=== PATIENT | female | born 1975 | race Caucasian/White ===

== ENCOUNTER 2022-11-09 15:21 | Outpatient (CLI) | payer BC, SELFPAY ==
[2022-11-09 22:29] LABS: Chloride* 101 mmol/L (96-114)
[2022-11-09 22:30] LABS: Sodium* 138 mmol/L (135-149)
[2022-11-09 22:32] LABS: Cholesterol* 186 mg/dL (90-199)
[2022-11-09 22:33] LABS: Blood Urea Nitrogen* 7 mg/dL (5-24); Calcium* 9.7 mg/dL (8.4-10.6); Carbon Dioxide* 25 mmol/L (20-32); Creatinine* 0.5 mg/dL (0.5-1.5); Estimated Glomerular Filt Rate 116 ml/min; Glucose* 126 mg/dL (60-115); Potassium* 4.1 mmol/L (3.6-5.1); Triglycerides* 375 mg/dL (40-149)
[2022-11-09 22:34] LABS: HDL Cholesterol* 30 mg/dL (>=50); LDL Cholesterol Calculated 81 mg/dL (<100)
== END 2022-11-09 15:22 | disposition home or self-care (01) ==
PROVIDERS: Visit Provider Family Medicine
DX: E03.9 Hypothyroidism, unspecified (principal); E11.9 Type 2 diabetes mellitus without complications; I10 Essential (primary) hypertension
CPT/HCPCS: 80048; 80061; 84443; 87086

== ENCOUNTER 2023-05-13 13:42 | Outpatient (CLI) | payer BC, SELFPAY ==
--- NOTE | 2023-05-13 14:00 | CRLHL7_ITS ---
For Patients: As a result of the Century Cures Act, medical imaging exams and procedure reports are released immediately into your electronic medical record. You may view this report before your referring provider. If you have questions, please contact your health care provider. DXA BONE MINERAL DENSITY STUDY Reason for exam: Menopausal syndrome, screening. Current height (in): 61. Weight (lb): 175 Menopause age: N/A Ethnicity: White 1. Have you had a previous hip or vertebral fracture? No. 2. Have you had any fractures during your adult life which did not result from significant trauma (e.g., auto accident)? No. 3. Did either of your parents have a hip fracture? No. 4. Do you smoke? No. 5. Have you ever taken Glucocorticoids? No. 6. Do you have rheumatoid arthritis? No. 7. Do you have secondary osteoporosis? No. 8. Do you drink 3 or more alcoholic drinks per day? No. 9. Are you being treated for osteoporosis? No. 10. Have you ever taken any of the following medications: Actonel, Evista, Fosamax, Miacalcin, Reclast, Boniva, Forteo, HRT (i.e., estrogen/hormone therapy), Protelos, Prolia, Vitamin D, Calcium, other ??? please specify. ANSWER: Yes, vitamin D and calcium. 11. Do you have any of the following medical conditions: Anorexia or bulimia, asthma or emphysema, end stage renal disease, hyperparathyroidism, any seizure disorders, cancer, inflammatory bowel diseases, hysterectomy, other ??? please specify. ANSWER: Yes, hyperparathyroidism. 12. What was your maximum height (inches)? 61. 13. Do you perform weight bearing exercise regularly? No. 14. Do you regularly consume dairy products? Yes. 15. Do you drink caffeinated beverages? Yes. If female: 16. At what age did your period start? 11. 17. Are you premenopausal? Yes. 18. How many full-term pregnancies have you had? 3. 19. Have you ever missed your period for more than 6 months in a row (not including or menopause)? Yes. TECHNIQUE: Bone mineral density study was performed using the [employer]. FINDINGS: The results of the study expressed as bone mineral density (BMD) are as follows: Lumbar spine L1 to L4: BMD: 1.289 g/cm2. Z-score: 2.8. Neck Left: BMD: 0.972 g/cm2. Z-score: 1.7. Right: BMD: 0.929 g/cm2. Z-score: 1.3. Total Left: BMD: 1.268 g/cm2. Z-score: 3.1. Right: BMD: 1.242 g/cm2. Z-score: 2.9. IMPRESSION: Normal findings with no increased fracture risk identified. The Z-score is within the expected range for age (Z-score above -2.0). (The World Health Organization [WHO] criteria do not apply to this patient). This patient does not fit the criteria to use the database of postmenopausal women. That database is useful for perimenopausal and postmenopausal women, and men 50 years old and older. Therefore, the T-scores are not useful to evaluate this patient and only the Z-scores are used. Matt Wilks M.D. Diagnostic Radiologist [email or web address] hunter/Dictated by: Matt Wilks MD @ 05/14/2023 9:21:00 AM (Electronically Signed)
--- NOTE | 2023-05-13 14:40 | CRLHL7_ITS ---
For Patients: As a result of the Cures Act, medical imaging exams and procedure reports are released immediately into your electronic medical record. You may view this report before your referring provider. If you have questions, please contact your health care provider. BILATERAL SCREENING MAMMOGRAM WITH COMPUTER-AIDED DETECTION AND TOMOSYNTHESIS TECHNIQUE: CC and MLO views were obtained. These mammographic images have been obtained using full-field digital technique. These mammographic images were interpreted with the benefit of computer-aided detection. Breast tomosynthesis was used in this interpretation. COMPARISON FILM: 08/20/21, 05/31/19, 03/22/17. FINDINGS: There are scattered areas of fibroglandular density. IMPRESSION: There is no radiographic evidence for malignancy. ASSESSMENT: BI-RADS Category 1: Negative RECOMMENDATION: Routine screening mammogram in 1 year. A lay language report of this examination will be provided to the patient. MATT EDUARDO M.D. Diagnostic Radiologist [email or web address] Transcribed: 05/17/2023, 1:[address]/Dictated by: Matt Eduardo MD @ 05/17/2023 10:38:00 AM (Electronically Signed)
== END 2023-05-13 13:43 | disposition home or self-care (01) ==
LOC: RAD 13:43
PROVIDERS: PCP Family Medicine; Visit Provider Family Medicine
DX: Z12.31 Encounter for screening mammogram for malignant neoplasm of breast (principal); Z13.820 Encounter for screening for osteoporosis; Z78.0 Asymptomatic menopausal state
CPT/HCPCS: 77063; 77067; 77080

== ENCOUNTER 2024-01-12 08:23 | Emergency (ER) | payer BC, MEDICAID, SELFPAY ==
[2024-01-12 08:28] VITALS: BP 153/111; PULSE 76; RESP 18; TEMP 36.2; O2SAT 100; BMI 33.1
--- NOTE | 2024-01-12 08:40 | ED.GENADULT ---
HPI - General Adult General Chief complaint: Urogenital Problems, Female Stated complaint: pain peeing /peeing blood/ back pain Time Seen by Provider: 01/12/24 08:35 History of Present Illness HPI narrative: This 48-year-old female comes in reporting dysuria symptoms including pain full voiding of urine and some low back pain. Symptoms started 2 days ago. She did take azo and Tylenol. She states that her urine is reddish colored now. She was thinking that this is blood in the urine but could be from the azo treatment. She does not report any fevers. Related Data Home Medications Medication Instructions Recorded Confirmed aspirin 81 mg tablet,delayed 81 mg PO QDAY 11/09/22 08/10/23 release blood sugar diagnostic (Contour #10 ea 08/09/23 08/09/23 Next Test Strips) Previous Rx's Medication Instructions Recorded blood-glucose sensor (Dexcom G6 #3 ea 08/10/23 Sensor device) semaglutide 0.25 mg or 0.5 mg (2 0.25 mg (0.368 mL) subcut QWEEK #3 08/10/23 mg/3 mL) subcutaneous pen injector mL ([facility]) blood-glucose transmitter (Dexcom #1 ea 08/19/23 G6 Transmitter device) bupropion HCl 300 mg 24 hr tablet, 300 mg PO QDAY #90 tabs 08/19/23 extended release epinephrine 0.3 mg/0.3 mL 0.3 ml IM ONCE #2 ea 08/19/23 injection, auto-injector fenofibrate 160 mg tablet 160 mg PO QDAY #90 tabs 08/19/23 levothyroxine 137 mcg tablet 137 mcg PO QDAY #90 tabs 08/19/23 metformin 500 mg tablet,extended 1,000 mg (2 x 500 mg) PO BID #360 08/19/23 release 24 hr tabs metoprolol succinate 100 mg 100 mg PO QDAY #90 tabs 08/19/23 tablet,extended release 24 hr omeprazole 20 mg capsule,delayed 20 mg PO QDAY #90 caps 08/19/23 release insulin aspart U-100 100 unit/mL 30 unit (0.3 mL) subcut TID #60 mL 12/08/23 (3 mL) subcutaneous pen (Novolog FlexPen U-100 Insulin aspart) insulin degludec 200 unit/mL (3 100 unit (0.5 mL) subcut QDAY #45 12/08/23 mL) subcutaneous pen (Tresiba mL FlexTouch U-200 insulin) sulfamethoxazole 800 1 tab PO BID #14 tabs 01/12/24 mg-trimethoprim 160 mg tablet (Bactrim DS) Allergies Allergy/AdvReac Type Severity Reaction Status Date / Time azithromycin Allergy Mild Unknown Verified 08/10/23 12:18 Cephalosporins Allergy Mild Unknown Verified 08/10/23 12:18 nitrofurantoin Allergy Mild Unknown Verified 08/10/23 12:18 [From Macrobid] Penicillins Allergy Mild Unknown Verified 08/10/23 12:18 Review of Systems Status of ROS: Reports: 10 or more systems reviewed and unremarkable except as noted in History and below Narrative: Constitutional: No fevers, no weight gain or loss. Eyes: No discharge. No vision changes. HENT: No congestion, no sore throat, no ear pain. Cardiovascular: No chest pain, no palpitations. Respiratory: No shortness of breath, no wheezes, no cough. Gastrointestinal: No abdominal pain, no vomiting, no diarrhea. Genitourinary: Dysuria symptoms as described above. Musculoskeletal: Normal range of motion. Skin: No rashes, no pruritis. Neurological: No dizziness, weakness, sensory change, speech change. Endo/Heme/Allergies: No bruising or bleeding. No polydipsia. Pysch: no suicidality, no anxiety, no insomnia. All other systems reviewed and are negative. [facility] Medical History (Updated 01/12/24 @ 09:32 by Rome Obrien MD) GERD (gastroesophageal reflux disease) ?K21.9 - Gastro-esophageal reflux disease without esophagitis (ICD-10) Primary hypertension ?I10 - Essential (primary) hypertension (ICD-10) Mixed hyperlipidemia ?E78.2 - Mixed hyperlipidemia (ICD-10) Type 2 diabetes mellitus, with long-term current use of insulin ?E11.9 - Type 2 diabetes mellitus without complications (ICD-10) ?Z79.4 - [facility] (current) use of insulin (ICD-10) History of vitamin D deficiency ?Z86.39 - Personal history of other endocrine, nutritional and metabolic disease (ICD-10) Vitamin D deficiency ?E55.9 - Vitamin D deficiency, unspecified (ICD-10) Hypothyroidism ?E03.9 - Hypothyroidism, unspecified (ICD-10) Polycystic ovarian syndrome ?E28.2 - Polycystic ovarian syndrome (ICD-10) Bipolar 1 disorder ?F31.9 - Bipolar disorder, unspecified (ICD-10) Family History (Updated 03/01/23 @ 11:53 by Paulina Tate ~ PSR) Father Heart disease Diabetes Grandmother Lung cancer Social History (Updated 08/10/23 @ 12:26 by Shirin Sosa ~ SMALL ENGINE SPECIALIST, SMALL ENGINE SPECIALIST) Narrative: , 4 kids, 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 Social EtOH What is your current living situation?: I presently have a place to live Problems where you live: no known problems In the past 12 months, utilities in danger of being shut off: no In past 12 months, lack of transportation kept you from medical appts, meetings, work, or getting things needed for daily living: no In the past 12 mos, have been you worried that your food would run out before you had money to buy more?: never true In the past 12 mos, the food you bought just didn't last and you didn't have money to buy more?: never true Smoking Status: Former smoker How often does anyone, including family, friends and others, physically hurt you: never How often does anyone, including family, friends and others, insult or talk down to you: rarely How often does anyone, including family, friends and others, threaten you with harm: never How often does anyone, including family, friends and others, scream or curse at you: rarely Little interest or pleasure in doing things: several days Feeling down, depressed, or hopeless: several days Exam Narrative: Exam Narrative: Constitutional: Well-developed, well-nourished, no acute distress. HEENT: Normocephalic, atraumatic. Neck: Normal range of motion. Nontender. Supple. Heart: Intact distal pulses. Lungs: No chest discomfort. No wheezes, rhonchi, or rales. Abdomen: Diffuse tenderness in the lower abdomen. Low back pain. Back: Normal range of motion. Extremities: Normal range of motion. No injury. Skin: Intact. No rash. Warm. No erythema or pallor. Neurologic: No altered sensation. No weakness. Alert and oriented. Psychiatric: No suicidality. No anxiety or depression. No insomnia. Nursing notes and vitals signs are reviewed. Const: Vital Signs, click to edit/add: Vital Signs - 24 hr 01/12/24 08:28 Temperature 97.1 F L Pulse Rate [Pulse Oximeter] 76 Respiratory Rate 18 Blood Pressure [Ri ght Upper Arm] 153/111 H Pulse Oximetry 100 Oxygen Delivery Me thod Room Air Course Vital Signs Vital signs: Initial Vital Signs Temperature 97.1 F L 01/12/24 08:28 Temperature Source Temporal Artery Scan 01/12/24 08:28 Pulse Rate 76 01/12/24 08:28 Respiratory Rate 18 01/12/24 08:28 Blood Pressure 153/111 H 01/12/24 08:28 Blood Pressure Mean 125 H 01/12/24 08:28 Pulse Oximetry 100 01/12/24 08:28 Oxygen Delivery Method Room Air 01/12/24 08:28 Vital Signs Temperature 97.1 F L 01/12/24 08:28 Pulse Rate 76 01/12/24 08:28 Respiratory Rate 18 01/12/24 08:28 Blood Pressure 153/111 H 01/12/24 08:28 Pulse Oximetry 100 01/12/24 08:28 Oxygen Delivery Method Room Air 01/12/24 08:28 Temperature 97.1 F L 01/12/24 08:28 Pulse Rate 76 01/12/24 08:28 Respiratory Rate 18 01/12/24 08:28 Blood Pressure 153/111 H 01/12/24 08:28 Pulse Oximetry 100 01/12/24 08:28 Oxygen Delivery Method Room Air 01/12/24 08:28 Medical Decision Making [facility] Narrative Medical decision making narrative: This patient comes in with dysuria symptoms typical of urinary tract infection. Urinalysis does confirm evidence of infection. The patient has normal vital signs and is not showing any signs of sepsis. She also has several allergic reactions to antibiotic medicines. She did receive a prescription for Bactrim as sulfa drugs are not listed in her previous allergies. Lab Data Labs: Lab Results 01/12/24 Range/Units 08:31 Urine Color Yellow (Yellow) Urine Appearance Cloudy A (Clear) Urine pH 7.0 (5.0-8.5) Ur Specific [place] 1.015 (1.000-1.030) Urine Protein 2+ A (Negative) Urine Glucose (UA) Trace A (Negative) Urine Ketones Negative (Negative) Urine Blood 3+ A (Negative) Urine Nitrite Negative (Negative) Urine Bilirubin Negative (Negative) Urine Urobilinogen 0.2 (0.2-1.0) Ur Leukocyte Esterase 3+ A (Negative) Urine RBC >100 A (0-2) Urine WBC >100 A (0-5) Ur Squamous Epith Cells Moderate A (None-Few) Urine Bacteria Many A (None) Discharge Plan Discharge Clinical Impression: Urinary tract infection Patient Disposition: Home, Self-Care Condition: Stable Additional Instructions: Take medication as prescribed. Follow up with MD return if worsening. Prescriptions: New sulfamethoxazole-trimethoprim [Bactrim DS] 800-160 mg tablet 1 tab PO BID Qty: 14 0RF No Action aspirin 81 mg tablet,delayed release (DR/EC) 81 mg PO QDAY (DME) Contour Next Test Strips Strip See Rx Instructions .ROUTE .MEDSUPPLY Qty: 10 Rx Instructions: As directed Ozempic 0.25 mg or 0.5 mg (2 mg/3 mL) pen injector 0.25 mg subcut QWEEK Qty: 3 1RF Rx Instructions: for 4 weeks then increase to 0.5 mg weekly (DME) Dexcom G6 Sensor Device See Rx Instructions .Route Qty: 3 5RF Rx Instructions: Change every 10 days omeprazole 20 mg capsule,delayed release(DR/EC) 20 mg PO QDAY Qty: 90 1RF metformin 500 mg tablet extended release 24 hr 1,000 mg PO BID Qty: 360 1RF levothyroxine 137 mcg tablet 137 mcg PO QDAY Qty: 90 1RF fenofibrate 160 mg tablet 160 mg PO QDAY Qty: 90 1RF bupropion HCl 300 mg tablet extended release 24 hr 300 mg PO QDAY Qty: 90 1RF (DME) Dexcom G6 Transmitter Device See Rx Instructions .Route Qty: 1 0RF Rx Instructions: As directed metoprolol succinate 100 mg tablet extended release 24 hr 100 mg PO QDAY Qty: 90 1RF epinephrine 0.3 mg/0.3 mL auto-injector 0.3 ml IM ONCE Qty: 2 2RF Rx Instructions: as a single dose; may repeat once insulin degludec [Tresiba FlexTouch U-200] 200 unit/mL (3 mL) insulin pen 100 unit subcut QDAY Qty: 45 0RF Rx Instructions: Please dispense covered brand per insurance. insulin aspart U-100 [Novolog FlexPen U-100 Insulin] 100 unit/mL (3 mL) insulin pen 30 unit subcut TID Qty: 60 2RF Follow Up/Referrals: Matt Barroso MD [Primary Care Provider] - Stand Alone Forms: [facility] Info Instructions
[2024-01-12 08:55] LABS: Appearance Urine Cloudy (Clear); Bilirubin Urine Negative (Negative); Blood Urine 3+ (Negative); Color Urine Yellow (Yellow); Glucose Urine Trace (Negative); Ketones Urine Negative (Negative); Leukocyte Esterase Urine 3+ (Negative); Nitrite Urine Negative (Negative); Protein Urine 2+ (Negative); Specific Gravity Urine 1.015 (1.000-1.030); Urobilinogen Urine 0.2 (0.2-1.0)
[2024-01-12 09:13] LABS: Bacteria Urine Many; RBC Urine >100 (0-2); Squamous Epithelial Cell Urine Moderate (None-Few); WBC Urine >100 (0-5)
== END 2024-01-12 09:42 | disposition home or self-care (01) ==
PROVIDERS: Emergency Provider Emergency Medicine Emergency Medical Services; PCP Family Medicine
DX: N39.0 Urinary tract infection, site not specified (principal)
CPT/HCPCS: 81001; 87086; 87186; 99283; 99284

== ENCOUNTER 2024-02-11 14:25 | Outpatient (CLI) | payer BC, MEDICAID, SELFPAY ==
--- OUTSIDE RECORDS SUMMARY | 2024-02-11 14:28 | XMS_ITS | Clinical Summary ---
Author Name Unknown Organization [facility] Address [place], [place] [address] Care Team Providers Care Sales Representative Door To Door Name Role Phone Pcp, No Primary Care Provider Unavailabl e Allergies Active Allergy Reactions Criticality Noted Date Comments Azithromycin *Unknown 01/09/2015 Cephalosporins Anaphylaxis 10/14/2006 Nitrofurantoin Anaphylaxis High 09/11/2015 Penicillins Anaphylaxis 10/14/2006 Medications Medication Sig Dispensed Refills Start Date End Date Status EPINEPHrine (EPIPEN) 0.3 mg/0.3 mL injectionIndicatio ns:Anaphylaxis, sequela Inject 1 pen intramuscular as directed if needed. 2 Each 3 05/25/2019 Active Blood-Glucose MeterIndications:U ncontrolled type 2 diabetes mellitus with hyperglycemia (HC) Accucheck Liberty meter 1 Device 05/25/2019 Active blood sugar diagnostic (ACCU-CHEK LIBERTY PLUS TEST STRP) stripIndications:U ncontrolled type 2 diabetes mellitus with hyperglycemia (HC) Dispense test strips covered by the patient insurance. Test 2 times per day. 200 Each 2 05/25/2019 Active lancets (ACCU-CHEK MULTICLIX LANCET)Indications :Uncontrolled type 2 diabetes mellitus with hyperglycemia (HC) Dispense item covered by pt ins. E11.9 NIDDM type II - Test 2 times/day. 200 Each 2 05/25/2019 Active pen needle, diabetic (BD INSULIN PEN NEEDLE UF) 31 gauge x 5/16Indications:D iabetes mellitus without complication (HC) Injects 5 times a day 500 Each 3 06/26/2019 Active flash glucose sensor (FREESTYLE SE 14 DAY SENSOR) kitIndications:Unc ontrolled type 2 diabetes mellitus with hyperglycemia (HC) As directed. Wear each for 14 days 2 Each 11 08/31/2019 Active blood-glucose meterIndications:U ncontrolled type 2 diabetes mellitus with hyperglycemia (HC) Dispense meter, test strips, lancets covered by pt ins. E11.65 NIDDM type II, uncontrolled - Test 3 times/day, Reason: High A1C 1 Device 04/17/2020 Active medroxyPROGESTERon e (PROVERA) 5 mg tabletIndications: PCOS (polycystic ovarian syndrome) 5 mg daily for 10 days every 2-3 months for endometrial protection 60 tablet 2 04/17/2020 Active nicotine (NICOTROL) 10 mg inhalerIndications :Encounter for smoking cessation counseling Inhale 10 mg by mouth every hour if needed for Nicotine Craving. 168 Each 2 09/25/2020 Active aspirin chewable 81 mg chewable tabletIndications: Diabetes mellitus without complication (HC) Take 1 tablet by mouth once daily with a meal. 90 tablet. 3 09/25/2020 Active metoprolol succinate (TOPROL XL) 100 mg Sustained-Release tabletIndications: Essential hypertension Take 1 Tablet (100 mg) by mouth once daily. 90 tablet. 1 08/27/2021 Active metFORMIN (GLUCOPHAGE XR) 500 mg Extended-Release tabletIndications: Uncontrolled type 2 diabetes mellitus with hyperglycemia (HC) Take 2 Tablets (1,000 mg) by mouth 2 times daily with meals. 360 tablet. 1 08/27/2021 Active levothyroxine (SYNTHROID) 137 mcg tabletIndications: Hypothyroidism, unspecified type Take 1 Tablet (137 mcg) by mouth once daily. 90 tablet. 1 08/27/2021 Active liraglutide (VICTOZA) 0.6 mg/0.1 mL (18 mg/3 mL) injectionIndicatio ns:Uncontrolled type 2 diabetes mellitus with hyperglycemia (HC) Inject 0.6 mg subcutaneous once daily. 9 mL 08/27/2021 Active buPROPion (WELLBUTRIN XL) 300 mg Extended-Release tabletIndications: Bipolar affective disorder, remission status unspecified (HC) Take 1 Tablet (300 mg) by mouth every morning. 90 Tablet 1 08/27/2021 Active insulin degludec, U-200, (Tresiba FlexTouch U-200) 200 unit/mL (3 mL) penIndications:Unc ontrolled type 2 diabetes mellitus with hyperglycemia (HC) INJECT 110 UNITS SUBCUTANEOUSLY ONCE DAILY 54 mL 09/18/2021 Active insulin aspart, U-100, (NovoLOG Flexpen U-100 Insulin) 100 unit/mL (3 mL) penIndications:Unc ontrolled type 2 diabetes mellitus with hyperglycemia (HC) Inject 40 units subcutaneous 3 times daily before meals. Plus Corrective dose insulin 90 mL 09/18/2021 Active Active Problems Problem Noted Date Diagnosed Date Uncontrolled type 2 diabetes mellitus with hyper glycemia 08/31/2019 Hypothyroidism (acquired) 08/31/2019 Amenorrhea 08/31/2019 Abdominal pain, RUQ (right upper quadrant) 02/07 Type 2 diabetes mellitus wit hout complication, with long-term current use of insulin 09/19/2017 Hypothyroidism 01/20/2016 Fatty infiltration of liver 11/13/2013 Hyperlipidemia 09/08/2011 Hypertension 07/08/2008 Bipolar disorder, unspecified 01/11/2007 Polycystic ovaries 10/14/2006 Resolved Problems Problem Noted Date Diagnosed Date Resolved Date Type 2 diabetes mellitus without complication 10/14/20 15 09/19/2017 Cough 09/27/2012 12/26/2012 [facility] CONTRACT 11/03/2010 011 Overview: This patient, PCP and Care Guide have signed a letter agreeing on a set of goals for diabetes, hypertension and/or CHF. Please look for [facility] Goal Contract in Chart Review/ Letters and support this effort. Please direct questions to Care Guide Reyna Mendoza Phone number [phone] Hypothyroidism 10/14/2006 01/20/2016 Type 2 Diabetes A1C < 7.5 09/18/2002 Immunizations Name Administration Dates Next Due AMB Influenza, IIV3 (Age >=3 years)(Flu Clinic Only) 07/26/2009 COVID-19 vaccine ([place] [employer] Seeking 30mcg/0.3mL) PF, MDV 11/28/2020,11/07/2020 DTP 09/10/1978, 5,1975,1974 Hepatitis B (Adult) 07/24/2014 Influenza A (H1N1), Inactiva natasha (Age >=3 Years) 10/15/2009 Influenza, IIV3 (Age >=3 years) 08/02/20 12,10/31/2010,10/05/2008,2007,08/13/2006 Influenza, IIV4 08/12/2018, 7,07/23/2016,2014 Influenza,LAIV4 Live Intrana morris (Flumist) 07/24/2014 MMR 02/01/1976 Oral Polio Vaccine 09/10/1978, 5,1975,1974 Td (Age >=7 Years) 03/10/1996 Tdap 03/05/2021,03/20/2010 Family History Medical History Relation Name Comments Psychiatric illness Brother Bipolar GI Disease Father Hepatitis C Psychiatric illness Father bipolar Diabetes Maternal Grandmother Cancer-breast Other paternal cousi n Diabetes Paternal Grandfather Psychiatric illness Paternal Grandfather bipolar Diabetes Paternal Grandmother Diabetes Paternal Uncle Relation Name Status Comments Brother Father Maternal Grandmother Other Paternal Grandfather Paternal Grandmother Paternal Uncle Social History Tobacco Use Types Packs/Day Years Used Date Smoking Tobacco: Every Day Cigarettes Smokeless Tobacco: Never Tobacco Cessation:Counseling Given: Yes Comments:1-2 a day Alcohol Use Standard Drinks/Week Comments Yes 4 (1 standard drink = 0.6 oz pur e alcohol) PHQ-2 Answer Date Recorded PHQ-2 TOTAL SCORE 3 08/27/2021 Social Connections Answer Date Recorded Frequency of Communication with Friends and Fami ly Not on file 10/18/2021 Financial Resource Strain Answer Date R ecorded Difficulty of Paying Living Expenses Not on file 10/18/2021 Difficulty of Paying Living Expenses Not on file 10/18/2021 Sex and Gender Information Value Date Recorded Sex Assigned at Not on file Gender Identity Not on file Sexual Orientation Not on file Obstetrics History Para Term AB IAB SAB Ectopic Multiple Livin g Live Births 9 5 3 0 3 0 2 0 0 3 5 Date Outcome GA Total Labor Labor/2nd/3rd Weight Sex Delivery Anes PTL Soheila A1 A5 Name Cl in Para Para Comments:System Genera natasha. Please review and update details. 10/18 SAB 4w0 d SPONTANEO US Dece ased 10/18 SAB 6w0 d SPONTANEO US Dece ased 10/18 Term 38w 0d 3.32 kg (7 lb 5 oz) M Vag Epidu ral Maribel ng Fran [place] Delivery Location:[facility] 07/24 Term 39w 0d 3.54 kg (7 lb 13 oz) M Vag Epidu ral Maribel ng 9 9 Ap [place] Delivery Location:[facility] 05/09 Term 38w 0d 3.74 kg (8 lb 4 oz) M VAGINAL VACU Epidu ral Maribel ng 4 9 [place] Delivery Location:[facility] 06/12 AB 6w0 d Last Filed Vital Signs Vital Sign Reading Time Taken Comments Blood Pressure 130/83 08/27/2021 1:23 PM [facility] Pulse 68 08/27/2021 1:23 PM [facility] Temperature 37.2 ??C (99 ??F) 07/08/2020 2:26 PM CDT Respiratory Rate 20 04/05/2019 5:49 PM CDT Oxygen Saturation 98% 08/27/2021 1:23 PM [facility] Inhaled Oxygen Concentration - - Weight 83 kg (183 lb) 08/27/2021 1:23 PM [facility] Height 157.5 cm (5' 2) 07/08/2020 2:26 PM CDT Body Mass Index 33.47 07/08/2020 2:26 PM CDT Plan of Treatment Health Maintenance Due Date Last Done Comments Colonoscopy through age 75 02/29/2020 BMI (ht and wt on same day) for age 18+ 07/08/2021 07/08/2020, 04/17/2020, 08/31/2019, Additional history exists Mammogram for age 45-75 08/20/2022 08/20/20, 05/31/2019, 03/22/2017, Additional history exists Depression screening for age 12+ 08/28/2022 08/28/2021, 08/27/2021, 09/25/2020, Additional history exists COVID-19 vaccine series ( season) 2023 11/28/2020, 11/07/2020 Lipids for age 45-75 01/19/2024 01/18/2019, 01/18/2019, 05/20/2018, Additional history exists Influenza for age 9-49 06/18/2024 8, 09/06/2017, 07/23/2016, Additional history exists Pap test for age 21-65 03/05/2026 , 03/05/2021, 12/16/2012, Additional history exists Tetanus booster 03/05/2031 03/05/2021, 06/12/2009, 03/20/2010, Additional history exists HIV for age 15-65 Completed 10/20/2007 Hepatitis C screening for age 18-79 Completed 11/03/2013, 07/06/2008 Tdap Completed 03/05/2021, 03/20/2010 Pneumococcal series for age 6-64 Aged Out No longer eligible based on patient's age to complete this topic Procedures Procedure Name Priority Date/Time Associated Diagnosis Comments XR MAMMO VAN BILAT SCREEN Routine 08/20/2021 11:20 AM CDT Visit for screening mammogram CENTER DIRECTOR LEAD 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 THIN PREP PAP SCREEN IMAGED Routine 03/05/2021 11:34 AM CDT Screening for cervical cancer LIPID PANEL W REFLEX MEASURED LDL Add On 01/18/2019 11:19 AM CDT Dyslipidemia ANTI HCV Routine 11/03/2013 12:33 PM [facility] Elevated LFTs ANTI HIV 1/2 Routine 10/20/2007 2:07 PM [facility] Supervision Of Other Normal from Last 3 Months or Most Recently Relevant to Health Maintenance Results * XR MAMMO VAN BILAT SCREEN (08/20/2021 11:20 AM CDT) Anatomical Region Laterality Modality BREASTS, Breast Left, Breast Right Bilateral Mammography 08/21/2021 2:14 PM CDT Impressions 08/21/2021 4:31 PM CDT RIGHT axillary lymph node enlargement. RECOMMENDATIONS: RIGHT axillary ultrasound recommended. BI-RADS Category 0: Incomplete: Need Additional Imaging Evaluation. A member of the breast health care team will contact the patient to schedule the required additional imaging appointment(s). Dictated by: Matt Wilks MD @08/21/2021 2:14:15 PM/CRL:pjt PATIENTS: You will also receive a letter with your examination results in an easy to read format. ??If you have questions about your results, please contact your referring provider. Narrative 08/21/2021 4:31 PM CDT For Patients: As a result of the 21st Century Cures Act, medical imaging exams and procedure reports are released immediately into your electronic medical record. ??You may view this report before your referring provider. ?? If you have questions, please contact your health care provider. BILATERAL DIGITAL SCREENING MAMMOGRAM WITH COMPUTER-AIDED DETECTION WITH TOMOSYNTHESIS, 08/20/2021 CLINICAL HISTORY: Routine screening exam. COMPARISON: 05/31/2019, 03/22/2017. TECHNIQUE: Digital mammogram in CC and MLO projections including computer-aided detection (CAD). BREAST COMPOSITION: There are scattered areas of fibroglandular density. FINDINGS: RIGHT Breast: Enlarged RIGHT axillary lymph node. LEFT Breast: No suspicious findings. Oliva Ca MD MAMMO * CENTER DIRECTOR LEAD TEACHER THIN PREP PAP SCREEN IMAGED [[id number]] (03/05/2021 11:34 AM CDT) Case Report Gynecologic Cytology Report ? Case: [id number] ? Authorizing Provider: ??Oliva Ca MD ? Collected: ? 03/05/2021 1134 ? Ordering Location: ? [facility] ?? Received: ?03/05/2021 1244 ? Clinic ? First Screen: ?Ashleigh Bradley ? Specimen: ?CENTER DIRECTOR LEAD TEACHER ThinPrep Vial Screening, Cervical ? 03/14/2021 11:00 AM CDT [facility] [employer] LABORAT[facility]-C ENTRAL LABORATORY INTERPRETATION/ RESULT NEGATIVE FOR INTRAEPITHELIAL LESION OR MALIGNANCY (NIL) (none) 03/14/2021 11:00 AM CDT [facility]- ENTRAL LABORATORY NISM(S) Fungal organisms morphologically consistent with Марина species 03/14/2021 11:00 AM CDT [facility] [employer] LABORATORY-C ENTRAL LABORATORY SPECIMEN ADEQUACY Satisfactory for evaluation Endocervical component present 03/14/2021 11:00 AM CDT [facility] [employer] LABORATORY-C ENTRAL LABORATORY HPV REQUEST HPV and PAP 03/14/2021 11:00 AM CDT [facility] [employer] [facility] ENTRAL LABORATORY Date of LMP 11/08/2020 03/14/2021 11:00 AM CDT [facility] [employer] [facility] Last Pap Date 2013 03/14/2021 11:00 AM CDT [facility] [employer] [facility] EN[facility]AL [facility] Last Pap Result NIL 11:00 AM CDT [facility] [employer] LABORAT[facility]-C ENTRAL LABORATORY Abnormal Pap or [place] Bx in last 5 years No 03/14/2021 11:00 AM CDT [facility] [employer] [facility] Menstrual Status Regular Periods 03/14/2021 11:00 AM CDT [facility] [employer] [facility] EN[facility]AL LAB[facility] [place] Bx Done Today No 03/14/2021 11:00 AM CDT [facility] [employer] [facility]- ENTRAL LABORATORY Additional Information None given 03/14/2021 11:00 AM CDT [facility] [employer] [facility]- ENTRAL LABORATORY Comment: Cytology is screened at [facility] - [address], [place] [address] and [facility] - [address], [place] [address] and [facility] - [address] [place] [address] Interpreted at [facility] - [address], [place] [address] Automated Review Successful 03/14/2021 11:00 AM CDT [facility] Comment:Specimen processed s uccessfully by automated construction inspector device, ThinPrep Imaging System, [employer] [facility] DIRECTOR LEAD TEACHER HPV Ordered, Please see separate report 03/14/2021 11:00 AM CDT [facility] Note The pap test is a screening technique, not a diagnostic procedure. It is used primarily to screen for squamous cancers and precursor lesions. Published studies have shown that it is subject to both false negative and false positive results. The pap test should not be used as the sole means to diagnose or exclude pre-malignant and malignant lesions. 03/14/2021 11:00 AM CDT [facility] Other (Cervical) Non-Blood / Unknown 03/05/2021 11:34 AM CDT 03/05/2021 12:44 PM CDT Oliva Ca MD PATHOLOGY/CYTOLOGY [facility] [address] [place] [address], [place] * (ABNORMAL) LIPID PANEL W REFLEX MEASURED LDL (01/18/2019 11:19 AM CDT) CHOLESTEROL,TOTAL 188 100 - 199 mg/dL 01/18/2019 5:31 PM CDT [facility] TRIGLYCERIDES 423(H) <150 mg/dL 01/18/2019 5:31 PM CDT [facility] HDL CHOLESTEROL 28(L) >40 mg/dL 9 5:31 PM CDT [facility] NON-HDL CHOLESTEROL 160(H) <145 mg/dl 01/18/2019 5:31 PM CDT [facility] CHOL/HDL RATIO 6.71(H) <4.50 01/18/2019 5:31 PM CDT [facility] LDL CHOLESTEROL 9 5:31 PM CDT [facility] Comment:Invalid LDL when Tri g >400, reflexed to measured LDL PROVIDER ORDERED STATUS RANDOM 01/18/2019 5:31 PM CDT [facility] Blood BLOOD SPECIMEN / Unknown Venipuncture / Unknown 01/18/2019 11:19 AM CDT 01/18/2019 11:19 AM CDT [facility] [address] [place] [address], * ANTI HCV (11/03/2013 12:33 PM [facility]) ANTI HCV Non-reacti ve [facility] Blood specimen (specimen) BLOOD SPECIMEN / Unknown 11/03/2013 12:33 PM [facility] 11/03/2013 12:13 PM [facility] Karen [facility] SEND OUTS [facility] [place]NAL ZIP [id number] [place] [address] * ANTI HIV 1/2 (10/20/2007 2:07 PM [facility]) ANTI HIV 1/2 Non-reacti ve [facility] Blood specimen (specimen) BLOOD SPECIMEN / Unknown 10/20/2007 2:07 PM [facility] 10/20/2007 1:59 PM [facility] Matt Barroso MD SEND OUTS [facility] [place]IP [address] [address] [place] [address] from Last 3 Months or Most Recently Relevant to Health Maintenance Care Teams Sales Representative Door To Door Relationship Specialty Start Date End Date Pcp, No . PCP - General 10/02/21
--- OUTSIDE RECORDS SUMMARY | 2024-02-11 14:28 | XMS_ITS | Clinical Summary ---
Author Name Unknown Organization [facility] Address [address] [place] [address] Care Team Providers Care Assembly Machine Set Up Mechanic Name Role Phone Unavailable Primary Care Provider Unavailabl e Source Comments You are receiving this document as you are listed as the primary care provider,follow-up provider, or the patient has been referred to you for consultation.This is in compliance with the Medicare and[facility] EHR Incentive Program,which states Providers who transition their patient to another setting of careor provider of care or refers their patient to another provider of care shouldprovide summary care record for each transition of care or referral. [facility] SystemsUniversity [facility]als[facility] Allergies Active Allergy Reactions Criticality Noted Date Comments Azithromycin Rash 07/23/2022 Cephalosporins Anaphylaxis High 10/14/2006 Nitrofurantoin Anaphylaxis High 09/11/2015 Penicillins Anaphylaxis High 10/14/2006 Medications Medication Sig Dispensed Refills Start Date End Date Status aspirin 81 MG chewable tablet Chew and swallow 81 mg by mouth daily. Active omeprazole (PRILOSEC-OTC) 20 MG tabletIndications: Heartburn Take 20 mg by mouth daily. Indications: Heartburn Active Continuous Blood Gluc Sensor (FREESTYLE SE 14 DAY SENSOR) MISCIndications:Un controlled type 2 diabetes mellitus with hyperglycemia (HRC) Change every 14 days 6 Each 3 07/23/2022 Active metoprolol succinate (TOPROL XL) 100 MG 24 hour release tabletIndications: Hypertension, unspecified type (HRC) Take 1 Tablet (100 mg) by mouth daily. 90 Tablet 1 07/23/2022 Active NOVOLOG FLEXPEN 100 UNIT/ML pen injectionIndicatio ns:Uncontrolled type 2 diabetes mellitus with hyperglycemia (HRC) 46u with breakfast and lunch and 40u at supper 90 mL 1 07/23/2022 Active omeprazole (PRILOSEC) 20 MG capsuleIndications :Gastroesophageal reflux disease, unspecified whether esophagitis present Take 1 Capsule (20 mg) by mouth daily. Take 1 hour before a meal. 90 Capsule 3 07/23/2022 Active metFORMIN XR (GLUCOPHAGE XR) 500 MG 24 hour release tabletIndications: Uncontrolled type 2 diabetes mellitus with hyperglycemia (HRC) Take 4 Tablets (2,000 mg) by mouth every evening with a meal. 360 Tablet 1 07/23/2022 Active EPINEPHrine (EPIPEN) 0.3 MG/0.3ML injection Inject 0.3 mL (0.3 mg) intramuscularly once as needed for up to 1 dose. May repeat. 2 Each 1 07/23/2022 Active exenatide ER (BYDUREON BCISE) 2 MG/0.85ML injection penIndications:Unc ontrolled type 2 diabetes mellitus with hyperglycemia (HRC) Inject 0.85 mL (2 mg) subcutaneously once a week. 3.4 mL 1 07/23/2022 Active EUTHYROX 137 MCG tabletIndications: Hypothyroidism (acquired) (HRC) Take 1 Tablet (137 mcg) by mouth daily. 90 Tablet 3 07/23/2022 Active blood glucose (CONTOUR NEXT TEST) test stripIndications:U ncontrolled type 2 diabetes mellitus with hyperglycemia (HRC) Use to test bg 3 times daily. Use as directed. 200 Each 11 07/24/2022 Active Microlet Lancets lancetsIndications :Uncontrolled type 2 diabetes mellitus with hyperglycemia (HRC) Use 1 Each to test three times a day. 200 Each 11 07/24/2022 Active buPROPion (WELLBUTRIN XL) 300 MG 24 hour release tabletIndications: Major depressive disorder, recurrent episode, mild (HRC) Take 1 tablet by mouth once daily 90 Tablet 08/18/2023 Active TRESIBA FLEXTOUCH 200 UNIT/ML SOPNIndications:Un controlled type 2 diabetes mellitus with hyperglycemia (HRC) INJECT 112 UNITS UNDER THE SKIN ONCE DAILY. PLEASE SCHEDULE CLINIC APPOINTMENT FOR FURTHER REFILLS! 18 mL 09/16/2023 Active Active Problems Problem Noted Date Diagnosed Date Major depressive disorder, recurrent episode, mi ld 07/23/2022 Uncontrolled type 2 diabetes mellitus with hyper glycemia 08/31/2019 Hypothyroidism (acquired) 01/20/2016 Hyperlipidemia 09/08/2011 Hypertension 07/08/2008 Immunizations Name Administration Dates Next Due DTP 09/10/1978, 5,1975, 975 Flu Vac (3+ yrs) 08/02/2012, 1,07/26/2009, 008,10/20/2007,08/13/2006,09/15/2005,01/2002 [id number] 10/15/2009 HepB Adult (Engerix-B, 20+ y rs, 3 dose series) 07/24/2014 Influenza [id number] 10/15/2009 Influenza IIV4 (Quadrivalent ) 0.5mL (79365) 08/12/2018,09/06/2017,07/23/2016, 015,10/15/2009 Influenza LAIV (Nasal, 2-49 yrs) 07/24/2014 Influenza Vaccine TIV, Nasal 07/24/2014 MMR 02/01/1976 OPV, Trivalent (Orimune or tOPV) 978,1975,1975, 975 Pfizer Monovalent 12+ Purple Top 11/28/2020,10/19 Td 03/10/1996 Tdap 03/05/2021,03/20/2010 Social History Tobacco Use Types Packs/Day Years Used Date Smoking Tobacco: Some Days Cigarettes 1 3 Tobacco Cessation:Ready to Q uit: Not Asked; Counseling Given: Not Answered Alcohol Use Standard Drinks/Week Comments Yes 2 (1 standard drink = 0.6 oz pur e alcohol) PHQ-2 Answer Date Recorded PHQ-2 Score 0 07/23/2022 Sex and Gender Information Value Date Recorded Sex Assigned at Not on file Gender Identity Not on file Sexual Orientation Not on file Last Filed Vital Signs Vital Sign Reading Time Taken Comments Blood Pressure 138/91 07/23/2022 9:15 AM CDT Pulse 65 07/23/2022 9:15 AM CDT Temperature - - Respiratory Rate - - Oxygen Saturation - - Inhaled Oxygen Concentration - - Weight 84.4 kg (186 lb) 07/23/2022 9:15 AM CDT Height 154.3 cm (5' 0.75) 07/23/2022 9:15 AM CD T Body Mass Index 35.43 07/23/2022 9:15 AM CDT Plan of Treatment Health Maintenance Due Date Last Done Comments Diabetes: Eye Exam 1975 Diabetes: Foot Exam 1975 Hep C Screening (Preventive Services) 1975 Mammogram 1975 Pneumococcal (1 - PCV) 1981 HIV Screening (Preventive Services) 1991 Adult Preventive Visit 1993 HepB (2) 08/21/2014 07/24/2014 FIT Colon Cancer Screening 2019 Diabetes: HGBA1C 10/23/2022 07/23/2022, 08/27/2021 COVID-19 Vaccine ( season) 2023 11/28/2020, 11/07/2020 Influenza (#1) 2023 08/12/2018, 08/19, 07/23/2016, Additional history exists Diabetes: Creatinine 07/23/2023 07/23/2022 Diabetes: Urine Microalbumin 07/23/2023 07/23/2022 Zoster/Shingles (1 of 2) 2025 Cervical Cancer Screening 03/05/2026 03/05/2021 (Com pleted) Diabetes: Lipid Panel 07/23/2027 07/23/2022 DTaP/Tdap/Td (7 - Tdap) 03/05/2031 03/05/20, 03/20/2010, 03/10/1996, Additional history exists IPV (Polio) Completed 09/10/1978, 08/18, 1975, Additional history exists Cholesterol Discontinued 07/23/2022 HepA Aged Out No longer eligi ble based on patient's age to complete this topic Hib Aged Out No longer eligi ble based on patient's age to complete this topic MCV4 Aged Out No longer eligi ble based on patient's age to complete this topic Procedures Procedure Name Priority Date/Time Associated Diagnosis Comments ALBUMIN/CREAT RATIO Routine 07/23/2022 11:01 AM CDT Uncontrolled type 2 diabetes mellitus with hyperglycemia (HRC) BASIC METABOLIC PANEL Routine 07/23/2022 10:53 AM CDT Uncontrolled type 2 diabetes mellitus with hyperglycemia (HRC) HGB A1C Routine 07/23/2022 10:53 AM CDT Uncontrolled type 2 diabetes mellitus with hyperglycemia (HRC) LIPID PANEL & DIRECT LDL (IF NEEDED) Routine 07/23/2022 10:53 AM CDT Uncontrolled type 2 diabetes mellitus with hyperglycemia (HRC) from Last 3 Months or Most Recently Relevant to Health Maintenance Results * (ABNORMAL) Albumin/Creatinine Ratio,Random Urine (07/23/2022 11:01 AM CDT) Albumin/Creati nine Ratio, Urine, Random 65(H) <30 mg/g 07/23/2022 4:17 PM CDT [facility] Albumin, Urine, Random 13.0 mg/L 07/23/2022 4:17 PM CDT [facility] Creatinine, Urine, Random 20 >20 mg/dL mg/dL 07/23/2022 4:17 PM CDT [facility] Urine Non-blood Collection / Unknown 07/23/2022 11:01 AM CDT 07/23/2022 11:01 AM CDT Casi Irvin PA-C LAB_1 [facility] [address] [phone] * (ABNORMAL) Lipid Panel and Direct LDL(If Needed) (07/23/2022 10:53 AM CDT) Cholesterol 199 0 - 199 mg/dL 07/23/2022 3:59 PM CDT [facility] Triglyceride 297(H) <=149 mg/dL 07/23/2022 3:59 PM CDT [facility] HDL Cholesterol 33(L) >=40 mg/dL 07/23/2022 3:59 PM CDT [facility] LDL, Calculated 107 <130 mg/dL 07/23/2022 3:59 PM CDT [facility] Non HDL Chol, Calculated 166(H) <=159 mg/dL 07/23/2022 3:59 PM CDT [facility] Cholesterol/HDL Ratio 6.0 07/23/2022 3:59 PM T [facility] Hours Fasting N/A 07/23/2022 3:59 PM CDT [facility] Blood Venipuncture / Unknown 07/23/2022 10:53 AM CDT 07/23/2022 10:53 AM CDT Casi Irvin PA-C LAB_1 [facility] [address] [address] [phone] [facility] [address] [place] [address] [phone] * (ABNORMAL) Basic Metabolic Panel (07/23/2022 10:53 AM CDT) Sodium 140 136 - 145 mmol/L 07/23/2022 3:59 PM CDT [facility] Potassium 4.4 3.5 - 5.1 mmol/L 07/23/2022 3:59 PM CDT [facility] Chloride 102 98 - 109 mmol/L 07/23/2022 3:59 PM CDT [facility] CO2 27 20 - 29 mmol/L 07/23/2022 3:59 PM CDT [facility] Anion Gap 11 7 - 16 mmol/L 07/23/2022 3:59 PM CDT [facility] Calcium 9.6 8.4 - 10.4 mg/dL 07/23/2022 3:59 PM CDT [facility] BUN 6(L) 7 - 26 mg/dL 07/23/2022 3:59 PM CDT [facility] Creatinine 0.56 0.55 - 1.02 mg/dL 07/23/2022 3:59 PM CDT [facility] GFR, Estimated >60 >60 mL/min/1. 73m2 07/23/2022 3:59 PM CDT [facility] Glucose 138(H) 70 - 100 mg/dL 07/23/2022 3:59 PM CDT [facility] Comment:The given reference range is for the fasting state. Non-fasting reference range for glucose is 70 - 180 mg/dL. Hours Fasting N/A 07/23/2022 3:59 PM CDT [facility] Blood Venipuncture / Unknown 07/23/2022 10:53 AM CDT 07/23/2022 10:53 AM CDT Casi Irvin PA-C LAB_1 Performing Organization Address [facility] Co de Phone Number [facility] [address] [place] [address], [facility] [phone] [facility] [address] [place] [address], [facility] [phone] * (ABNORMAL) Hgb A1C (07/23/2022 10:53 AM CDT) Hemoglobin A1C 9.4(H) <=5.6 % 07/23/2022 4:14 PM CDT [facility] Blood Venipuncture / Unknown 07/23/2022 10:53 AM CDT 07/23/2022 10:53 AM CDT Narrative [facility] - 07/23/2022 4:14 PM CDT For patients not previously diagnosed with diabetes: 5.7-6.4%: Increased risk for diabetes 6.5% and greater: Diagnostic for diabetes For patients diagnosed with diabetes: <8.0%: Goal of therapy for ages 18-75 Clinicians may recommend a higher or lower goal for specific individuals. Casi Irvin PA-C LAB_1 Performing Organization Address City/[facility] Co de Phone Number [facility] [address] [place] [address], [facility] [phone] from Last 3 Months or Most Recently Relevant to Health Maintenance
== END 2024-02-11 14:26 | disposition home or self-care (01) ==
PROVIDERS: PCP Family Medicine; Visit Provider Family Medicine
DX: E78.2 Mixed hyperlipidemia (principal); E03.9 Hypothyroidism, unspecified; I10 Essential (primary) hypertension; E11.65 Type 2 diabetes mellitus with hyperglycemia; Z79.4 Long term (current) use of insulin
CPT/HCPCS: 80048; 80061; 80076; 84443

== ENCOUNTER 2024-08-07 11:12 | Outpatient (CLI) | payer BC, MEDICAID, SELFPAY ==
--- OUTSIDE RECORDS SUMMARY | 2024-08-07 11:16 | XMS_ITS | Clinical Summary ---
Author Organization [facility] Address [address] [place] [address] Care Team Providers Care Biology Professor Name Role Phone Unavailable Primary Care Provider Unavailabl e Source Comments You are receiving this document as you are listed as the primary care provider,follow-up provider, or the patient has been referred to you for consultation.This is in compliance with the Medicare and[facility] EHR Incentive Program,which states Providers who transition their patient to another setting of careor provider of care or refers their patient to another provider of care shouldprovide summary care record for each transition of care or referral. [employer] Allergies Active Allergy Reactions Criticality Noted Date [...] Flu Vac (3+ yrs) 08/02/2012, 1,07/26/2009, 008,10/20/2007,08/13/2006,09/15/2005,01/2002 [id number] 10/15/2009 HepB Adult (Engerix-B, 20+ y rs, 3 dose series) 07/24/2014 Influenza T7X4-18 10/15/2009 Influenza IIV4 (Quadrivalent ) 0.5mL (93624) 08/12/2018,09/06/2017,07/23/2016, 015,10/15/2009 Influenza LAIV (Nasal, 2-49 yrs) 07/24/2014 Influenza LAIV3 2-49 years (Flumist) 07/24/2014 MMR 02/01/1976 OPV, Trivalent (Orimune or [...] Screening 2019 Diabetes: HGBA1C 10/23/2022 07/23/2022, 08/27/2021 Diabetes: Creatinine 07/23/2023 07/23/2022 Diabetes: Urine Microalbumin 07/23/2023 07/23/2022 COVID-19 Vaccine ( season) 2024 11/28/2020, 11/07/2020 Influenza (#1) 2024 08/12/2018, 08/19, 07/23/2016, Additional history exists Zoster/Shingles (1 of 2) 2025 Cervical Cancer Screening 03/05/2026 03/05/2021 (Com pleted) Diabetes: Lipid Panel 07/23/2027 07/23/2022 DTaP/Tdap/Td (7 - Tdap) 03/05/2031 03/05/20 21, 03/20/2010, 03/10/1996, Additional history exists IPV (Polio) Completed 09/10/1978, 08/18, 1975, Additional history exists Cholesterol Discontinued 07/23/2022 HepA Aged Out No longer eligi ble based on patient's age to complete this topic Hib Aged Out No longer eligi ble based on patient's age to complete this topic RSV Aged Out No longer eligi ble based [...] 65(H) <30 mg/g 07/23/2022 4:17 PM CDT [facility] TechnologiesLINCOL[facility] MED[facility] CENTERTerra [facility] Albumin, Urine, Random 13.0 mg/L 07/23/2022 4:17 PM CDT [facility] [place] [facility] Creatinine, Urine, Random 20 >20 mg/dL mg/dL 07/23/2022 4:17 PM CDT [facility] Urine Non-blood Collection / Unknown 07/23/2022 11:01 AM CDT 07/23/2022 11:01 AM CDT Casi Irvin PA-C LAB_1 Performing Organization Address City/State/[facility] Co de Phone Number [facility] [address] [phone] * (ABNORMAL) Lipid Panel and Direct LDL(If Needed) (07/23/2022 10:53 AM CDT) Cholesterol 199 0 - 199 mg/dL 07/23/2022 3:59 PM CDT [facility] TechnologiesLINCOLN COUNTY MEDICAL CENTERT[facility] Triglyceride 297(H) <=149 mg/dL 07/23/2022 3:59 PM CDT [facility] HDL Cholesterol 33(L) >=40 mg/dL 07/23/2022 3:59 PM CDT [facility] LDL, Calculated 107 <130 mg/dL 07/23/2022 3:59 PM CDT [facility] Non HDL Chol, Calculated 166(H) <=159 mg/dL 07/23/2022 3:59 PM CDT [facility] Cholesterol/HDL Ratio 6.0 07/23/2022 3:59 PM CDT [facility] Hours Fasting N/A 07/23/2022 3:59 PM CDT [facility] Blood Venipuncture / Unknown 07/23/2022 10:53 AM CDT 07/23/2022 10:53 AM CDT Casi Irvin PA-C LAB_1 [facility] [address] [address] [phone] [facility] [address] [place] [address], [facility] [phone] * (ABNORMAL) Basic Metabolic Panel (07/23/2022 10:53 AM CDT) Sodium 140 136 - 145 mmol/L 07/23/2022 3:59 PM CDT [facility] Potassium 4.4 3.5 - 5.1 mmol/L 07/23/2022 3:59 PM CDT [facility] Chloride 102 98 - 109 mmol/L 07/23/2022 3:59 PM CDT [facility] CO2 27 20 - 29 mmol/L 07/23/2022 3:59 PM CDT [facility] Anion Gap 11 7 - 16 mmol/L 07/23/2022 3:59 PM CDT [facility] Calcium 9.6 8.4 - 10.4 mg/dL 07/23/2022 3:59 PM CDT [facility] BUN 6(L) 7 - 26 mg/dL 07/23/2022 3:59 PM CDT [facility] Creatinine 0.56 0.55 - 1.02 mg/dL 07/23/2022 3:59 PM CDT [facility] GFR, Estimated >60 >60 mL/min/1. 73m2 07/23/2022 3:59 PM CDT [facility] Glucose 138(H) 70 - 100 mg/dL 07/23/2022 3:59 PM CDT [facility] Comment:The given reference range is for the fasting state. Non-fasting reference range for glucose is 70 - 180 mg/dL. Hours Fasting N/A 07/23/2022 3:59 PM CDT [facility] Blood Venipuncture / Unknown 07/23/2022 10:53 AM CDT 07/23/2022 10:53 AM CDT Casi Irvin PA-C LAB_1 Performing Organization Address [facility] Co de Phone Number [facility] [address] [place] [address], [facility] [phone] [facility] [address] [place] [address], [facility] [phone] * (ABNORMAL) Hgb A1C (07/23/2022 10:53 AM CDT) Hemoglobin A1C 9.4(H) <=5.6 % 07/23/2022 4:14 PM CDT [facility] Blood Venipuncture / Unknown 07/23/2022 10:53 AM CDT 07/23/2022 10:53 AM CDT Narrative [facility] - 07/23/2022 4:14 PM CDT For patients not previously diagnosed with diabetes: 5.7-6.4%: Increased risk for diabetes 6.5% and greater: Diagnostic for diabetes For patients diagnosed with diabetes: <8.0%: Goal of therapy for ages 18-75 Clinicians may recommend a higher or lower goal for specific individuals. Casi Irvin PA-C LAB_1 Performing Organization Address [facility] Co de Phone Number [facility] [address] [place] [address], [facility] [phone] from Last 3 Months or Most Recently Relevant to Health Maintenance
--- OUTSIDE RECORDS SUMMARY | 2024-08-07 11:16 | XMS_ITS | Clinical Summary ---
Author Organization [facility] Address [place], [place] [address] Care Team Providers Care Manufacturing Worker Name Role Phone Pcp, No Primary Care [...] 09/27/2012 12/26/2012 [facility] CONTRACT 11/03/2010 011 Overview (11/03/2010): This patient, PCP and Care Guide have signed a letter agreeing on a set of goals for diabetes, hypertension and/or CHF. Please look for [facility] Care Goal Contract in Chart Review/ Letters and support this effort. Please direct questions to Care Guide Reyna Mendoza Phone number [phone] Hypothyroidism 10/14/2006 01/20/2016 Type 2 Diabetes A1C < 7.5 09/18/2002 Immunizations Name Administration Dates Next Due AMB Influenza, IIV3 (Age >=3 years)(Flu Clinic Only) 07/26/2009 COVID-19 vaccine (LoiLo 30mcg/0.3mL) PF, MDV 11/28/2020,11/07/2020 DTP 09/10/1978, 5,1975,1974 [...] Outcome GA Total Labor Labor/2nd/3rd Weight Sex Type Anes PTL Soheila A1 A5 Name Clin Para Para Comments:System Genera natasha. Please review and update details. 1997 SAB 4w0 d SPONTA NEOUS Decea sed 2000 SAB 6w0 d SPONTA NEOUS Decea sed 2002 Term 38w 0d 3.32 kg (7 lb 5 oz) M Vag Epidur al Livin g Fran [place] Delivery Location:[facility] 2004 Term 39w 0d 3.54 kg (7 lb 13 oz) M Vag Epidur al Livin g 9 9 Ap Mc[place] Delivery Location:[facility] 2007 Term 38w 0d 3.74 kg (8 lb 4 oz) M VAGINA L VACU Epidur al Livin g 4 9 Mc[place] Delivery Location:[facility] 2009 AB 6w0 d Last Filed Vital Signs Vital Sign Reading Time Taken Comments Blood Pressure 130/83 08/27/2021 1:23 PM STAVE LOG CUT OFF SAW OPERATOR Pulse 68 08/27/2021 1:23 PM STAVE LOG CUT OFF SAW OPERATOR Temperature 37.2 ??C (99 ??F) 07/08/2020 2:26 PM CDT Respiratory Rate 20 04/05/2019 5:49 PM CDT Oxygen Saturation 98% 08/27/2021 1:23 PM STAVE LOG CUT OFF SAW OPERATOR Inhaled Oxygen Concentration - - Weight 83 kg (183 lb) 08/27/2021 1:23 PM STAVE LOG CUT OFF SAW OPERATOR Height 157.5 cm (5' 2) 07/08/2020 2:26 PM CDT Body Mass Index 33.47 07/08/2020 2:26 PM CDT Plan of Treatment Health Maintenance Due Date Last Done Comments Colonoscopy through age 75 02/29/2020 BMI (ht and wt on same day) for age 18+ 07/08/2021 07/08/2020, 04/17/2020, 08/31/2019, Additional history exists Mammogram for age 45-75 08/20/2022 08/20/20 21, 05/31/2019, 03/22/2017, Additional history exists Depression screening for age 12+ 08/28/2022 08/28/2021, 08/27/2021, 09/25/2020, Additional history exists Lipids for age 45-75 01/19/2024 01/18/2019, 01/18/2019, 05/20/2018, Additional history exists COVID-19 vaccine series ( season) 2024 11/28/2020, 11/07/2020 Influenza for age 9-49 06/18/2024 8, 09/06/2017, [...] 11:20 AM CDT Visit for screening mammogram AUTOMATIC MACHINES SUPERVISOR THIN PREP PAP SCREEN IMAGED Routine 03/05/2021 11:34 AM CDT Screening for cervical cancer LIPID PANEL W REFLEX MEASURED LDL Add On 01/18/2019 11:19 AM CDT Dyslipidemia ANTI HCV Routine 11/03/2013 12:33 PM STAVE LOG CUT OFF SAW OPERATOR Elevated LFTs ANTI HIV 1/2 Routine 10/20/2007 2:07 PM STAVE LOG CUT OFF SAW OPERATOR Supervision Of Other Normal from Last 3 [...] Dictated by: Matt Wilks MD @08/21/2021 2:14:15 PM/CRL:chiquitat PATIENTS: You will also receive a letter [...] suspicious findings. Oliva Ca MD MAMMO * AUTOMATIC MACHINES SUPERVISOR THIN PREP PAP SCREEN IMAGED [[id number]] (03/05/2021 11:34 AM CDT) Case Report Gynecologic Cytology Report ? Case: [id number] ? Authorizing Provider: ??Oliva Ca MD ? Collected: ? 03/05/2021 1134 ? Ordering Location: ? [facility] ?? Received: ?03/05/2021 1244 ? Clinic ? [facility] Screen: ?Ashleigh Bradley ? Specimen: ?AUTOMATIC MACHINES SUPERVISOR ThinPrep Vial Screening, Cervical ? 03/14/2021 11:00 AM CDT [facility] INTERPRETATION/ RESULT NEGATIVE FOR INTRAEPITHELIAL LESION OR MALIGNANCY (NIL) (none) 03/14/2021 11:00 AM CDT [facility] ENTRAL LABORAT[facility] NISM(S) Fungal organisms morphologically consistent with Марина species 03/14/2021 11:00 AM CDT [facility] SPECIMEN ADEQUACY Satisfactory for evaluation Endocervical component present 03/14/2021 11:00 AM CDT [facility]-C ENTRAL LABORATORY HPV REQUEST HPV and PAP 03/14/2021 11:00 AM CDT [facility] Date of LMP 11/08/2020 03/14/2021 11:00 AM CDT [facility] EN[facility]AL LABOR[facility] Last Pap Date 2013 03/14/2021 11:00 AM CDT [facility] EN[facility] Last Pap Result NIL 11:00 AM CDT [facility] ENTRAL LABORATORY Abnormal Pap or [place] Bx in last 5 years No 03/14/2021 11:00 AM CDT [facility] ENTRAL LABORATORY Menstrual Status Regular Periods 03/14/2021 11:00 AM CDT [facility] ENTRAL LAB[facility]ATORY [place] Bx Done Today No 03/14/2021 11:00 AM CDT [facility]-C ENTRAL LABORATORY Additional Information None given 03/14/2021 11:00 AM CDT [facility] [facility] EN[facility]AL LABORATORY Comment: Cytology is screened at [facility] - [address], [place] [address] and [facility] - [address], [place] [address] and [facility] - [address] [place] [address] Interpreted at [facility] - [address], [place] [address] Automated Review Successful 03/14/2021 11:00 AM CDT [facility] Comment:Specimen processed s uccessfully by automated yarn man device, ThinPrep Imaging System, [employer] ANCILLARY TESTING AUTOMATIC MACHINES SUPERVISOR HPV Ordered, Please see separate report 03/14/2021 11:00 AM CDT [facility] Note The pap test is [...] pre-malignant and malignant lesions. 03/14/2021 11:00 AM T [facility] Other (Cervical) Non-Blood / Unknown 03/05/2021 11:34 AM CDT 03/05/2021 12:44 PM CDT Oliva Ca MD PATHOLOGY/CYTOLOGY [facility] [address] [place] [address], [place] * (ABNORMAL) LIPID PANEL W REFLEX MEASURED LDL (01/18/2019 11:19 AM CDT) CHOLESTEROL,TOTAL 188 100 - 199 mg/dL 01/18/2019 5:31 PM CDT [facility] TRAL LABORATORY TRIGLYCERIDES 423(H) <150 mg/dL 01/18/2019 5:31 PM CDT [facility] TRAL LAB[facility] HDL CHOLESTEROL 28(L) >40 mg/dL 9 5:31 PM CDT [facility] NON-HDL CHOLESTEROL 160(H) <145 mg/dl 01/18/2019 5:31 PM CDT [facility] CHOL/HDL RATIO 6.71(H) <4.50 01/18/2019 5:31 PM CDT [facility] TR[facility] LAB[facility] LDL CHOLESTEROL 9 5:31 PM CDT [facility] Comment:Invalid LDL when Tri g >400, reflexed to measured LDL PROVIDER ORDERED STATUS RANDOM 01/18/2019 5:31 PM CDT [facility] TR[facility] Blood BLOOD SPECIMEN / Unknown Venipuncture / Unknown 01/18/2019 11:19 AM CDT 01/18/2019 11:19 AM CDT [facility] [address] [place] [address], * ANTI HCV (11/03/2013 12:33 PM STAVE LOG CUT OFF SAW OPERATOR) ANTI HCV Non-reacti ve [facility] Blood specimen (specimen) BLOOD SPECIMEN / Unknown 11/03/2013 12:33 PM STAVE LOG CUT OFF SAW OPERATOR 11/03/2013 12:13 PM STAVE LOG CUT OFF SAW OPERATOR Karen [facility] [place]NAL ZIP [id number] [place] [address] * ANTI HIV 1/2 (10/20/2007 2:07 PM STAVE LOG CUT OFF SAW OPERATOR) ANTI HIV 1/2 Non-reacti ve [facility] Blood specimen (specimen) BLOOD SPECIMEN / Unknown 10/20/2007 2:07 PM STAVE LOG CUT OFF SAW OPERATOR 10/20/2007 1:59 PM STAVE LOG CUT OFF SAW OPERATOR Matt Barroso MD [facility] [place]IP [address] [address] [place] [address] from Last 3 Months or Most Recently Relevant to Health Maintenance Care Teams Manufacturing Worker Relationship Specialty Start Date End Date Pcp, No . PCP - General 10/02/21
== END 2024-08-07 11:13 | disposition home or self-care (01) ==
PROVIDERS: PCP Family Medicine; Visit Provider Family Medicine
DX: E11.9 Type 2 diabetes mellitus without complications (principal); I10 Essential (primary) hypertension; E78.2 Mixed hyperlipidemia; Z79.4 Long term (current) use of insulin; Z13.9 Encounter for screening, unspecified
CPT/HCPCS: 80048; 80061; 85025

== ENCOUNTER 2024-10-06 08:28 | Emergency (ER) | payer BC, SELFPAY ==
[2024-10-06 08:33] VITALS: BP 158/87; PULSE 72; RESP 18; TEMP 36.4; O2SAT 100; BMI 33.2
--- NOTE | 2024-10-06 08:36 | ED_ITS ---
HPI - Female Genitourinary General Time Seen by Provider: 08:36 Date Seen: 10/06/24 Chief complaint: Urogenital Problems, Female Stated complaint: Likely UTI Time Seen by Provider: 10/06/24 08:36 Source: patient, RN notes reviewed and old records reviewed Mode of arrival: ambulatory Limitations: no limitations History of Present Illness HPI Narrative: 49-year-old female who presents today with painful urination and frequency starting yesterday. No abdominal pain, no flank pain, no fever, no nausea nor vomiting. Related Data Home Medications ?Medication ?Instructions ?Recorded ?Confirmed aspirin 81 mg tablet,delayed 81 mg PO QDAY 11/09/22 08/07/24 release blood sugar diagnostic (Contour #10 ea 08/09/23 08/07/24 Next Test Strips) cranberry 500 mg capsule 500 mg PO QDAY 08/07/24 08/07/24 Previous Rx's ?Medication ?Instructions ?Recorded semaglutide 0.25 mg or 0.5 mg (2 0.25 mg (0.368 mL) subcut QWEEK #3 08/10/23 mg/3 mL) subcutaneous pen injector mL (Ozempic) epinephrine 0.3 mg/0.3 mL 0.3 ml IM ONCE #2 ea 08/19/23 injection, auto-injector bupropion HCl 300 mg 24 hr tablet, 300 mg PO QDAY #90 tabs 02/11/24 extended release metformin 500 mg tablet,extended 1,000 mg (2 x 500 mg) PO BID #360 02/11/24 release 24 hr tabs metoprolol succinate 100 mg 100 mg PO QDAY #90 tabs 02/11/24 tablet,extended release 24 hr omeprazole 20 mg capsule,delayed 20 mg PO QDAY #90 caps 02/11/24 release levothyroxine 137 mcg tablet 137 mcg PO QDAY #90 tabs 02/18/24 insulin degludec 200 unit/mL (3 100 unit (0.5 mL) subcut QDAY #45 07/12/24 mL) subcutaneous pen (Tresiba mL FlexTouch U-200 insulin) blood-glucose sensor (Uniregistry G7 #2 ea 08/07/24 Sensor device) insulin aspart U-100 100 unit/mL 40 - 44 unit (0.4 - 0.44 mL) 09/08/24 (3 mL) subcutaneous pen (Novolog subcut TID #15 mL FlexPen U-100 Insulin aspart) fenofibrate 160 mg tablet 160 mg PO QDAY #90 tabs 09/18/24 ciprofloxacin HCl 500 mg tablet 500 mg PO BID #14 tabs 10/06/24 phenazopyridine 200 mg tablet 200 mg PO TID 6 doses #6 tabs 10/06/24 (Pyridium) Allergies Allergy/AdvReac Type Severity Reaction Status Date / Time azithromycin Allergy Mild Unknown Verified 08/07/24 09:12 Cephalosporins Allergy Mild Unknown Verified 08/07/24 09:12 nitrofurantoin (From Allergy Mild Unknown Verified 08/07/24 09:12 Macrobid) Penicillins Allergy Mild Unknown Verified 08/07/24 09:12 Sulfa (Sulfonamide Allergy Hives Verified 08/07/24 09:12 Antibiotics) [facility] Medical History (Updated 10/06/24 @ 08:49 by Earl Daniels MD) GERD (gastroesophageal reflux disease) ?K21.9 - Gastro-esophageal reflux disease without esophagitis (ICD-10) Primary hypertension ?I10 - Essential (primary) hypertension (ICD-10) Mixed hyperlipidemia ?E78.2 - Mixed hyperlipidemia (ICD-10) Type 2 diabetes mellitus, with long-term current use of insulin ?E11.9 - Type 2 diabetes mellitus without complications (ICD-10) ?Z79.4 - intermediate card tender (current) use of insulin (ICD-10) History of vitamin D deficiency ?Z86.39 - Personal history of other endocrine, nutritional and metabolic disease (ICD-10) Vitamin D deficiency ?E55.9 - Vitamin D deficiency, unspecified (ICD-10) Hypothyroidism ?E03.9 - Hypothyroidism, unspecified (ICD-10) Polycystic ovarian syndrome ?E28.2 - Polycystic ovarian syndrome (ICD-10) Bipolar 1 disorder ?F31.9 - Bipolar disorder, unspecified (ICD-10) Family History (Updated 03/01/23 @ 11:53 by Paulina Tate ~ PSR) Father Heart disease Diabetes Grandmother Lung cancer Social History (Updated 08/07/24 @ 12:08 by Nette Chisholm ~ RMA, RMA) 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: , 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, 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 Social EtOH What is your current living situation?: I presently have a place to live Problems where you live: no known problems In the past 12 months, utilities in danger of being shut off: no In past 12 months, lack of transportation kept you from medical appts, meetings, work, or getting things needed for daily living: no In the past 12 mos, have been you worried that your food would run out before you had money to buy more?: never true In the past 12 mos, the food you bought just didn't last and you didn't have money to buy more?: never true Smoking Status: Former smoker Do you use any of these nicotine containing products: None Second hand tobacco smoke exposure: No How often do you have a drink containing alcohol: never How often do you have six or more drinks on one occasion: Never AUDIT-C Alcohol total score: 0 Non-prescribed substance use: denies use How often does anyone, including family, friends and others, physically hurt you : never How often does anyone, including family, friends and others, insult or talk down to you: rarely How often does anyone, including family, friends and others, threaten you with harm: never How often does anyone, including family, friends and others, scream or curse at you: never service: No Health Related Social Needs: Other personal risk factors, not elsewhere classified (Z91.89) Exam Narrative: Exam Narrative: General: Well-developed and well-nourished, no acute distress Head: Atraumatic and normocephalic Eyes: Pupils are equal reactive, extraocular motions intact, conjunctiva clear ENT: External nose and ears are normal, posterior pharynx without erythema or exudate Neck: No midline cervical tenderness, full spontaneous range of motion the neck, trachea midline, no adenopathy Heart: Regular rate and rhythm no murmurs or thrills Lungs: Clear to auscultation bilaterally without wheezes or crackles Abdomen: Soft, nontender, nondistended with active bowel sounds Musculoskeletal: No tenderness, deformity, or edema Neurologic: Awake, alert, and oriented x3, no gross focal neurologic deficits, cranial nerves intact as tested Psych: Mood and affect are appropriate Skin: No rashes Const: Vital Signs, click to edit/add: Vital Signs - 24 hr 10/06/24 08:33 Temperature 97.6 F Pulse Rate [Pulse Oximeter] 72 Respiratory Rate 18 Blood Pressure [Le ft Upper Arm] 158/87 H Pulse Oximetry 100 Oxygen Delivery thod Room Air Course Course ED Course: Reviewed prior emergency department visit from December 2023 which also was for urinary symptoms and patient found have urinary tract infection. Reviewed urine culture results from December 2023 which showed pansensitive Proteus resistant only to nitrofurantoin. Patient presents today with urinary frequency and some dysuria, history of urinary tract infections. No systemic signs of infection, flank pain, or abdominal pain to suggest pyelonephritis or kidney stone. Urinalysis independently interpreted by me nitrite positive with leukocyte esterase consistent with urinary tract infection. Patient will be started on ciprofloxacin due to multiple antibiotic allergies. Vital Signs Vital signs: Initial Vital Signs Temperature 97.6 F 10/06/24 08:33 Temperature Source Temporal Artery Scan 10/06/24 08:33 Pulse Rate 72 10/06/24 08:33 Pulse Rhythm Regular 10/06/24 08:33 Respiratory Rate 18 10/06/24 08:33 Blood Pressure 158/87 H 10/06/24 08:33 Blood Pressure Mean 110 H 10/06/24 08:33 Blood Pressure Position Sitting 10/06/24 08:33 Pulse Oximetry 100 10/06/24 08:33 Oxygen Delivery Method Room Air 10/06/24 08:33 Vital Signs Temperature 97.6 F 10/06/24 08:33 Pulse Rate 72 10/06/24 08:33 Respiratory Rate 18 10/06/24 08:33 Blood Pressure 158/87 H 10/06/24 08:33 Pulse Oximetry 100 10/06/24 08:33 Oxygen Delivery Method Room Air 10/06/24 08:33 Temperature 97.6 F 10/06/24 08:33 Pulse Rate 72 10/06/24 08:33 Respiratory Rate 18 10/06/24 08:33 Blood Pressure 158/87 H 10/06/24 08:33 Pulse Oximetry 100 10/06/24 08:33 Oxygen Delivery Method Room Air 10/06/24 08:33 MDM - Female Genitourinary Lab Data Labs: Lab Results 10/06/24 Range/Units 08:31 Urine Color Yellow (Yellow) Urine Appearance Cloudy A (Clear) Urine pH 6.0 (5.0-8.5) Ur Specific Alsey 1.010 (1.000-1.030) Urine Protein Negative (Negative) Urine Glucose (UA) Negative (Negative) Urine Ketones Negative (Negative) Urine Blood 3+ A (Negative) Urine Nitrite Positive A (Negative) Urine Bilirubin Negative (Negative) Urine Urobilinogen 0.2 (0.2-1.0) Ur Leukocyte Esterase 3+ A (Negative) Discharge Plan Discharge Clinical Impression: Urinary tract infection Patient Disposition: Home, Self-Care Condition: Stable Instructions: Urinary Tract Infection in Women (ED) Activity Level: No Restrictions Discharge Diet: Regular Prescriptions: New ciprofloxacin HCl 500 mg tablet 500 mg PO BID Qty: 14 0RF phenazopyridine [Pyridium] 200 mg tablet 200 mg PO TID Qty: 6 0RF No Action bupropion HCl 300 mg tablet extended release 24 hr 300 mg PO QDAY Qty: 90 1RF omeprazole 20 mg capsule,delayed release(DR/EC) 20 mg PO QDAY Qty: 90 1RF metoprolol succinate 100 mg tablet extended release 24 hr 100 mg PO QDAY Qty: 90 1RF metformin 500 mg tablet extended release 24 hr 1,000 mg PO BID Qty: 360 1RF cranberry 500 mg capsule 500 mg PO QDAY Rx Instructions: administer with meals (DME) Dexcom G7 Sensor Device See Rx Instructions .Route Qty: 2 5RF Rx Instructions: As directed aspirin 81 mg tablet,delayed release (DR/EC) 81 mg PO QDAY (DME) Contour Next Test Strips Strip See Rx Instructions .ROUTE .MEDSUPPLY Qty: 10 Rx Instructions: As directed Ozempic 0.25 mg or 0.5 mg (2 mg/3 mL) pen injector 0.25 mg subcut QWEEK Qty: 3 1RF Rx Instructions: for 4 weeks then increase to 0.5 mg weekly epinephrine 0.3 mg/0.3 mL auto-injector 0.3 ml IM ONCE Qty: 2 2RF Rx Instructions: as a single dose; may repeat once levothyroxine 137 mcg tablet 137 mcg PO QDAY Qty: 90 3RF insulin degludec [Tresiba FlexTouch U-200] 200 unit/mL (3 mL) insulin pen 100 unit subcut QDAY Qty: 45 1RF Rx Instructions: Please dispense covered brand per insurance. insulin aspart U-100 [Novolog FlexPen U-100 Insulin] 100 unit/mL (3 mL) insulin pen 40 - 44 unit subcut TID Qty: 15 2RF fenofibrate 160 mg tablet 160 mg PO QDAY Qty: 90 1RF Follow Up/Referrals: Matt Barroso MD [Primary Care Provider] - Stand Alone Forms: [employer] Info Instructions
[2024-10-06 08:42] LABS: Appearance Urine Cloudy (Clear); Bilirubin Urine Negative (Negative); Blood Urine 3+ (Negative); Color Urine Yellow (Yellow); Glucose Urine Negative (Negative); Ketones Urine Negative (Negative); Leukocyte Esterase Urine 3+ (Negative); Nitrite Urine Positive (Negative); Protein Urine Negative (Negative); Urobilinogen Urine 0.2 (0.2-1.0)
[2024-10-06 08:57] LABS: Bacteria Urine Many; Squamous Epithelial Cell Urine Few (None-Few); WBC Urine >100 (0-5)
[2024-10-06 09:07] VITALS: BP 158/87; PULSE 72; RESP 18; TEMP 36.4
== END 2024-10-06 09:08 | disposition home or self-care (01) ==
LOC: ED 08:52
PROVIDERS: Emergency Provider Family Medicine; PCP Family Medicine
DX: N39.0 Urinary tract infection, site not specified (principal)
CPT/HCPCS: 81001; 87086; 87186; 99283; 99284

== ENCOUNTER 2025-03-29 12:49 | Outpatient (CLI) | payer BC, SELFPAY ==
--- NOTE | 2025-03-29 13:00 | CRLHL7_ITS ---
For Patients: As a result of the Century Cures Act, medical imaging exams and procedure reports are released immediately into your electronic medical record. You may view this report before your referring provider. If you have questions, please contact your health care provider. INDICATION: BILATERAL SCREENING MAMMOGRAM, ASYMPTOMATIC 50 Y/O FEMALE COMPARISON: 05/13/2023, 08/20/2021, 05/31/2019 TECHNIQUE: Digital mammogram in CC and MLO projections including computer-aided detection (CAD) and tomosynthesis. BREAST COMPOSITION: There are scattered areas of fibroglandular density. FINDINGS: No suspicious findings. ASSESSMENT: BI-RADS 2 Benign RECOMMENDATION: Annual screening mammogram. A lay language report of this examination will be provided to the patient. Dictated by: Matt Wilks MD @ 03/30/2025 09:44:36 (Electronically Signed)
== END 2025-03-29 12:50 | disposition home or self-care (01) ==
LOC: MAMMO 12:50
PROVIDERS: PCP Family Medicine; Visit Provider Family Medicine
DX: Z12.31 Encounter for screening mammogram for malignant neoplasm of breast (principal)
CPT/HCPCS: 77063; 77067

== ENCOUNTER 2025-04-09 15:05 | Outpatient (CLI) | payer BC, SELFPAY | END 2025-04-09 15:06 | disposition home or self-care (01) | LOC: NFLDREF 04-11 03:34 | PROVIDERS: PCP Family Medicine; Referring Provider Family Medicine; Visit Provider Family Medicine | DX: N39.0 Urinary tract infection, site not specified (principal) | CPT/HCPCS: 87086 ==

== ENCOUNTER 2025-06-05 09:27 | Outpatient (CLI) | payer BC, SELFPAY | END 2025-06-05 09:28 | disposition home or self-care (01) | PROVIDERS: PCP Family Medicine; Visit Provider Family Medicine | DX: E03.9 Hypothyroidism, unspecified (principal); E78.2 Mixed hyperlipidemia; I10 Essential (primary) hypertension | CPT/HCPCS: 80048; 80061; 84439; 84443; 84460 ==

== ENCOUNTER 2025-07-18 19:39 | Emergency (ER) | payer BC, SELFPAY ==
[2025-07-18] VITALS (16 sets, daily range): BP systolic 147–208; BP diastolic 82–117; PULSE 73–77; RESP 5–45; TEMP 36.4–36.8; O2SAT 93–100; BMI 31.6
--- NOTE | 2025-07-18 20:10 | ED.GENADULT ---
HPI - General Adult General Chief complaint: Weakness Stated complaint: unable to walk on own Time Seen by Provider: 07/18/25 20:10 History of Present Illness HPI narrative: Pt states at 1800 today she felt dizzy and weak and had trouble ambulating. Pt has a headache on right side of her head. Pt feels like a heavy weight on her head, pulling her head down. Stroke code activated in triage can I go to see Britany in room 8 as we are initiating IV placement and completing triage. 50-year-old woman presenting to the emergency department with concern of discoordination and some headache. She was standing in the kitchen talking by with urine have for dinner about 2 hours prior to presentation 6:00 p.m. this evening and started to feel like there is a weight on her left side of her head just kind of pulling her down. She also developed a headache on the right side of her head. She did go lay down and symptoms have continued even when she gets up. Subsequently somewhat discoordinated her stumbling about when trying to walk. No actual dizziness. No fever or cough or cold symptoms noted. No pain other than headache as mentioned. History of diabetes. Does smoke occasionally. Over the last couple of days does find herself being somewhat forgetful Feels generally quite weak Triage is completed in cardiac room after stroke code initiated. Blood pressure initially 208/117 Related Data Home Medications ?Medication ?Instructions ?Recorded ?Confirmed aspirin 81 mg tablet,delayed 81 mg PO QDAY 11/09/22 06/05/25 release blood sugar diagnostic (Contour #10 ea 08/09/23 06/05/25 Next Test Strips) cranberry 500 mg capsule 500 mg PO QDAY 08/07/24 06/05/25 Previous Rx's ?Medication ?Instructions ?Recorded omeprazole 20 mg capsule,delayed 20 mg PO QDAY #90 caps 02/11/24 release bupropion HCl 300 mg 24 hr tablet, 300 mg PO QDAY #90 tabs 12/01/24 extended release epinephrine 0.3 mg/0.3 mL 0.3 ml IM ONCE #2 ea 12/01/24 injection, auto-injector blood-glucose sensor (Dexcom G7 #2 ea 12/11/24 Sensor device) insulin aspart U-100 100 unit/mL 15 unit (0.15 mL) subcut TID #60 mL 03/09/25 (3 mL) subcutaneous pen (Novolog FlexPen U-100 Insulin aspart) fenofibrate 160 mg tablet 160 mg PO QDAY #90 tabs 03/14/25 metoprolol succinate 100 mg 100 mg PO QDAY #90 tabs 03/27/25 tablet,extended release 24 hr metformin 500 mg tablet,extended 1,000 mg (2 x 500 mg) PO BID #360 04/18/25 release 24 hr tabs levothyroxine 137 mcg tablet 137 mcg PO QDAY #90 tabs 04/25/25 insulin degludec 200 unit/mL (3 70 unit (0.35 mL) subcut QDAY #45 04/27/25 mL) subcutaneous pen (Tresiba mL FlexTouch U-200 insulin) tirzepatide 7.5 mg/0.5 mL 7.5 mg (0.5 mL) subcut QWEEK #2 mL 06/05/25 subcutaneous pen injector Allergies Allergy/AdvReac Type Severity Reaction Status Date / Time azithromycin Allergy Mild Unknown Verified 07/18/25 20:30 Cephalosporins Allergy Mild Unknown Verified 07/18/25 20:30 nitrofurantoin (From Allergy Mild Unknown Verified 07/18/25 20:30 Macrobid) Penicillins Allergy Mild Unknown Verified 07/18/25 20:30 Sulfa (Sulfonamide Allergy Hives Verified 07/18/25 20:30 Antibiotics) Review of Systems Status of ROS: Reports: 6 or more systems reviewed and unremarkable except as noted in History and below [facility] Medical History GERD (gastroesophageal reflux disease) ?K21.9 - Gastro-esophageal reflux disease without esophagitis (ICD-10) Primary hypertension ?I10 - Essential (primary) hypertension (ICD-10) Mixed hyperlipidemia ?E78.2 - Mixed hyperlipidemia (ICD-10) Type 2 diabetes mellitus, with long-term current use of insulin ?E11.9 - Type 2 diabetes mellitus without complications (ICD-10) ?Z79.4 - termite helper (current) use of insulin (ICD-10) History of vitamin D deficiency ?Z86.39 - Personal history of other endocrine, nutritional and metabolic disease (ICD-10) Vitamin D deficiency ?E55.9 - Vitamin D deficiency, unspecified (ICD-10) Hypothyroidism ?E03.9 - Hypothyroidism, unspecified (ICD-10) Polycystic ovarian syndrome ?E28.2 - Polycystic ovarian syndrome (ICD-10) Bipolar 1 disorder ?F31.9 - Bipolar disorder, unspecified (ICD-10) Family History Father Heart disease Diabetes Grandmother Lung cancer 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: , 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, [employer]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 Social EtOH What is your current living situation?: I presently have a place to live Problems where you live: no known problems In the past 12 months, utilities in danger of being shut off: no In past 12 months, lack of transportation kept you from medical appts, meetings, work, or getting things needed for daily living: no In the past 12 mos, have been you worried that your food would run out before you had money to buy more?: never true In the past 12 mos, the food you bought just didn't last and you didn't have money to buy more?: never true Smoking Status: Former smoker Do you use any of these nicotine containing products: None Second hand tobacco smoke exposure: No How often do you have a drink containing alcohol: never How often do you have six or more drinks on one occasion: Never AUDIT-C Alcohol total score: 0 Non-prescribed substance use: denies use How often does anyone, including family, friends and others, physically hurt you: never How often does anyone, including family, friends and others, insult or talk down to you: rarely How often does anyone, including family, friends and others, threaten you with harm: never How often does anyone, including family, friends and others, scream or curse at you: never service: No Health Related Social Needs: Other personal risk factors, not elsewhere classified (Z91.89) Exam Narrative: Exam Narrative: Pleasant. NAD. Does seem to be fatigued. Breathing easily. Lungs are clear. Heart in regular rate and rhythm without murmur rub or gallop. Cranial nerves 2-12 to be intact. Pupils are 3 mm equal. Head is atraumatic. Abdomen soft. Noted to have drift of the left arm in triage. This is not occurring during initial exam in the room however I would appreciate her left arm to be a little weak. Drops to the bed after I let go of exam. I note this though similar in the right arm later perhaps not quite as much. Speech is fluid. Extremities are well perfused without edema. Const: Vital Signs, click to edit/add: Vital Signs - 24 hr 07/18/25 20:10 Temperature 97.6 F Pulse Rate [Right Pulse Oximeter] 73 Respiratory Rate 16 Blood Pressure [Ri ght Upper Arm] 208/117 H Pulse Oximetry 98 Oxygen Delivery Me thod Room Air Documenting provider has reviewed patient's vital signs: yes Course Vital Signs Vital signs: Initial Vital Signs Temperature 97.6 F 07/18/25 20:10 Temperature Source Temporal Artery Scan 07/18/25 20:10 Pulse Rate 73 07/18/25 20:10 Pulse Rhythm Regular 07/18/25 20:10 Pulse Strength 3+ Normal 07/18/25 20:10 Respiratory Rate 16 07/18/25 20:10 Blood Pressure 208/117 H 07/18/25 20:10 Blood Pressure Mean 147 H 07/18/25 20:10 Blood Pressure Position Sitting 07/18/25 20:10 Pulse Oximetry 98 07/18/25 20:10 Oxygen Delivery Method Room Air 07/18/25 20:10 Vital Signs Temperature 97.6 F 07/18/25 20:10 Pulse Rate 73 07/18/25 20:10 Respiratory Rate 16 07/18/25 20:10 Blood Pressure 208/117 H 07/18/25 20:10 Pulse Oximetry 98 07/18/25 20:10 Oxygen Delivery Method Room Air 07/18/25 20:10 Temperature 97.6 F 07/18/25 20:10 Pulse Rate 73 07/18/25 20:10 Respiratory Rate 16 07/18/25 20:10 Blood Pressure 208/117 H 07/18/25 20:10 Pulse Oximetry 98 07/18/25 20:10 Oxygen Delivery Method Room Air 07/18/25 20:10 Medical Decision Making MDM Narrative Medical decision making narrative: Seems atypical for infection. Certainly CVA's in differential. Possible arrhythmia though does not auscultate as such and on compliance monitor does not appear to be so. Would placed on compliance monitor. Will be going, after placement of IV directly for CT images of the head and neck with and without contrast. Stroke code was activated as noted and spoke shortly after exam with Stroke Neuro. Would estimate NIHSS between 1 and 2 perhaps. Further risk given history of diabetes CT head independently reviewed by me is without evidence of a bleed. Further imaging discussed with stroke neuro is absent any large vessel occlusion. Concerns though given discoordination with dominant side and abruptness of onset. Recommendations are to initiate thrombo lytic. In anticipation of this will need to lower blood pressure. Written for labetalol and then subsequently nicardipine drip. Spoke with hospitalist for admission at [place]. Anticipating transport shortly to [place] the ambulance. Medical Records Medical records reviewed: Yes I reviewed the patient's medical records Lab Data Lab results reviewed: Yes I reviewed the patient's lab results Labs: Lab Results 07/18/25 Range/Units 20:10 WBC 5.63 (4.50-11.00) K/uL RBC 4.73 (4.00-5.20) m/uL Hgb 15.5 (12.0-16.0) gm/dL Hct 43.0 (33.0-51.0) % MCV 91 (80-100) fL MCH 33 (26-34) pg MCHC 36 (32-36) gm/dL RDW Coeff of Marjan 11.3 L (11.5-15.5) % Plt Count 278 (140-440) K/uL Neut % (Auto) 56.3 (42.0-72.0) % Lymph % (Auto) 33.9 (20-44) % [place] % (Auto) 7.6 (0.0-11.0) % Eos % (Auto) 1.8 (0.0-7.0) % Baso % (Auto) 0.2 (0.0-3.0) % Neut # (Auto) 3.17 (1.7-7.0) K/uL Lymph # (Auto) 1.91 (0.90-2.90) K/uL [place] # (Auto) 0.40 (0.00-0.90) K/UL Eos # (Auto) 0.10 (0.00-0.50) K/uL Baso # (Auto) 0.01 (0.00-0.30) K/uL Abs Immat Gran (auto) 0.01 (0.00-0.30) K/uL Imm/Tot Granulo (auto) 0.2 % INR 0.99 (0.91-1.10) APTT 27 (23-33) Seconds Sodium 137 (135-149) mmol/L Potassium 4.7 (3.6-5.1) mmol/L Chloride 98 (96-114) mmol/L Carbon Dioxide 30 (20-32) mmol/L Anion Gap 9 (7-15) mEq/L BUN 10 (7-30) mg/dL Creatinine 0.7 (0.5-1.5) mg/dL Estimated Creat Clear 69.06 Estimated GFR 105 ml/min Glucose 219 H (60-115) mg/dL Calcium 9.8 (8.4-10.6) mg/dL Troponin I < 0.01 (0.01-0.04) ng/mL ECG Data Attestation: I personally reviewed and interpreted this ECG as follows: (Sinus rhythm. Rate controlled. No ischemic changes.) Critical Care Time Critical Care Time Critical Care Time: Yes Attestation: The patient required my highest level preparedness to intervene emergently and I personally spent this critical care time directly and personally managing the patient. This critical care time included: Obtaining a history; Examining the patient; Pulse oximetry; Ordering and reviewing of studies; Arranging urgent treatment with development of a management plan; Evaluation of patients response to treatment; Frequent reassessment discussions with other providers. This critical care time was performed to assess and manage the high probability of imminent life-threatening deterioration that could result in multiorgan failure. It was exclusive of separate billable procedures and treating other patients and teaching time. Total Critical Care Time in Minutes: 70 Discharge Plan Discharge Clinical Impression: Discoordination, Acute CVA (cerebrovascular accident) Patient Disposition: Xfer [facility] Discharge Location: [facility] Condition: Stable Prescriptions: No Action omeprazole 20 mg capsule,delayed release(DR/EC) 20 mg PO QDAY Qty: 90 1RF cranberry 500 mg capsule 500 mg PO QDAY Rx Instructions: administer with meals aspirin 81 mg tablet,delayed release (DR/EC) 81 mg PO QDAY (DME) Contour Next Test Strips Strip See Rx Instructions .ROUTE .MEDSUPPLY Qty: 10 Rx Instructions: As directed bupropion HCl 300 mg tablet extended release 24 hr 300 mg PO QDAY Qty: 90 3RF epinephrine 0.3 mg/0.3 mL auto-injector 0.3 ml IM ONCE Qty: 2 2RF Rx Instructions: as a single dose; may repeat once insulin aspart U-100 [Novolog FlexPen U-100 Insulin] 100 unit/mL (3 mL) insulin pen 15 unit subcut TID Qty: 60 1RF tirzepatide 7.5 mg/0.5 mL pen injector 7.5 mg subcut QWEEK Qty: 2 1RF Rx Instructions: for 4 weeks (DME) [employer] G7 Sensor Device See Rx Instructions .Route Qty: 2 11RF Rx Instructions: As directed fenofibrate 160 mg tablet 160 mg PO QDAY Qty: 90 1RF metoprolol succinate 100 mg tablet extended release 24 hr 100 mg PO QDAY Qty: 90 1RF metformin 500 mg tablet extended release 24 hr 1,000 mg PO BID Qty: 360 1RF levothyroxine 137 mcg tablet 137 mcg PO QDAY Qty: 90 0RF insulin degludec [Tresiba FlexTouch U-200] 200 unit/mL (3 mL) insulin pen 70 unit subcut QDAY Qty: 45 1RF Rx Instructions: Please dispense covered brand per insurance. Stand Alone Forms: [email or web address] Info Instructions
--- NOTE | 2025-07-18 20:11 | CT_ITS ---
Patient: LISSA AVENDANO Facility:?[facility] Patient ID:?[id number] Site Patient ID:?[id number]. Site :?[id number] Study:?CT-Neck Angio Angio CODE STROKE 95CC ISOVUE 370-07/18/2025 8:29:44 PM Ordering Physician:Emigdio Gutierrez Final Report: DATE: 07/18/2025 CLINICAL HISTORY: Patient with focal neurological deficits. TECHNIQUE: Standard helical CT image acquisition through the head and neck was performed after intravenous contrast bolus enhancement. 2D and 3D MIP images for post- processing were performed and interpreted on an independent workstation and 3D images were permanently archived. COMPARISON: CT same day. FINDINGS: The origins of the great vessels from the aortic arch are patent. The origin of the right vertebral artery is patent. The origin of the left vertebral artery is patent. The common carotid arteries are patent There is no stenosis at the origin of the right internal carotid artery. There is no stenosis at the origin of the left internal carotid artery. The rest of the cervical segments of the internal carotid arteries are patent up to their intracranial segments. The intracranial segments of the internal carotid arteries are patent. The left vertebral artery is dominant. The cervical segments of the vertebral arteries are patent. The intracranial segments of the vertebral arteries are patent. The middle cerebral arteries are normal without aneurysm or proximal occlusion identified. The anterior cerebral arteries are normal without aneurysm or proximal occlusion identified. The anterior communicating artery is well visualized and appears normal. The basilar artery is normal without aneurysm or occlusion. The posterior cerebral arteries are normal without aneurysm or proximal occlusion. There is normal opacification of major intracranial venous structures. The visualized lung apices are unremarkable The thyroid gland is unremarkable. The soft tissues of the neck are unremarkable. There are degenerative changes in the cervical spine. IMPRESSION: Normal CT angiogram of the head and neck. Please note that all CT scans at this facility use dose modulation, iterative reconstruction, and/or weight-based dosing when appropriate to reduce radiation dose to as low as reasonably achievable. Dictated by Jean Segovia MD @ 07/18/2025 9:56:03 PM Signed by:?Jean Segovia MD @07/18/2025 9:56:03 PM (Electronic Signature)
--- NOTE | 2025-07-18 20:11 | CRLHL7_ITS ---
For Patients: As a result of the Century Cures Act, medical imaging exams and procedure reports are released immediately into your electronic medical record. You may view this report before your referring provider. If you have questions, please contact your health care provider. INDICATION: Discoordination. Left arm weakness. TECHNIQUE: CT of the head without contrast. Coronal and sagittal reformats are included. COMPARISON: None. FINDINGS: No CT evidence of acute cortical infarct. No loss of jimenez white matter differentiation. No hyperdense vessels to suggest intracranial thrombus. No acute intracranial hemorrhage. No mass effect or midline shift. No hydrocephalus or extra-axial collections. White matter is within normal limits for age. No acute osseous abnormalities. Mastoid air cells and paranasal sinuses are clear. Normal soft tissues. IMPRESSION: IMPRESSION:1. No CT evidence of acute cortical infarct. No acute intracranial hemorrhage. No other acute intracranial findings. Please note that all CT scans at this facility use dose modulation, iterative reconstruction, and/or weight-based dosing when appropriate to reduce radiation dose to as low as reasonably achievable. Dictated by Norman Dunlap MD @ 07/18/2025 8:45:22 PM (Electronically Signed)
--- NOTE | 2025-07-18 20:11 | CT_ITS ---
Patient: LISSA AVENDANO Facility:?[facility] Patient ID:?[id number] Site Patient ID:?[id number]. Site :?[id number] Study:?CT-Head Angio CODE STROKE 95CC ISOVUE 370-07/18/2025 8:29:32 PM Ordering Physician:Emigdio Gutierrez Final Report: DATE: 07/18/2025 CLINICAL HISTORY: Patient with focal neurological deficits. TECHNIQUE: Standard helical CT image acquisition through the head and neck was performed after intravenous contrast bolus enhancement. 2D and 3D MIP images for post- processing were performed and interpreted on an independent workstation and 3D images were permanently archived. COMPARISON: CT same day. FINDINGS: The origins of the great vessels from the aortic arch are patent. The origin of the right vertebral artery is patent. The origin of the left vertebral artery is patent. The common carotid arteries are patent There is no stenosis at the origin of the right internal carotid artery. There is no stenosis at the origin of the left internal carotid artery. The rest of the cervical segments of the internal carotid arteries are patent up to their intracranial segments. The intracranial segments of the internal carotid arteries are patent. The left vertebral artery is dominant. The cervical segments of the vertebral arteries are patent. The intracranial segments of the vertebral arteries are patent. The middle cerebral arteries are normal without aneurysm or proximal occlusion identified. The anterior cerebral arteries are normal without aneurysm or proximal occlusion identified. The anterior communicating artery is well visualized and appears normal. The basilar artery is normal without aneurysm or occlusion. The posterior cerebral arteries are normal without aneurysm or proximal occlusion. There is normal opacification of major intracranial venous structures. The visualized lung apices are unremarkable The thyroid gland is unremarkable. The soft tissues of the neck are unremarkable. There are degenerative changes in the cervical spine. IMPRESSION: Normal CT angiogram of the head and neck. Please note that all CT scans at this facility use dose modulation, iterative reconstruction, and/or weight-based dosing when appropriate to reduce radiation dose to as low as reasonably achievable. Dictated by Jean Segovia MD @ 07/18/2025 9:55:26 PM Signed by:?Jean Segovia MD @07/18/2025 9:55:26 PM (Electronic Signature)
[2025-07-18 20:27] LABS: Hematocrit* 43.0 % (33.0-51.0); Hemoglobin* 15.5 gm/dL (12.0-16.0); Immature Granulocytes Abs Auto 0.01 K/uL (0.00-0.30); Immature Granulocytes Pct Auto 0.2 %; Lymphocytes Absolute Auto 1.91 K/uL (0.90-2.90); Mean Corpuscular HGB Conc 36 gm/dL (32-36); Mean Corpuscular Hemoglobin 33 pg (26-34); Mean Corpuscular Volume 91 fL (80-100); RDW Coefficient of Variation % 11.3 % (11.5-15.5); Red Blood Count* 4.73 m/uL (4.00-5.20); White Blood Count* 5.63 K/uL (4.50-11.00)
[2025-07-18 20:36] LABS: Slide Review Reflex No
[2025-07-18 20:42] LABS: Chloride* 98 mmol/L (96-114); Potassium* 4.7 mmol/L (3.6-5.1); Sodium* 137 mmol/L (135-149)
[2025-07-18 20:43] LABS: INR 0.99 (0.91-1.10); Prothrombin Time 13.9 Seconds
[2025-07-18 20:45] LABS: Anion Gap 9 mEq/L (7-15); Blood Urea Nitrogen* 10 mg/dL (7-30); Carbon Dioxide* 30 mmol/L (20-32); Creatinine* 0.7 mg/dL (0.5-1.5); Est. Creatinine Clearance* 69.06; Estimated Glomerular Filt Rate 105 ml/min
[2025-07-18 20:46] LABS: Calcium* 9.8 mg/dL (8.4-10.6); Glucose* 219 mg/dL (60-115)
[2025-07-18] MEDS: LABETALOL HCL 5 MG/ML inj 10 MG IVP (21:01)
[2025-07-18] MEDS: TENECTEPLASE 5 MG/ML inj 17.5 MG IVP (21:09)
--- OUTSIDE RECORDS SUMMARY | 2025-07-18 21:23 | XMS_ITS | Clinical Summary ---
Author Organization [facility] Address [address] [place] [address] Care Team Providers Care Cash Van Salesperson Name Role Phone Pcp, No Primary Care Provider Unavailabl e Allergies Active Allergy Reactions Criticality Noted Date Comments Azithromycin *Unknown 01/09/2015 Cephalosporins Anaphylaxis 10/14/2006 Nitrofurantoin Anaphylaxis High 09/11/2015 Penicillins Anaphylaxis 10/14/2006 Medications EPINEPHrine (EPIPEN) 0.3 mg/0.3 mL injectionIndicati ons:Anaphylaxis, sequela Inject 1 pen intramuscular as directed if needed. 2 Each 3 05/25/20 19 Active Blood-Glucose MeterIndications: Uncontrolled type 2 diabetes mellitus with hyperglycemia (HC) Accucheck Liberty meter 1 Device 05/25/20 19 Active blood sugar diagnostic (ACCU-CHEK LIBERTY PLUS TEST STRP) stripIndications: Uncontrolled type 2 diabetes mellitus with hyperglycemia (HC) Dispense test strips covered by the patient insurance. Test 2 times per day. 200 Each 2 05/25/20 19 Active lancets (ACCU-CHEK MULTICLIX LANCET)Indication s:Uncontrolled type 2 diabetes mellitus with hyperglycemia (HC) Dispense item covered by pt ins. E11.9 NIDDM type II - Test 2 times/day. 200 Each 2 05/25/20 19 Active pen needle, diabetic (BD INSULIN PEN NEEDLE UF) 31 gauge x 5/16Indications: Diabetes mellitus without complication (HC) Injects 5 times a day 500 Each 3 06/26/20 19 Active flash glucose sensor (FREESTYLE SE 14 DAY SENSOR) kitIndications:Un controlled type 2 diabetes mellitus with hyperglycemia (HC) As directed. Wear each for 14 days 2 Each 11 08/31/20 19 Active blood-glucose meterIndications: Uncontrolled type 2 diabetes mellitus with hyperglycemia (HC) Dispense meter, test strips, lancets covered by pt ins. E11.65 NIDDM type II, uncontrolled - Test 3 times/day, Reason: High A1C 1 Device 04/17/20 20 Active medroxyPROGESTERo ne (PROVERA) 5 mg tabletIndications :PCOS (polycystic ovarian syndrome) 5 mg daily for 10 days every 2-3 months for endometrial protection 60 tablet 2 04/17/20 20 Active nicotine (NICOTROL) 10 mg inhalerIndication s:Encounter for smoking cessation counseling Inhale 10 mg by mouth every hour if needed for Nicotine Craving. 168 Each 2 09/25/20 20 Active aspirin chewable 81 mg chewable tabletIndications :Diabetes mellitus without complication (HC) Take 1 tablet by mouth once daily with a meal. 90 tablet. 3 09/25/20 20 Active metoprolol succinate (TOPROL XL) 100 mg Sustained-Release tabletIndications :Essential hypertension Take 1 Tablet (100 mg) by mouth once daily. 90 tablet. 1 08/27/20 21 Active metFORMIN (GLUCOPHAGE XR) 500 mg Extended-Release tabletIndications :Uncontrolled type 2 diabetes mellitus with hyperglycemia (HC) Take 2 Tablets (1,000 mg) by mouth 2 times daily with meals. 360 tablet. 1 08/27/20 21 Active levothyroxine (SYNTHROID) 137 mcg tabletIndications :Hypothyroidism, unspecified type Take 1 Tablet (137 mcg) by mouth once daily. 90 tablet. 1 08/27/20 21 Active liraglutide (VICTOZA) 0.6 mg/0.1 mL (18 mg/3 mL) injectionIndicati ons:Uncontrolled type 2 diabetes mellitus with hyperglycemia (HC) Inject 0.6 mg subcutaneous once daily. 9 mL 08/27/20 21 Active buPROPion (WELLBUTRIN XL) 300 mg Extended-Release tabletIndications :Bipolar affective disorder, remission status unspecified (HC) Take 1 Tablet (300 mg) by mouth every morning. 90 Tablet 1 08/27/20 21 Active insulin degludec, U-200, (Tresiba FlexTouch U-200) 200 unit/mL (3 mL) penIndications:Un controlled type 2 diabetes mellitus with hyperglycemia (HC) INJECT 110 UNITS SUBCUTANEOUSLY ONCE DAILY 54 mL 09/18/20 Active insulin aspart, U-100, (NovoLOG Flexpen U-100 Insulin) 100 unit/mL (3 mL) penIndications:Un controlled type 2 diabetes mellitus with hyperglycemia (HC) Inject 40 units subcutaneous 3 times daily before meals. Plus Corrective dose insulin 90 mL 09/18/20 21 Active Active Problems Problem Noted Date Diagnosed [...] to Care Guide Reyna Mendoza Phone number [phone] Hypothyroidism 10/14/2006 01/20/2016 Type 2 Diabetes A1C < 7.5 09/18/2002 Encounters Date Type Department Care Team Description 07/18/2025 8:30 PM CDT Hospital Encounter [facility] [address] [place] [address] Ethan De La Cruz MD Jacoby, Katherine Jeanette, MD from Last 3 Months Immunizations Immunization Administration Dates Next Due AMB Influenza, IIV3 (Age >=3 years)(Flu Clinic Only) 07/26/2009 COVID-19 vaccine (Jobspot-Bio NTech 30mcg/0.3mL) SHAUN OSPINA 11/28/2020,11/07/2020 DTP 09/10/1978, 5,1975,1974 Hepatitis B (Adult) [...] Paying Living Expenses Not on file 10/18/2021 Comments No Sex and Gender Information Value Date Recorded Sex Assigned at Not on file Legal Sex Female 5:17 AM PROCESS 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 Gender Identity Not on file Sexual Orientation Not on file Occupation Industry Job Start Date Job End Date Not on file Not on file Not on file Not on file Obstetrics History Para Term [...] al Livin g Fran [place] Delivery Location:[facility] 2004 Term 39w 0d 3.54 kg (7 lb 13 oz) M Vag Epidur al Livin g 9 9 Ap McInt [place] Delivery Location:[facility] 2007 Term 38w 0d 3.74 kg (8 lb 4 oz) M VAGINA L VACU Epidur al Livin g 4 9 [place] Delivery Location:[facility] 2009 AB 6w0 d Last Filed Vital Signs Vital Sign Reading Time Taken Comments Blood Pressure 130/83 08/27/2021 1:23 PM PROCESS CONTROL ENGINEER Pulse 68 08/27/2021 1:23 PM PROCESS CONTROL ENGINEER Temperature 37.2 C (99 F) 07/08/2020 2:26 PM CDT Respiratory Rate 20 04/05/2019 5:49 PM CDT Oxygen Saturation 98% 08/27/2021 1:23 PM PROCESS CONTROL ENGINEER Inhaled Oxygen Concentration - - Weight 83 kg (183 lb) 08/27/2021 1:23 PM PROCESS CONTROL ENGINEER Height 157.5 cm (5' 2) 07/08/2020 2:26 PM CDT Body Mass Index 33.47 07/08/2020 2:26 PM CDT Plan of Treatment Health Maintenance Due Date Last Done Comments Hepatitis B series for 19+ ( 2 of 3 - 19+ 3-dose series) 08/21/2014 07/24/2014 Colonoscopy through age 75 02/29/2020 BMI (ht and wt on same day) for age 18+ 07/08/2021 07/08/2020, 04/17/2020, 08/31/2019, Additional history exists Mammogram for age 45-75 08/20/2022 08/20/20, 05/31/2019, 03/22/2017, Additional history exists Depression screening for age 12+ 08/28/2022 08/28/2021, 08/27/2021, 09/25/2020, Additional history exists Lipids for age 45-75 01/19/2024 01/18/2019, 01/18/2019, 05/20/2018, Additional history exists Pneumococcal series for age 50+ (1 of 1 - PCV) 2025 Zoster (shingles) series for age 50+ (1 of 2) 2025 COVID-19 vaccine series (3 - season) 2025 11/28/2020, 11/07/2020 Influenza Vaccine (#1) 2025 8, 09/06/2017, 07/23/2016, Additional history exists Pap test for age 21-65 03/05/2026 , 03/05/2021, 12/16/2012, Additional history exists Tetanus booster 03/05/2031 03/05/2021, 06/0 12/2009, 03/20/2010, Additional history exists RSV vaccine for adults or (1 - 1-dose 75+ series) 2050 HIV for age 15-65 Completed 10/20/2007 Hepatitis C screening for ag e 18-79 Completed 11/03/2013, 07/06/2008 Procedures Procedure Name Priority Date/Time Associated Diagnosis Comments XR MAMMO VAN BILAT SCREEN Routine 08/20/2021 11:20 AM CDT Visit for screening mammogram APPEALS ANALYST THIN PREP PAP SCREEN IMAGED Routine 03/05/2021 11:34 AM CDT Screening for cervical cancer LIPID PANEL W REFLEX MEASURED LDL Add On 01/18/2019 11:19 AM CDT Dyslipidemia ANTI HCV Routine 11/03/2013 12:33 PM PROCESS CONTROL ENGINEER Elevated LFTs ANTI HIV 1/2 Routine 10/20/2007 2:07 PM PROCESS CONTROL ENGINEER Supervision Of Other Normal (Hc) from Last 3 Months or Most Recently [...] results in an easy to read format. If you have questions about your results, please contact your referring provider. Narrative 08/21/2021 4:31 PM CDT For Patients: As a result of the Cures Act, medical imaging exams and procedure reports are released immediately into your electronic medical record. You may view this report before your referring provider. If you have questions, please contact your [...] No suspicious findings. Oliva Ca MD MAMMO Final Resul t * APPEALS ANALYST THIN PREP PAP SCREEN IMAGED [[id number]] (03/05/2021 11:34 AM CDT) Case Report Gynecologic Cytology Report Case: [id number] Authorizing Provider: Oliva Ca MD Collected: 03/05/2021 1134 Ordering Location: [facility] Received: 03/05/2021 1244 Clinic First Screen: Ashleigh Bradley Specimen: APPEALS ANALYST ThinPrep Vial Screening, Cervical 03/14/2021 11:00 AM CDT [facility]AL [facility] INTERPRETATION/ RESULT NEGATIVE FOR INTRAEPITHELIAL LESION OR MALIGNANCY (NIL) (none) 03/14/2021 11:00 AM CDT [facility] at 1100 CDT ORGANISM(S) Fungal organisms morphologically consistent with Марина species 03/14/2021 11:00 AM CDT [facility] SPECIMEN ADEQUACY Satisfactory for evaluation Endocervical component present 03/14/2021 11:00 AM CDT [facility] HPV REQUEST HPV and PAP 03/14/2021 11:00 AM CDT [facility] Date of LMP 11/08/2020 03/14/2021 11:00 AM CDT [facility] Last Pap Date 201203/14/2021 11:00 AM CDT [facility] Last Pap Result NIL 11:00 AM CDT [facility] Abnormal Pap or Bradford Bx in last 5 years No 03/14/2021 11:00 AM CDT [facility] Menstrual Status Regular Periods 03/14/2021 11:00 AM CDT [facility] Bradford Bx Done Today No 03/14/2021 11:00 AM CDT [facility] Additional Information None given 03/14/2021 11:00 AM CDT [facility] Comment: Cytology is screened at [facility] - [address], [place] [address] and [facility] - [address] [place] [address] and [facility] - [address] [facility] [place] [address] Interpreted at [facility] - [address], [place] [address] Automated Review Successful 03/14/2021 11:00 AM CDT [facility] Comment:Specimen processed s uccessfully by automated wood sawyer device, ThinPrep Imaging System, [employer] ANCILLARY TESTING APPEALS ANALYST HPV Ordered, Please see separate report 03/14/2021 11:00 AM CDT [facility] Note The pap test is a [...] and malignant lesions. 03/14/2021 11:00 AM CDT [facility] Other (Cervical) Non-Blood / Unknown 03/05/2021 11:34 AM CDT 03/05/2021 12:44 PM CDT us Oliva Ca MD PATHOLOGY/CYTOLOGY Final Re sult [facility] [address] [place] [address], [place] * (ABNORMAL) LIPID PANEL W REFLEX MEASURED LDL (01/18/2019 11:19 AM CDT) CHOLESTEROL,TOTAL 188 100 - 199 mg/dL 01/18/2019 5:31 PM CDT [facility] TRIGLYCERIDES 423(H) <150 mg/dL 01/18/2019 5:31 PM T [facility] HDL CHOLESTEROL 28(L) >40 mg/dL 9 5:31 PM T [facility] NON-HDL CHOLESTEROL 160(H) <145 mg/dl 01/18/2019 5:31 PM T [facility] CHOL/HDL RATIO 6.71(H) <4.50 01/18/2019 5:31 PM T [facility] LDL CHOLESTEROL 9 5:31 PM T [facility] Comment:Invalid LDL when Tri g >400, reflexed to measured LDL PROVIDER ORDERED STATUS RANDOM 01/18/2019 5:31 PM T [facility] Blood BLOOD SPECIMEN / Unknown Venipuncture / Unknown 01/18/2019 11:19 AM CDT 01/18/2019 11:19 AM CDT us Kecia HSU CHEMISTRY Final Result [facility] [address] [place] [address], [place] * ANTI HCV (11/03/2013 12:33 PM PROCESS CONTROL ENGINEER) ANTI HCV Non-reacti ve [facility] Blood specimen (specimen) BLOOD SPECIMEN / Unknown 11/03/2013 12:33 PM PROCESS CONTROL ENGINEER 11/03/2013 12:13 PM PROCESS CONTROL ENGINEER us Karen HSU SEND OUTS Final Resu lt [facility] [place]NAL ZIP [address] [place] [address] * ANTI HIV 1/2 (10/20/2007 2:07 PM PROCESS CONTROL ENGINEER) ANTI HIV 1/2 Non-reacti ve [facility] Blood specimen (specimen) BLOOD SPECIMEN / Unknown 10/20/2007 2:07 PM PROCESS CONTROL ENGINEER 10/20/2007 1:59 PM PROCESS CONTROL ENGINEER us Matt Barroso MD SEND OUTS Final Re sult [facility] [place] ZIP [address] [address] from Last 3 Months or Most Recently Relevant to Health Maintenance Insurance [facility] [place] [id number] Care Teams Cash Van Salesperson Relationship Specialty Start Date End Date Pcp, No . PCP - General 10/02/21
--- OUTSIDE RECORDS SUMMARY | 2025-07-18 21:23 | XMS_ITS | Clinical Summary ---
Author Organization [facility] Address [address] [place] [address] Care Team Providers Care Christmas Tree Grower Name Role Phone Unavailable Primary Care Provider Unavailabl e Source Comments You are receiving this document as you are listed as the primary care provider,follow-up provider, or the patient has been referred to you for consultation.This is in compliance with the Medicare and[facility] Hospital[facility] EHR Incentive Program,which states Providers who transition their patient to another setting of careor provider of care or refers their patient to another provider of care shouldprovide summary care record for each transition of care or referral. [facility] Allergies Active Allergy Reactions Criticality Noted Date Comments Azithromycin Rash 07/23/2022 Cephalosporins Anaphylaxis High 10/14/2006 Nitrofurantoin Anaphylaxis High 09/11/2015 Penicillins Anaphylaxis High 10/14/2006 Medications aspirin 81 MG chewable tablet Chew and swallow 81 mg by mouth daily. Active omeprazole (PRILOSEC-OTC) 20 MG tabletIndications :Heartburn Take 20 mg by mouth daily. Indications: Heartburn Active Continuous Blood Gluc Sensor (FREESTYLE SE 14 DAY SENSOR) MISCIndications:U ncontrolled type 2 diabetes mellitus with hyperglycemia (HRC) Change every 14 days 6 Each 3 07/23/20 22 Active metoprolol succinate (TOPROL XL) 100 MG 24 hour release tabletIndications :Hypertension, unspecified type (HRC) Take 1 Tablet (100 mg) by mouth daily. 90 Tablet 1 07/23/20 22 Active NOVOLOG FLEXPEN 100 UNIT/ML pen injectionIndicati ons:Uncontrolled type 2 diabetes mellitus with hyperglycemia (HRC) 46u with breakfast and lunch and 40u at supper 90 mL 1 07/23/20 22 Active omeprazole (PRILOSEC) 20 MG capsuleIndication s:Gastroesophagea l reflux disease, unspecified whether esophagitis present Take 1 Capsule (20 mg) by mouth daily. Take 1 hour before a meal. 90 Capsule 3 07/23/20 22 Active metFORMIN XR (GLUCOPHAGE XR) 500 MG 24 hour release tabletIndications :Uncontrolled type 2 diabetes mellitus with hyperglycemia (HRC) Take 4 Tablets (2,000 mg) by mouth every evening with a meal. 360 Tablet 1 07/23/20 Active EPINEPHrine (EPIPEN) 0.3 MG/0.3ML injection Inject 0.3 mL (0.3 mg) intramuscularly once as needed for up to 1 dose. May repeat. 2 Each 1 07/23/20 Active exenatide ER (BYDUREON BCISE) 2 MG/0.85ML injection penIndications:Un controlled type 2 diabetes mellitus with hyperglycemia (HRC) Inject 0.85 mL (2 mg) subcutaneously once a week. 3.4 mL 1 07/23/20 22 Active EUTHYROX 137 MCG tabletIndications :Hypothyroidism (acquired) (HRC) Take 1 Tablet (137 mcg) by mouth daily. 90 Tablet 3 07/23/20 Active blood glucose (CONTOUR NEXT TEST) test stripIndications: Uncontrolled type 2 diabetes mellitus with hyperglycemia (HRC) Use to test bg 3 times daily. Use as directed. 200 Each 11 07/24/20 Active Microlet Lancets lancetsIndication s:Uncontrolled type 2 diabetes mellitus with hyperglycemia (HRC) Use 1 Each to test three times a day. 200 Each 11 07/24/20 22 Active buPROPion (WELLBUTRIN XL) 300 MG 24 hour release tabletIndications :Major depressive disorder, recurrent episode, mild (HRC) Take 1 tablet by mouth once daily 90 Tablet 08/18/20 23 Active TRESIBA FLEXTOUCH 200 UNIT/ML SOPNIndications:U ncontrolled type 2 diabetes mellitus with hyperglycemia (HRC) INJECT 112 UNITS UNDER THE SKIN ONCE DAILY. PLEASE SCHEDULE CLINIC APPOINTMENT FOR FURTHER REFILLS! 18 mL 09/16/20 23 Active Active Problems Problem Noted Date Diagnosed Date Major depressive disorder, recurrent episode, mi ld 07/23/2022 Uncontrolled type 2 diabetes mellitus with hyper glycemia 08/31/2019 Hypothyroidism (acquired) 01/20/2016 Hyperlipidemia 09/08/2011 Hypertension 07/08/2008 Immunizations Immunization Administration Dates Next Due DTP 09/10/1978, 5,1975,1974 Flu Vac (3+ yrs) 08/02/2012, 1,07/26/2009,2007,10/20/2007,08/13/2006,09/15/2005,1 10/21/2001 [id number] 10/15/2009 HepB Adult (Engerix-B, 20+ y rs, 3 dose series) 07/24/2014 Influenza [id number] 10/15/2009 Influenza IIV4 (Quadrivalent ) 0.5mL (84418) 08/12/2018,09/06/2017,07/23/2016,2014,10/15/2009 Influenza LAIV (Nasal, 2-49 yrs) 07/24/2014 Influenza LAIV3 2-49 years (Flumist) 07/24/2014 MMR 02/01/1976 OPV, Trivalent (Orimune or tOPV) 978,1975,1975,1974 Pfizer Monovalent 12+ Purple Top 11/28/2020,10/19 Td 03/10/1996 Tdap 03/05/2021,03/20/2010 Social History Tobacco Use Types Packs/Day Years Used Date Smoking Tobacco: Some Days Cigarettes 1 3 Tobacco Cessation:Ready to Q uit: Not Asked; Counseling Given: Not Answered Alcohol Use Standard Drinks/Week Comments Yes 2 (1 standard drink = 0.6 oz pur e alcohol) PHQ-2 Answer Date Recorded PHQ-2 Score 0 07/23/2022 Comments Unknown Sex and Gender Information Value Date Recorded Sex Assigned at Not on file Legal Sex Female 10:42 AM CDT Gender Identity Not on file Sexual Orientation [...] C Screening (Preventive Services) 1975 Mammogram 1975 HIV Screening (Preventive Services) 1991 Adult Preventive Visit 1993 Pneumococcal Vaccine 50+ Yrs (1 of 2 - PCV) 1994 HepB Vaccine (2) 08/21/2014 07/24/2014 FIT Colon Cancer Screening 2019 Diabetes: HGBA1C 01/21/2023 07/23/2022, 08/27/2021 Diabetes: Albumin/Creatinine Ratio, Urine 07/23/2023 07/23/2022 Diabetes: Creatinine 07/23/2023 07/23/2022 Zoster/Shingles Vaccine (1 of 2) 2025 COVID-19 Vaccine (3 - season) 2025 11/28/2020, 11/07/2020 Influenza Vaccine (#1) 2025 8, 09/06/2017, 07/23/2016, Additional history exists Cervical Cancer Screening 03/05/2026 03/05/2021 (Com pleted) Diabetes: Lipid Panel 07/23/2027 07/23/2022 DTaP/Tdap/Td Vaccine (7 - Tdap) 03/05/2031 03/05/2021, 03/20/2010, 03/10/1996, Additional history exists IPV (Polio) Vaccine Completed 09/10/1978, 1975, 1975, Additional history exists Cholesterol Discontinued 07/23/2022 HepA Vaccine Aged Out No longer eligi ble based on patient's age to complete this topic Hib Vaccine Aged Out No longer eligi ble based on patient's age to complete this topic MCV4 Vaccine Aged Out No longer eligi ble based on patient's age to complete this topic Meningococcal B Vaccine Aged Out No l onger eligible based on patient's age to complete [...] 65(H) <30 mg/g 07/23/2022 4:17 PM CDT [facility] Albumin, Urine, Random 13.0 mg/L 07/23/2022 4:17 PM CDT [facility] Creatinine, Urine, Random 20 >20 mg/dL mg/dL 07/23/2022 4:17 PM CDT [facility] Urine Non-blood Collection / Unknown 07/23/2022 11:01 AM CDT 07/23/2022 11:01 AM CDT us Casi Irvin PA-C LAB_1 Final Resul t [facility] [address] [id number], [facility] [phone] * (ABNORMAL) Lipid Panel and Direct LDL(If Needed) (07/23/2022 10:53 AM CDT) Cholesterol 199 0 - 199 mg/dL 07/23/2022 3:59 PM CDT [facility] Triglyceride 297(H) <=149 mg/dL 07/23/2022 3:59 PM CDT [facility] HDL Cholesterol 33(L) >=40 mg/dL 07/23/2022 3:59 PM CDT [facility] LDL, Calculated 107 <130 mg/dL 07/23/2022 3:59 PM CDT [facility] Non HDL Chol, Calculated 166(H) <=159 mg/dL 07/23/2022 3:59 PM CDT [facility] Cholesterol/HDL Ratio 6.0 07/23/2022 3:59 PM CDT [facility] Hours Fasting N/A 07/23/2022 3:59 PM CDT [facility] Blood Venipuncture / Unknown 07/23/2022 10:53 AM CDT 07/23/2022 10:53 AM CDT us Casi Irvin PA-C LAB_1 Final Resul t [facility] [address] [address] [phone] [facility] [address] [place] [address] [phone] * (ABNORMAL) Basic Metabolic Panel (07/23/2022 10:53 AM CDT) Sodium 140 136 - 145 mmol/L 07/23/2022 3:59 PM CDT [facility] Potassium 4.4 3.5 - 5.1 mmol/L 07/23/2022 3:59 PM CDT [facility] Chloride 102 98 - 109 mmol/L 07/23/2022 3:59 PM CDT [facility] CO2 27 20 - 29 mmol/L 07/23/2022 3:59 PM CDT [facility] Anion Gap 11 7 - 16 mmol/L 07/23/2022 3:59 PM CDT [facility] Calcium 9.6 8.4 - 10.4 mg/dL 07/23/2022 3:59 PM CDT [facility] BUN 6(L) 7 - 26 mg/dL 07/23/2022 3:59 PM CDT [facility] Creatinine 0.56 0.55 - 1.02 mg/dL 07/23/2022 3:59 PM CDT [facility] GFR, Estimated >60 >60 mL/min/1. 73m2 07/23/2022 3:59 PM CDT [facility] Glucose 138(H) 70 - 100 mg/dL 07/23/2022 3:59 PM CDT [facility] Comment:The given reference range is for the fasting state. Non-fasting reference range for glucose is 70 - 180 mg/dL. Hours Fasting N/A 07/23/2022 3:59 PM CDT [facility] Blood Venipuncture / Unknown 07/23/2022 10:53 AM CDT 07/23/2022 10:53 AM CDT us Casi Irvin PA-C LAB_1 Final Resul t [facility] [address] [address] [phone] [address] [phone] * (ABNORMAL) Hgb A1C (07/23/2022 10:53 AM CDT) Hemoglobin A1C 9.4(H) <=5.6 % 07/23/2022 4:14 PM CDT [facility] Blood Venipuncture / Unknown 07/23/2022 10:53 AM CDT 07/23/2022 10:53 AM CDT Narrative [facility] - 07/23/2022 4:14 PM CDT For patients not previously diagnosed with diabetes: 5.7-6.4%: Increased risk for diabetes 6.5% and greater: Diagnostic for diabetes For patients diagnosed with diabetes: <8.0%: Goal of therapy for ages 18-75 Clinicians may recommend a higher or lower goal for specific individuals. us Casi Irvin PA-C LAB_1 Final Resul t [facility] [address] [place] [address], [facility] [phone] from Last 3 Months or Most Recently Relevant to Health Maintenance Insurance SELF INSURED
[2025-07-18] MEDS: NICARDIPINE HCL 25 MG in 0.9 % SODIUM CHLORIDE 250 ml 240 ML 5 MG IVPB (21:33)
== END 2025-07-19 00:22 | disposition short-term general hospital (02) ==
PROVIDERS: Emergency Provider Family Medicine; PCP Family Medicine
DX: I63.9 Cerebral infarction, unspecified (principal); R27.8 Other lack of coordination; Z87.891 Personal history of nicotine dependence
CPT/HCPCS: 36415; 70450; 70496; 70498; 80048; 82962; 84484; 85025; 85610; 85730; 93005; 94761; 99284; 99291; J3101; J7050; Q9967

== ENCOUNTER 2025-07-18 21:49 | Outpatient (CLI) | payer BC, SELFPAY | END 2025-07-18 21:50 | disposition home or self-care (01) | LOC: AMB 07-24 13:32 | PROVIDERS: PCP Family Medicine; Visit Provider Family Medicine | DX: I63.9 Cerebral infarction, unspecified (principal) | CPT/HCPCS: A0425; A0427; A0433 ==

== ENCOUNTER 2025-07-31 20:19 | Observation (INO) | payer BC, SELFPAY ==
--- OUTSIDE RECORDS SUMMARY | 2025-07-31 20:21 | XMS_ITS | Clinical Summary ---
Author Organization [facility] Address [address] [place] [address] Care Team Providers Care Framing Specialist Name Role Phone Unavailable Primary Care Provider Unavailabl e Source Comments You are receiving this document as you are listed as the primary care provider,follow-up provider, or the patient has been referred to you for consultation.This is in compliance with the Medicare and[facility] EHR Incentive Program,which states Providers who transition their patient to another setting of careor provider of care or refers their patient to another provider of care shouldprovide summary care record for each transition of care or referral. [facility] Allerg[facility] Active Allergy Reactions Criticality Noted Date [...] Flu Vac (3+ yrs) 08/02/2012, 1,07/26/2009,2007,10/20/2007,08/13/2006,09/15/2005,1 10/21/2001 [id number] 10/15/2009 HepB Adult (Engerix-B, 20+ y rs, 3 dose series) 07/24/2014 Influenza [id number] 10/15/2009 Influenza IIV4 (Quadrivalent ) 0.5mL (30035) 08/12/2018,09/06/2017,07/23/2016,2014,10/15/2009 Influenza LAIV (Nasal, 2-49 yrs) 07/24/2014 [...] 03/05/2031 03/05/2021, 03/20/2010, 03/10/1996, Additional history exists RSV Vaccine (1 - 1-dose 75+ series) 2050 IPV (Polio) Vaccine Completed 09/10/1978, 1975, 1975, [...] 65(H) <30 mg/g 07/23/2022 4:17 PM CDT [facility] Albumin, Urine, Random 13.0 mg/L 07/23/2022 4:17 PM CDT [facility] Creatinine, Urine, Random 20 >20 mg/dL mg/dL 07/23/2022 4:17 PM CDT [facility] Urine Non-blood Collection / Unknown 07/23/2022 11:01 AM CDT 07/23/2022 11:01 AM CDT us Casi Irvin PA-C LAB_1 Final Resul t [facility] [address] [phone] * (ABNORMAL) Lipid Panel and Direct LDL(If Needed) (07/23/2022 10:53 AM CDT) Cholesterol 199 0 - 199 mg/dL 07/23/2022 3:59 PM CDT [facility] Triglyceride 297(H) <=149 mg/dL 07/23/2022 3:59 PM CDT [facility] HDL Cholesterol 33(L) >=40 mg/dL 07/23/2022 3:59 PM CDT [facility] LDL, Calculated 107 <130 mg/dL 07/23/2022 3:59 PM CDT [facility] Non HDL Chol, Calculated 166(H) <=159 mg/dL 07/23/2022 3:59 PM CDT [facility] Cholesterol/HDL Ratio 6.0 07/23/2022 3:59 PM CDT [facility] Hours Fasting N/A 07/23/2022 3:59 PM CDT [facility] Blood Venipuncture / Unknown 07/23/2022 10:53 AM CDT 07/23/2022 10:53 AM CDT us Casi Irvin PA-C LAB_1 Final Resul t [facility] [address] [address], [facility] [phone] [facility] [address] [place] [address], [facility] [phone] * (ABNORMAL) Basic Metabolic Panel (07/23/2022 10:53 AM CDT) Sodium 140 136 - 145 mmol/L 07/23/2022 3:59 PM CDT [facility] Potassium 4.4 3.5 - 5.1 mmol/L 07/23/2022 3:59 PM CDT [facility] Chloride 102 98 - 109 mmol/L 07/23/2022 3:59 PM CDT [facility] CO2 27 20 - 29 mmol/L 07/23/2022 3:59 PM CDT [facility] Anion Gap 11 7 - 16 mmol/L 07/23/2022 3:59 PM CDT [facility] Calcium 9.6 8.4 - 10.4 mg/dL 07/23/2022 3:59 PM CDT [facility] BUN 6(L) 7 - 26 mg/dL 07/23/2022 3:59 PM CDT [facility] Creatinine 0.56 0.55 - 1.02 mg/dL 07/23/2022 3:59 PM CDT [facility] GFR, Estimated >60 >60 mL/min/1. 73m2 07/23/2022 3:59 PM CDT [facility] Glucose 138(H) 70 - 100 mg/dL 07/23/2022 3:59 PM CDT [facility] Comment:The given reference range is for the fasting state. Non-fasting reference range for glucose is 70 - 180 mg/dL. Hours Fasting N/A 07/23/2022 3:59 PM CDT [facility] Blood Venipuncture / Unknown 07/23/2022 10:53 AM CDT 07/23/2022 10:53 AM CDT us Casi Irvin PA-C LAB_1 Final Resul t [facility] [address] [address], [facility] [phone] [facility] [address] [place] [address] [phone] * (ABNORMAL) Hgb A1C (07/23/2022 10:53 AM CDT) Hemoglobin A1C 9.4(H) <=5.6 % 07/23/2022 4:14 PM CDT [facility] Blood Venipuncture / Unknown 07/23/2022 10:53 AM CDT 07/23/2022 10:53 AM CDT Narrative [facility] - 07/23/2022 4:14 PM CDT For patients not previously diagnosed with diabetes: 5.7-6.4%: Increased risk for diabetes 6.5% and greater: Diagnostic for diabetes For patients diagnosed with diabetes: <8.0%: Goal of therapy for ages 18-75 Clinicians may recommend a higher or lower goal for specific individuals. us Casi Irvin PA-C LAB_1 Final Resul t [facility] [address] [address], [facility] [phone] from Last 3 Months or Most Recently Relevant to Health Maintenance Insurance SELF INSURED
--- OUTSIDE RECORDS SUMMARY | 2025-07-31 20:21 | XMS_ITS | Clinical Summary ---
Author Organization [employer] [facility] Address [address] [place] [id number] Care Team Providers Care Silver Solderer Name Role Phone Matt Barroso MD Primary Care Provider + Allergies Active Allergy Reactions Criticality Noted Date Comments Azithromycin *Unknown 01/09/2015 Cephalosporins Anaphylaxis 10/14/2006 Nitrofurantoin Anaphylaxis High 09/11/2015 Penicillins Anaphylaxis 10/14/2006 Medications EPINEPHrine (EPIPEN) 0.3 mg/0.3 mL injectionIndicat ions:Anaphylaxis , sequela Inject 1 pen intramuscular as directed if needed. 2 Each 3 019 Active lancets (ACCU-CHEK MULTICLIX LANCET)Indicatio ns:Uncontrolled type 2 diabetes mellitus with hyperglycemia (HC) Dispense item covered by pt ins. E11.9 NIDDM type II - Test 2 times/day. 200 Each 2 019 Active pen needle, diabetic (BD INSULIN PEN NEEDLE UF) 31 gauge x 5/16Indications :Diabetes mellitus without complication (HC) Injects 5 times a day 500 Each 3 019 Active metoprolol succinate (TOPROL XL) 100 mg Sustained-Releas e tabletIndication s:Essential hypertension Take 1 Tablet (100 mg) by mouth once daily. 90 tablet. 1 021 Active buPROPion (WELLBUTRIN XL) 300 mg Extended-Release tabletIndication s:Bipolar affective disorder, remission status unspecified (HC) Take 1 Tablet (300 mg) by mouth every morning. 90 Tablet 1 11/10/2 021 Active insulin aspart (U-100) (NOVOLOG FLEXPEN) 100 unit/mL (3 mL) pen Inject 5-10 units subcutaneous three times daily before meals. Adjusts based on carbs/intake Active insulin degludec (U-200) (TRESIBA) 200 unit/mL (3 mL) pen Inject 70 units subcutaneous once daily in the morning. Active tirzepatide (MOUNJARO) 7.5 mg/0.5 mL pen Inject 7.5 mg subcutaneous every Wednesday. Active cranberry fruit extract (CRANBERRY CONCENTRATE ORAL) Take by mouth once daily. Active aspirin chewable 81 mg tablet Chew 81 mg by mouth once daily in the evening. Active metFORMIN (GLUCOPHAGE XR) 500 mg Extended-Release tabletIndication s:Uncontrolled type 2 diabetes mellitus with hyperglycemia (HC) Take 2 Tablets (1,000 mg) by mouth two times daily with meals. Active levothyroxine (SYNTHROID) 125 mcg tabletIndication s:Hypothyroidism , unspecified type Take 1 Tablet (125 mcg) by mouth once daily. 30 Tablet 07/20/20 25 4:06 PM CDT Active atorvastatin (LIPITOR) 80 mg tabletIndication s:Hyperlipidemia , unspecified hyperlipidemia type Take 1 Tablet (80 mg) by mouth at bedtime. 30 Tablet 07/20/20 25 4:06 PM CDT Active clopidogreL (PLAVIX) 75 mg tabletIndication s:Cerebrovascula r accident (CVA), unspecified mechanism (HC) Take 1 Tablet (75 mg) by mouth once daily in the morning for 21 days. 21 Tablet 07/20/20 25 4:06 PM CDT 2024 Active Blood-Glucose MeterIndications :Uncontrolled type 2 diabetes mellitus with hyperglycemia (HC) Accucheck Liberty meter 1 Device 2024 Discontinued(O ther - add note to specify (E-cancel not sent)) blood sugar diagnostic (ACCU-CHEK LIBERTY PLUS TEST STRP) stripIndications :Uncontrolled type 2 diabetes mellitus with hyperglycemia (HC) Dispense test strips covered by the patient insurance. Test 2 times per day. 200 Each 2 2024 Discontinued(O ther - add note to specify (E-cancel not sent)) flash glucose sensor (FREESTYLE SE 14 DAY SENSOR) kitIndications:U ncontrolled type 2 diabetes mellitus with hyperglycemia (HC) As directed. Wear each for 14 days 2 Each 11 019 2024 Discontinued(O ther - add note to specify (E-cancel not sent)) blood-glucose meterIndications :Uncontrolled type 2 diabetes mellitus with hyperglycemia (HC) Dispense meter, test strips, lancets covered by pt ins. E11.65 NIDDM type II, uncontrolled - Test 3 times/day, Reason: High A1C 1 Device 020 2024 Discontinued(O ther - add note to specify (E-cancel not sent)) medroxyPROGESTER one (PROVERA) 5 mg tabletIndication s:PCOS (polycystic ovarian syndrome) 5 mg daily for 10 days every 2-3 months for endometrial protection 60 tablet 2 2024 Discontinued(P harmacist change per medication history (E-cancel not sent)) nicotine (NICOTROL) 10 mg inhalerIndicatio ns:Encounter for smoking cessation counseling Inhale 10 mg by mouth every hour if needed for Nicotine Craving. 168 Each 2 020 2024 Discontinued(P harmacist change per medication history (E-cancel not sent)) aspirin chewable 81 mg chewable tabletIndication s:Diabetes mellitus without complication (HC) Take 1 tablet by mouth once daily with a meal. 90 tablet. 3 020 2024 Discontinued(P harmacist change per medication history (E-cancel not sent)) metFORMIN (GLUCOPHAGE XR) 500 mg Extended-Release tabletIndication s:Uncontrolled type 2 diabetes mellitus with hyperglycemia (HC) Take 2 Tablets (1,000 mg) by mouth 2 times daily with meals. 360 tablet. 1 021 2024 Discontinued levothyroxine (SYNTHROID) 137 mcg tabletIndication s:Hypothyroidism , unspecified type Take 1 Tablet (137 mcg) by mouth once daily. 90 tablet. 1 021 2024 Discontinued(* IP Discontinued) liraglutide (VICTOZA) 0.6 mg/0.1 mL (18 mg/3 mL) injectionIndicat ions:Uncontrolle d type 2 diabetes mellitus with hyperglycemia (HC) Inject 0.6 mg subcutaneous once daily. 9 mL 021 2024 Discontinued(P harmacist change per medication history (E-cancel not sent)) insulin degludec, U-200, (Tresiba FlexTouch U-200) 200 unit/mL (3 mL) penIndications:U ncontrolled type 2 diabetes mellitus with hyperglycemia (HC) INJECT 110 UNITS SUBCUTANEOUSLY ONCE DAILY 54 mL 021 2024 Discontinued(P harmacist change per medication history (E-cancel not sent)) insulin aspart, U-100, (NovoLOG Flexpen U-100 Insulin) 100 unit/mL (3 mL) penIndications:U ncontrolled type 2 diabetes mellitus with hyperglycemia (HC) Inject 40 units subcutaneous 3 times daily before meals. Plus Corrective dose insulin 90 mL 2024 Discontinued(P harmacist change per medication history (E-cancel not sent)) omeprazole (PRILOSEC-OTC) 20 mg tablet Take 20 mg by mouth daily in evening if needed (heartburn). 2024 Discontinued(* Medication adjustment) fenofibrate 160 mg tablet Take 160 mg by mouth once daily. 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 Please look for [facility] Goal Contract in Chart Review/ Letters and support this effort. Please direct questions to Care Guide Reyna Mendoza Phone number [phone] Hypothyroidism 10/14/2006 01/20/2016 Type 2 Diabetes A1C < 7.5 09/18/2002 Encounters Date Type Department Care Team Description 07/24/2025 Transcribe Orders [facility] [address] [id number] Matt Barroso MD 07/24/2025 Transcribe Orders [address] [address] Matt Barroso MD 07/19/2025 Travel 07/18/2025 10:48 PM CDT - 07/21/2025 10:00 AM CDT Hospital Encounter [facility] [address] [place], [place] [id number] Ethan De La Cruz MD Melamed, Roman, MD Weise, MD Desmond Rogerskvicviktor, MD Stanislav Estrella Maliha, MD [facility] [place] S/P admn tPA in diff fac w/n last 24 hr bef adm to crnt fac (Primary Dx); Uncontrolled type 2 diabetes mellitus with hyperglycemia (HC); Hypothyroidism, unspecified type; Hyperlipidemia, unspecified hyperlipidemia type; Cerebrovascular accident (CVA), unspecified mechanism (HC) Discharge Disposition: Home Self Care 07/18/2025 Office Visit [facility] [address] [place] [phone] Anne-Marie Means MD Telehealth ([facility]) from Last 3 Months Immunizations Immunization Administration Dates Next Due AMB Influenza, IIV3 (Age >=3 years)(Flu Clinic Only) 07/26/2009 COVID-19 vaccine (IndiPharm-Bio NTech 30mcg/0.3mL) PF, MDV 11/28/2020,11/07/2020 DTP 09/10/1978, 5,1975,1974 [...] 3 08/27/2021 Social Connections Answer Date Recorded Do you often feel lonely or isolated from those around you? 0 07/19/2025 Financial Resource Strain Answer Date R ecorded Difficulty of Paying Living Expenses 2 07/19/2025 Difficulty of Paying Living Expenses 1 07/19/2025 Food Insecurity Answer Date Recorded Do you worry your food will run out before you are able to buy more? 1 07/19/2025 Transportation Needs Answer Date Record ed Does lack of transportation keep you from medica l appointments? 1 07/19/2025 Does lack of transportation keep you from work, meetings or getting things that you need? 1 07/19/2025 Housing Stability Answer Date Recorded What is your housing situation today? 1 07/19/2025 Interpersonal Safety Answer Date Record ed Are you being hit, kicked, p ushed or yelled at (see row info)? No 07/19/2025 Interpersonal Safety Abuse 12 - 18 Not on file 07/19/2025 Interpersonal Safety Ambulatory Vulnerability No t on file 07/19/2025 Utilities Answer Date Recorded Do you have trouble paying f or utilities (for example, heat, electricity, water, phone)? 2 07/19/2025 Comments No Sex and Gender Information Value Date Recorded Sex Assigned at Not on file Legal Sex Female 5:17 AM [employer] Gender Identity Not on file Sexual Orientation [...] al Livin g Fran [place] Delivery Location:[facility] 2004 Term 39w 0d 3.54 kg (7 lb 13 oz) M Vag Epidur al Livin g 9 9 Ap McInt [place] Delivery Location:[facility] 2007 Term 38w 0d 3.74 kg (8 lb 4 oz) M VAGINA L VACU Epidur al Livin g 4 9 Mc[place] Delivery Location:[facility] 2009 AB 6w0 d Last Filed Vital Signs Vital Sign Reading Time Taken Comments Blood Pressure 154/82 07/21/2025 8:09 AM CDT Pulse 78 07/21/2025 8:09 AM CDT Temperature 36.3 C (97.4 F) 07/21/2025 8:09 AM CDT Respiratory Rate 16 07/21/2025 8:09 AM CDT Oxygen Saturation 98% 07/21/2025 8:09 AM CDT Inhaled Oxygen Concentration - - Weight 70.3 kg (154 lb 15.7 oz) 07/19/2025 6:00 AM CDT Height 152.4 cm (5') 07/19/2025 6:00 AM CDT Body Mass Index 30.27 07/19/2025 6:00 AM CDT Plan of Treatment Health Maintenance Due Date Last Done Comments Pneumococcal series for age 50+ (1 of 2 - PCV) 1994 Hepatitis B series for 19+ ( 2 of 3 - 19+ 3-dose series) 08/21/2014 07/24/2014 Colonoscopy through age 75 02/29/2020 BMI (ht and wt on same day) for age 18+ 07/08/2021 07/08/2020, 04/17/2020, 08/31/2019, Additional history exists Mammogram for age 45-75 08/20/2022 08/20/20 21, 05/31/2019, 03/22/2017, Additional history exists Depression screening for age 12+ 08/28/2022 08/28/2021, 08/27/2021, 09/25/2020, Additional history exists Zoster (shingles) series for age 50+ (1 of 2) 2025 COVID-19 vaccine series (3 - 2024- season) 2025 11/28/2020, 11/07/2020 Influenza Vaccine (#1) 2025 8, 09/06/2017, 07/23/2016, Additional history exists Pap test for age 21-65 03/05/2026 1, 03/05/2021, 12/16/2012, Additional history exists Lipids for age 45-75 07/19/2030 07/19/2025, 01/18/2019, 01/18/2019, Additional history exists Tetanus booster 03/05/2031 03/05/2021, 06/0 12/2009, 03/20/2010, Additional history exists RSV vaccine for adults or (1 - 1-dose 75+ series) 2050 HIV for age 15-65 Completed 10/20/2007 Hepatitis C screening for ag e 18-79 Completed 11/03/2013, 07/06/2008 Procedures Procedure Name Priority Date/Time Associated Diagnosis Comments POTASSIUM Early AM 07/21/2025 6:52 AM CDT MAGNESIUM Early AM 07/21/2025 6:52 AM CDT GLUCOSE METER Timed 07/21/2025 6:44 AM CDT GLUCOSE METER Timed 07/21/2025 1:54 AM CDT SCAN-CARDIAC STRIP 07/21/2025 12 :39 AM CDT GLUCOSE METER Timed 07/20/2025 9:07 PM CDT GLUCOSE METER Timed 07/20/2025 6:22 PM CDT GLUCOSE METER Timed 07/20/2025 12:03 PM CDT T4,FREE TRACI 07/20/2025 9:00 AM CDT T3,FREE TRACI 07/20/2025 9:00 AM CDT CORTISOL TOTAL Early AM 07/20/2025 9:00 AM CDT TSH Early AM 07/20/2025 9:00 AM CDT MAGNESIUM Early AM 07/20/2025 9:00 AM CDT POTASSIUM Early AM 07/20/2025 9:00 AM CDT GLUCOSE METER Timed 07/20/2025 8:53 AM CDT GLUCOSE METER Timed 07/20/2025 6:45 AM CDT SCAN-CARDIAC STRIP 07/20/2025 4: 15 AM CDT GLUCOSE METER Timed 07/20/2025 2:00 AM CDT SCAN-CARDIAC STRIP 07/19/2025 9: 57 PM CDT GLUCOSE METER Timed 07/19/2025 9:18 PM CDT MR BRAIN LTD WO CONTRAST Routine 07/19/2025 3:45 PM CDT SCAN CORRESP-EKG RESULTS 07/19/2025 1:45 PM CDT SCAN CORRESP-IMAGING 07/19/2025 1:45 PM CDT ECHO TTE COMPLETE W CONTRAST Routine 07/19/2025 12:49 PM CDT GLUCOSE METER Timed 07/19/2025 12:23 PM CDT GLUCOSE METER Timed 07/19/2025 10:02 AM CDT SCAN-CARDIAC STRIP 07/19/2025 8: 09 AM CDT GLUCOSE METER Timed 07/19/2025 7:41 AM CDT MAGNESIUM TRACI 07/19/2025 5:31 AM CDT CBC WITH AUTO DIFFERENTIAL Early AM 07/19/2025 5:31 AM CDT BASIC METABOLIC PANEL Early AM 07/19/2025 5:31 AM CDT HEMOGLOBIN A1C Early AM 07/19/2025 5:31 AM CDT CBC WITH AUTO DIFFERENTIAL Early AM 07/19/2025 5:31 AM CDT LIPID PANEL Early AM 07/19/2025 5:31 AM CDT PROTIME-INR Early AM 07/19/2025 5:31 AM CDT APTT Early AM 07/19/2025 5:31 AM CDT GLUCOSE METER Timed 07/19/2025 4:16 AM CDT GLUCOSE METER Timed 07/18/2025 11:32 PM CDT SCAN-CARDIAC STRIP 07/18/2025 11 :15 PM CDT EKG 12 LEAD STAT 07/18/2025 11:12 PM CDT XR MAMMO VAN BILAT SCREEN Routine 08/20/2021 11:20 AM CDT Visit for screening mammogram [employer] THIN PREP PAP SCREEN IMAGED Routine 03/05/2021 11:34 AM CDT Screening for cervical cancer ANTI HCV Routine 11/03/2013 12:33 PM [employer] Elevated LFTs ANTI HIV 1/2 Routine 10/20/2007 2:07 PM [employer]IST Supervision Of Other Normal (Hc) from Last 3 Months or Most Recently Relevant to Health Maintenance Results * POTASSIUM (07/21/2025 6:52 AM CDT) Only the most recent of2 resultswithin the time period is included. POTASSIUM 3.7 3.5 - 5.1 mmol/L 07/21/2025 7:48 AM CDT [facility] Blood BLOOD SPECIMEN / Unknown Venipuncture / Unknown 07/21/2025 6:52 AM CDT 07/21/2025 7:07 AM CDT us Shanae Colorado MD CHEMISTRY Final Result [facility] [address] [place] [address], * MAGNESIUM (07/21/2025 6:52 AM CDT) Only the most recent of3 resultswithin the time period is included. MAGNESIUM 1.6 1.6 - 2.6 mg/dL 07/21/2025 7:48 AM CDT [facility] Blood BLOOD SPECIMEN / Unknown Venipuncture / Unknown 07/21/2025 6:52 AM CDT 07/21/2025 7:07 AM CDT Shanae Colorado MD CHEMISTRY Final Result Performing Organization Address City/[facility]/ZIP Co de Phone Number [facility] [address] [place] [address], [place] * (ABNORMAL) GLUCOSE METER (07/21/2025 6:44 AM CDT) Only the most recent of14 resultswithin the time period is included. GLUCOSE METER 190(H) 65 - 100 mg/dL 07/21/2025 6:45 AM CDT [facility] Blood BLOOD SPECIMEN / Unknown 07/21/2025 6:44 AM CDT 07/21/2025 6:45 AM CDT Shanae Colorado MD CHEMISTRY Final Result Performing Organization Address City/[facility] Co de Phone Number [facility] [address] [place] [address], [place] * SCAN-CARDIAC STRIP (07/21/2025 12:39 AM CDT) Scanner OTHER Final Result * Cortisol AM (07/20/2025 9:00 AM CDT) CORTISOL,TOTAL 16.3 ug/dL 07/20/2025 9:56 AM CDT [facility] Blood BLOOD SPECIMEN / Unknown Butterfly / Unknown 07/20/2025 9:00 AM CDT 07/20/2025 9:14 AM CDT Narrative [facility] - 07/20/2025 9:56 AM CDT Cortisol Morning Hours 6:00 AM - 10:00 AM (4.8-19.5 ug/dL) Cortisol Afternoon Hours 4:00 PM - 8:00 PM (2.5-11.9 ug/dL) Biotin supplements may cause clinically significant interference for this test assay. If interference is suspected, it is strongly recommended that biotin is discontinued for at least one week prior to retesting. Thien Anderson MD CHEMISTRY Final Re sult Performing Organization Address [facility] de Phone Number [facility] [address] [address], [place] * (ABNORMAL) TSH AM (07/20/2025 9:00 AM CDT) TSH 0.05(L) 0.27 - 4.20 uIU/mL 07/20/2025 9:56 AM CDT [facility] Blood BLOOD SPECIMEN / Unknown Butterfly / Unknown 07/20/2025 9:00 AM CDT 07/20/2025 9:14 AM CDT Narrative [facility] - 07/20/2025 9:56 AM CDT In Adults, TSH values between 5.00 and 10.00 uIU/ml do not necessarily indicate the presence of Hypothyroidism. Correlation with clinical findings such as presence of goiter and/or Thyroperoxidase (TPO) Antibody may be helpful. For more information please refer to JOSEPH 2004; 291: 228-238. Thien Anderson MD CHEMISTRY Final Re sult Performing Organization Address [facility] de Phone Number [facility] [address] [address], [place] * T3, free AM (07/20/2025 9:00 AM CDT) T3,FREE 2.52 2.00 - 4.40 pg/mL 07/20/2025 12:46 PM CDT [facility] Blood BLOOD SPECIMEN / Unknown Butterfly / Unknown 07/20/2025 9:00 AM CDT 07/20/2025 9:14 AM CDT Shanae Colorado MD CHEMISTRY Final Result Performing Organization Address City/[facility]/ZIP Co de Phone Number [facility] [address] [place] [address], * (ABNORMAL) T4, free AM (07/20/2025 9:00 AM CDT) T4,FREE 1.72(H) 0.93 - 1.70 ng/dL 07/20/2025 12:46 PM CDT [facility] Blood BLOOD SPECIMEN / Unknown Butterfly / Unknown 07/20/2025 9:00 AM CDT 07/20/2025 9:14 AM CDT Shanae Colorado MD CHEMISTRY Final Result Performing Organization Address [facility] Phone Number [facility] [address] [place] [address], * SCAN-CARDIAC STRIP (07/20/2025 4:15 AM CDT) us Scanner OTHER Final Result * SCAN-CARDIAC STRIP (07/19/2025 9:57 PM CDT) us Scanner OTHER Final Result * MR BRAIN LTD WO CONTRAST (07/19/2025 3:45 PM CDT) Anatomical Region Laterality Modality HEAD Magnetic Resonan ce 07/19/2025 4:14 PM CDT Narrative 07/19/2025 4:14 PM CDT For Patients: As a result of the 21st Century Cures Act, medical imaging exams and procedure reports are released immediately into your electronic medical record. You may view this report before your referring provider. If you have questions, please contact your health care provider. Indication: Acute neurologic deficit. Technique: Multiplanar multisequence noncontrast MR images of the brain. Comparison: None. Findings: The ventricles and sulci are within normal limits for patient age no mass effect or midline shift. Small scattered FLAIR hyperintensities in the supratentorial white matter, nonspecific. No diffusion restriction to suggest acute infarction. No intracranial hemorrhage or pathologic extra-axial fluid collection. Partially empty sella. The major arterial flow voids of the skull base are preserved. Globes are symmetric. Minimal ethmoid sinus mucosal thickening. Mastoid air cells are clear. Impression: 1. No acute intracranial abnormality. 2. Scattered FLAIR hyperintensities in the supratentorial white matter are nonspecific, though most typical for mild chronic microvascular ischemic changes or sequela of migraine headaches. 3. Partially empty sella may represent an anatomic variant, the raises the possibility of idiopathic intracranial hypertension in an appropriate clinical setting. Dictated by Cal Tinajero MD @ 07/19/2025 4:14:47 PM (Electronically Signed) Procedure Note Cal Tinajero MD - 07/19/2025 For Patients: As a result of the Cures Act, medical imagingexams and procedure reports are released immediately into your electronicmedical record. You may view this report before your referring provider.If you have questions, please contact your health care provider. Indication: Acute neurologic deficit. Technique: Multiplanar multisequence noncontrast MR images of the brain. Comparison: None. Findings: The ventricles and sulci are within normal limits for patient age no masseffect or midline shift. Small scattered FLAIR hyperintensities in thesupratentorial white matter, nonspecific. No diffusion restriction to suggest acute infarction. No intracranialhemorrhage or pathologic extra-axial fluid collection. Partially emptysella. The major arterial flow voids of the skull base are preserved. Globes aresymmetric. Minimal ethmoid sinus mucosal thickening. Mastoid air cells areclear. Impression: 1. No acute intracranial abnormality. 2. Scattered FLAIR hyperintensities in the supratentorial white matter arenonspecific, though most typical for mild chronic microvascular ischemicchanges or sequela of migraine headaches. 3. Partially empty sella may represent an anatomic variant, the raises thepossibility of idiopathic intracranial hypertension in an appropriateclinical setting. Dictated by Cal Tinajero MD @ 07/19/2025 4:14:47 PM (Electronically Signed) us Anne-Marie Means MD MR Final Resul t * SCAN CORRESP-EKG RESULTS (07/19/2025 1:45 PM CDT) Narrative 07/19/2025 1:45 PM CDT Ordered by an unspecified provider. us Other Clinical Staff OTHER Final Resul t * SCAN CORRESP-IMAGING (07/19/2025 1:45 PM CDT) Anatomical Region Laterality Modality Other Narrative 07/19/2025 1:45 PM CDT Ordered by an unspecified provider. us Other Clinical Staff OTHER Final Resul t * ECHO TTE COMPLETE W CONTRAST (07/19/2025 12:49 PM CDT) AORTIC VALVE MEAN PG 4 mmHg EJECTION FRACTION 63 % LVEDD 4.0 cm EJECTION FRACTION 60 - 65% Anatomical Region Laterality Modality Ultrasound 07/19/2025 9:50 AM CDT Narrative 07/19/2025 1:31 PM CDT ECHOCARDIOGRAM LISSA AVENDANO : 1975 50 years Study Date: 07/19/2025 9:50:46 AM Gender: F BP: 156/75 mmHg Height: 152.00 cm BSA: 1.67 m Weight: 70.00 kg Tech: DW/NK Referring MD: ANNE-MARIE MEANS Site: [facility] Reading Location: [facility] Patient Location: Inpatient. Procedure: 2D, Color Doppler and Spectral Doppler. Indication for study: CEREBRAL THROMBOSIS, EMBOLISM, ARTERY OCCUSION Cardiac Rhythm: Regular.Study quality: Fair. Final Impressions: 1. Normal LV size, normal wall thickness, normal global systolic function with an estimated EF of 60 - 65%. 2. Normal diastolic function. 3. Right ventricular cavity size is normal, global systolic RV function is normal. 4. Quality of bubble study suboptimal. No clear interatrial shunt is seen. 5. Echo contrast was administered to enhance visualization of all left ventricular segments. Chamber Sizes and Function Normal left ventricular size, normal wall thickness, normal global systolic function with an estimated EF of 60 - 65%. No resting regional wall motion abnormality visualized. Left atrial size is normal. Right ventricular cavity size is normal, global systolic RV function is normal. RV wall thickness is normal. The right atrium is normal. Right atrial area is 13 cm . The pulmonary artery is not well visualized. The sinus of Valsalva is normal sized. The ascending aorta is normal sized. Valves, RV Pressures and Diastolic Function The aortic valve is trileaflet, no stenosis and no regurgitation. The mitral valve is sclerotic, trace mitral regurgitation. Normal diastolic function. The tricuspid valve is normal in structure, trace tricuspid regurgitation. Unable to assess right ventricular systolic pressure. The pulmonic valve is normal. Trace pulmonary regurgitation. Masses, Effusion, Shunts There is no pericardial effusion. The inferior vena cava is normal sized, respiratory size variation greater than 50%. Agitated saline injection showed no right to left shunt at rest or following Valsalva manuever. No left to right shunting was detected by limited color flow Doppler interrogation of the interatrial septum. MEASUREMENTS AND CALCULATIONS 2-D Measurements and LV Function: LVID (d) 4.0 cm LV FS% (2D) 33 % LVID (s) 2.7 cm LVOT diameter 2.0 cm IVS (d) 1.3 cm HR 71 bpm LVPW (d) 1.0 cm LA Vol index 24 ml/m2 Ao Sinus 3.0 cm RA area 13 cm Ao Sinus ULN 3.6 cm RV Basal Diam 3.4 cm Asc Ao 3.4 cm RV Mid Diam 2.9 cm Asc Ao ULN 3.6 cm Diastology: Mitral Tissue Doppler E Peak 0.9 m/s e', Septum 0.05 m/s A Peak 0.8 m/s e', Lateral 0.11 m/s E/A 1.2 E/e' Average 11.33 DT 161 msec Aortic Valve: Vmax 1.4 m/s JEROMY (V) 2.66 cm VTI 0.27 m JEROMY (I) 2.59 cm LVOT V max 1.2 m/s Max PG 8 mmHg LVOT VTI 0.22 m Mean PG 4 mmHg SV 70 ml Dim Index 0.82 SV index 42 ml/m CO 5.0 l/min CI 3.0 l/min/m Mitral Valve: MVA 4.7 cm MV P 1/2 47 msec Tricuspid Valve and estimated PA pressures: TAPSE 2.9 cm . This study was interpreted by an [facility] accredited facility. Final Procedure Note Usman Arthur MD - 07/19/2025 ECHOCARDIOGRAM LISSA AVENDANO : 1975 50 years Study Date: 07/19/2025 9:50:46 AM Gender: F BP: 156/75 mmHg Height: 152.00 cm BSA: 1.67 m Weight: 70.00 kg Tech: DW/NK Referring MD: ANNE-MARIE MEANS Site: [facility] Reading Location: [facility] Patient Location: Inpatient. Procedure: 2D, Color Doppler and Spectral Doppler. Indication for study: CEREBRAL THROMBOSIS, EMBOLISM, ARTERY OCCUSION Cardiac Rhythm: Regular.Study quality: Fair. Final Impressions: 1. Normal LV size, normal wall thickness, normal global systolic functionwith an estimated EF of 60 - 65%. 2. Normal diastolic function. 3. Right ventricular cavity size is normal, global systolic RV functionis normal. 4. Quality of bubble study suboptimal. No clear interatrial shunt isseen. 5. Echo contrast was administered to enhance visualization of all leftventricular segments. Chamber Sizes and Function Normal left ventricular size, normal wall thickness, normal globalsystolic function with an estimated EF of 60 - 65%. No resting regionalwall motion abnormality visualized. Left atrial size is normal. Rightventricular cavity size is normal, global systolic RV function is normal.RV wall thickness is normal. The right atrium is normal. Right atrial areais 13 cm . The pulmonary artery is not well visualized. The sinus ofValsalva is normal sized. The ascending aorta is normal sized. Valves, RV Pressures and Diastolic Function The aortic valve is trileaflet, no stenosis and no regurgitation. Themitral valve is sclerotic, trace mitral regurgitation. Normal diastolicfunction. The tricuspid valve is normal in structure, trace tricuspidregurgitation. Unable to assess right ventricular systolic pressure. Thepulmonic valve is normal. Trace pulmonary regurgitation. Masses, Effusion, Shunts There is no pericardial effusion. The inferior vena cava is normal sized,respiratory size variation greater than 50%. Agitated saline injectionshowed no right to left shunt at rest or following Valsalva manuever. Noleft to right shunting was detected by limited color flow Dopplerinterrogation of the interatrial septum. MEASUREMENTS AND CALCULATIONS 2-D Measurements and LV Function: LVID (d) 4.0 cm LV FS% (2D) 33 % LVID (s) 2.7 cm LVOT diameter 2.0 cm IVS (d) 1.3 cm HR 71 bpm LVPW (d) 1.0 cm LA Vol index 24 ml/m2 Ao Sinus 3.0 cm RA area 13 cm Ao Sinus ULN 3.6 cm RV Basal Diam 3.4 cm Asc Ao 3.4 cm RV Mid Diam 2.9 cm Asc Ao ULN 3.6 cm Diastology: Mitral Tissue Doppler E Peak 0.9 m/s e', Septum 0.05 m/s A Peak 0.8 m/s e', Lateral 0.11 m/s E/A 1.2 E/e' Average 11.33 DT 161 msec Aortic Valve: Vmax 1.4 m/s JEROMY (V) 2.66 cm VTI 0.27 m JEROMY (I) 2.59 cm LVOT V max 1.2 m/s Max PG 8 mmHg LVOT VTI 0.22 m Mean PG 4 mmHg SV 70 ml Dim Index 0.82 SV index 42 ml/m CO 5.0 l/min CI 3.0 l/min/m Mitral Valve: MVA 4.7 cm MV P 1/2 47 msec Tricuspid Valve and estimated PA pressures: TAPSE 2.9 cm . This study was interpreted by an [facility] accredited facility. Final us Anne-Marie Means MD ECHO ORD Final Resul t * SCAN-CARDIAC STRIP (07/19/2025 8:09 AM CDT) us Scanner OTHER Final Result * (ABNORMAL) CBC WITH AUTO DIFFERENTIAL (07/19/2025 5:31 AM CDT) [facility] WHITE BLOOD COUNT 7.3 4.5 - 11.0 thou/cu mm 07/19/2025 6:15 AM CDT [facility] RED BLOOD COUNT 4.21 4.00 - 5.20 mil/cu mm 07/19/2025 6:15 AM [facility] HEMOGLOBIN 13.3 12.0 - 16.0 g/dL 07/19/2025 6:15 AM [facility] HEMATOCRIT 38.2 33.0 - 51.0 % 07/19/2025 6:15 AM [facility] MCV 91 80 - 100 fL 07/19/2025 6:15 AM [facility] MCH 31.6 26.0 - 34.0 pg 07/19/2025 6:15 AM [facility] MCHC 34.8 32.0 - 36.0 g/dL 07/19/2025 6:15 AM [facility] RDW 11.8 11.5 - 15.5 % 07/19/2025 6:15 AM [facility] PLATELET COUNT 214 140 - 440 thou/cu mm 07/19/2025 6:15 AM [facility] MPV 9.3 6.5 - 11.0 fL 07/19/2025 6:15 AM [facility] NRBC 0.0 % 07/19/2025 6:15 AM [facility] ABS NRBC 0.0 thou /cu mm 07/19/2025 6:15 AM [facility] % NEUT 44.3 % 07/19/2025 6:15 AM [facility] % LYMPH 44.5 % 07/19/2025 6:15 AM [facility] % MONO 8.5 % 07/19/2025 6:15 AM [facility] % EOS 2.1 % 07/19/2025 6:15 AM [facility] % BASO 0.3 % 07/19/2025 6:15 AM [facility] % IMMATURE GRAN (METAS,MYELOS,KS OS) 0.3 % 07/19/2025 6:15 AM CDT [facility] ABSOLUTE NEUTROPHILS 3.2 1.7 - 7.0 thou/cu mm 07/19/2025 6:15 AM CDT [facility] ABSOLUTE LYMPHOCYTES 3.3(H) 0.9 - 2.9 thou/cu mm 07/19/2025 6:15 AM CDT [facility] ABSOLUTE MONOCYTES 0.6 <0.9 thou/cu mm 07/19/2025 6:15 AM CDT [facility] ABSOLUTE EOSINOPHILS 0.2 <0.5 thou/cu mm 07/19/2025 6:15 AM CDT [facility] ABSOLUTE BASOPHILS 0.0 <0.3 thou/cu mm 07/19/2025 6:15 AM CDT [facility] ABSOLUTE IMMATURE GRANULOCYTES(MET ,MYELOS,PROS) 0.0 <0.3 thou/cu mm 07/19/2025 6:15 AM CDT [facility] Blood BLOOD SPECIMEN / Unknown Venipuncture / Unknown 07/19/2025 5:31 AM CDT 07/19/2025 5:45 AM CDT us Anne-Marie Means MD HEMATOLOGY Final Resul t [facility] [address] [place] [id number], * (ABNORMAL) Hemoglobin A1C Screening (07/19/2025 5:31 AM CDT) HEMOGLOBIN A1C SCREENING 7.3(H) <=6.4 % 07/19/2025 3:44 PM CDT [facility] Blood BLOOD SPECIMEN / Unknown Venipuncture / Unknown 07/19/2025 5:31 AM CDT 07/19/2025 5:45 AM CDT Narrative [facility] - 07/19/2025 3:44 PM CDT (<5.7%) Normal (5.7% to 6.4%) Indicates prediabetes (>=6.5%) Confirms diabetes Falsely low levels may be seen with: Recent Transfusion, Recent Significant Blood Loss, Hemolytic Diseases, or Falsely elevated levels may be seen with: Untreated Anemias, Splenectomy Anne-Marie Means MD CHEMISTRY Final Resul t Performing Organization Address City/[facility]/ZIP Co de Phone Number [facility] [address] [place] [address], * aPTT (07/19/2025 5:31 AM CDT) APTT 30 25 - 36 sec 07/19/2025 6:00 AM CDT [facility] Blood BLOOD SPECIMEN / Unknown Venipuncture / Unknown 07/19/2025 5:31 AM CDT 07/19/2025 5:45 AM CDT [facility] LAB[facility] - 07/19/2025 6:00 AM CDT Therapeutic Range: 59-89 seconds Anne-Marie Means MD HEMATOLOGY Final Resul t Performing Organization Address City/[facility] Co de Phone Number [facility] [address] * (ABNORMAL) Protime - INR (07/19/2025 5:31 AM CDT) INR 1.1 <1.3 07/19/2025 6:00 AM CDT [facility] PROTIME 12.9(H) 10.6 - 12.4 sec 07/19/2025 6:00 AM CDT [facility] Blood BLOOD SPECIMEN / Unknown Venipuncture / Unknown 07/19/2025 5:31 AM CDT 07/19/2025 5:45 AM CDT [facility] LAB[facility] - 07/19/2025 6:00 AM CDT Therapeutic Range 2.0-3.0 for most anticoagulated patients 2.5-3.5 or 4.0 for high risk patients The INR is only used for patients on stable oral anticoagulant therapy. It makes no significant contribution to the diagnosis or treatment of patients whose Protime is prolonged for other reasons. INR results are increased when heparin levels exceed 1.0 U/mL, which corresponds to an aPTT >125 seconds if the patient is on UFH. Anne-Marie Means MD HEMATOLOGY Final Resul t [facility] [address] [place] [address], * (ABNORMAL) Lipid Panel (07/19/2025 5:31 AM CDT) [facility] CHOLESTEROL,TOTAL 144 100 - 199 mg/dL 07/19/2025 6:22 AM CDT [facility] Comment: Cholesterol, Total Reference Ranges Desirable <200 mg/dL Borderline 200-239 mg/dL High >=240 mg/dL TRIGLYCERIDES 177(H) <150 mg/dL 07/19/2025 6:22 AM CDT [facility] HDL CHOLESTEROL 28(L) >40 mg/dL 6:22 AM CDT [facility] NON-HDL CHOLESTEROL 116 <145 mg/dl 07/19/2025 6:22 AM CDT [facility] CHOL/HDL RATIO 5.14(H) <4.50 07/19/2025 6:22 AM CDT [facility] LDL CHOLESTEROL 81 <=130 mg/dL 07/19/2025 6:22 AM CDT [facility] VLDL CHOLESTEROL 35(H) <=30 mg/dL 07/19/2025 6:22 AM CDT [facility] PROVIDER ORDERED STATUS RANDOM 07/19/2025 6:22 AM CDT [facility] Blood BLOOD SPECIMEN / Unknown Venipuncture / Unknown 07/19/2025 5:31 AM CDT 07/19/2025 5:45 AM CDT Anne-Marie Means MD CHEMISTRY Final Resul t [facility] [address] [place] [address], * (ABNORMAL) BASIC METABOLIC PANEL (07/19/2025 5:31 AM CDT) SODIUM 139 136 - 145 mmol/L 07/19/2025 6:22 AM CDT [facility] POTASSIUM 3.8 3.5 - 5.1 mmol/L 07/19/2025 6:22 AM CDT [facility] CHLORIDE 103 98 - 107 mmol/L 07/19/2025 6:22 AM CDT [facility] CO2,TOTAL 25 22 - 29 mmol/L 07/19/2025 6:22 AM CDT [facility] ANION GAP 11 5 - 18 07/19/2025 6:22 AM T [facility] GLUCOSE 116(H) 70 - 99 mg/dL 07/19/2025 6:22 AM T [facility] CALCIUM 9.1 8.8 - 10.4 mg/dL 07/19/2025 6:22 AM T [facility] Comment: Reference ranges for this test were updated on 08/22/2024 to reflect our healthy population more accurately. Reference range changes are not retroactively applied to results, but previous results using the same methodology can be interpreted in the context of the new reference range. BUN 9 6 - 20 mg/dL 07/19/2025 6:22 AM CDT [facility] CREATININE 0.72 0.50 - 0.90 mg/dL 07/19/2025 6:22 AM T [facility] BUN/CREAT RATIO 13 10 - 20 6:22 AM T [facility] eGFR >90 >90 mL/min/1. 73m2 07/19/2025 6:22 AM T [facility] Comment:As of 2021, eG FR is calculated by the CKD-EPI creatinine equation without race adjustment. eGFR can be influenced by muscle mass, exercise, and diet. The reported eGFR is an estimation only and is only applicable if the renal function is stable. Blood BLOOD SPECIMEN / Unknown Venipuncture / Unknown 07/19/2025 5:31 AM CDT 07/19/2025 5:45 AM CDT Elver Bucio MD CHEMISTRY Final Result Performing Organization Address [facility] de Phone Number [facility]-CENTRAL LABORATORY [address] [place] [address], [place] * SCAN-CARDIAC STRIP (07/18/2025 11:15 PM CDT) us Scanner OTHER Final Result * 12 Lead EKG (07/18/2025 11:12 PM CDT) Interpretation Normal sinus rhythm Normal ECG No previous ECGs available BEYOND NOW Ventricular Rate 75 BPM BEYOND NOW Atrial Rate 75 BPM BEYOND NOW P-R Interval 208 ms BEYOND NOW QRS Duration 90 ms BEYOND NOW QT 382 ms BEYOND NOW QTc 426 ms BEYOND NOW P [place] 43 degrees BEYOND NOW R [place] 31 degrees BEYOND NOW T [place] 34 degrees BEYOND NOW 07/18/2025 11:1 2 PM CDT 07/19/2025 6:05 PM CDT us Elver Bucio MD EKG ORD Final Result Performing Organization Address [facility] de Phone Number BEYOND NOW [place], [place] * XR MAMMO VAN BILAT SCREEN (08/20/2021 [...] lymph node. LEFT Breast: No suspicious findings. us Oliva Ca MD MAMMO Final Resul t * FIELD PARTY MANAGER THIN PREP PAP SCREEN IMAGED [[id number]] (03/05/2021 11:34 AM CDT) Case Report Gynecologic Cytology Report Case: [id number] Authorizing Provider: Oliva Ca MD Collected: 03/05/2021 1134 Ordering Location: [facility] Received: 03/05/2021 1244 Clinic First Screen: Ashleigh Bradley Specimen: FIELD PARTY MANAGER ThinPrep Vial Screening, Cervical 03/14/2021 11:00 AM CDT [facility] INTERPRETATION/ RESULT NEGATIVE FOR INTRAEPITHELIAL LESION OR MALIGNANCY (NIL) (none) 03/14/2021 11:00 AM CDT [facility] EN[facility]AL LABORATORY at 1100 CDT ORGANISM(S) Fungal organisms morphologically consistent with Марина species 03/14/2021 11:00 AM CDT [employer] LABORATORY-C ENTRAL LABORATORY SPECIMEN ADEQUACY Satisfactory for evaluation Endocervical component present 03/14/2021 11:00 AM CDT [facility] HPV REQUEST HPV and PAP 03/14/2021 11:00 AM CDT [facility] Date of LMP 11/08/2020 03/14/2021 11:00 AM T [facility] ENTRAL LABORATORY Last Pap Date 2013 03/14/2021 11:00 AM T [facility] Last Pap Result NIL 11:00 AM CDT [facility] EN[facility] LAB[facility]ORY Abnormal Pap or [place] Bx in last 5 years No 03/14/2021 11:00 AM T [facility] Menstrual Status Regular Periods 03/14/2021 11:00 AM CDT [facility] [place] Bx Done Today No 03/14/2021 11:00 AM T [facility] Additional Information None given 03/14/2021 11:00 AM T [facility] LABORATORY Comment: Cytology is screened at [facility] - [address], [place] [address] and [facility] - [address] [place] [address] and [facility] - [address] [place] [address] Interpreted at [facility] - [address], [place] [address] Automated Review Successful 03/14/2021 11:00 AM T [facility] Comment:Specimen processed s uccessfully by automated senior shipping clerk device, [employer] Imaging System, [place] [employer] ANCILLARY TESTING FIELD PARTY MANAGER HPV Ordered, Please see separate report 03/14/2021 11:00 AM [facility] Note The pap test is [...] and malignant lesions. 03/14/2021 11:00 AM T [facility] LAB[facility] Other (Cervical) Non-Blood / Unknown 03/05/2021 11:34 AM CDT 03/05/2021 12:44 PM CDT us Oliva Ca MD PATHOLOGY/CYTOLOGY Final Re sult [facility]-CENTRAL LABORATORY [address] [place] [address], [place] * ANTI HCV (11/03/2013 12:33 PM ASSOCIATE SCHOOL PSYCHOLOGIST) ANTI HCV Non-reacti ve [facility] Blood specimen (specimen) BLOOD SPECIMEN / Unknown 11/03/2013 12:33 PM ASSOCIATE SCHOOL PSYCHOLOGIST 11/03/2013 12:13 PM ASSOCIATE SCHOOL PSYCHOLOGIST us Karen [employer] SEND OUTS Final Resu lt [facility] LAB[facility]ORY [place]NAL ZIP [id number] [place] [address] * ANTI HIV 1/2 (10/20/2007 2:07 PM ASSOCIATE SCHOOL PSYCHOLOGIST) ANTI HIV 1/2 Non-reacti ve [facility] Blood specimen (specimen) BLOOD SPECIMEN / Unknown 10/20/2007 2:07 PM ASSOCIATE SCHOOL PSYCHOLOGIST 10/20/2007 1:59 PM ASSOCIATE SCHOOL PSYCHOLOGIST us Matt Barroso MD SEND OUTS Final Re sult [facility] INTERNAL ZIP [id number] [address] from Last 3 Months or Most Recently Relevant to Health Maintenance Insurance [employer] Advance Directives * Full Code (Latest Code Status on File) Date Activated Date Inactivated Comments 07/19/2025 2:27 PM 07/21/2025 1:04 PM Question Answer Comments Code Status Discussion: Reviewed Preferences * Full Code Date Activated Date Inactivated Comments 07/18/2025 10:59 PM 07/19/2025 2:27 PM Question Answer Comments Code Status Discussion: Unable to Assess Preferences, Provider to review later Care Teams Silver Solderer Relationship Specialty Start Date End Date Matt Barroso MD [address] [place] [address] PCP - General Family Practice 07/20/25
[2025-07-31 20:39] VITALS: BP 183/108; PULSE 72; RESP 16; TEMP 36.2; O2SAT 100; BMI 31.1
--- NOTE | 2025-07-31 20:55 | ED.GENADULT ---
HPI - General Adult General Time Seen by Provider: 20:55 Date Seen: 07/31/25 Chief complaint: Hypertension Stated complaint: High blood pressure Time Seen by Provider: 07/31/25 20:55 Source: patient Mode of arrival: ambulatory Limitations: no limitations History of Present Illness HPI narrative: 50-year-old female who presents today with concern for elevated blood pressure. Patient was treated with tPA for an acute stroke on July 18, MRI negative in symptoms largely resolved. Tonight he felt a little lightheaded and some tingling in the right side of the face and so checked her blood pressure, it was 170/100 and so she came to the emergency department. No chest pain, denies weakness. Feeling better now although still having a little tingling on the right side of the face. Related Data Home Medications ?Medication ?Instructions ?Recorded ?Confirmed aspirin 81 mg tablet,delayed 81 mg PO QDAY 11/09/22 07/23/25 release blood sugar diagnostic (Contour #10 ea 08/09/23 07/23/25 Next Test Strips) cranberry 500 mg capsule 500 mg PO QDAY 08/07/24 07/23/25 atorvastatin 80 mg tablet 80 mg PO DAILY 07/23/25 07/31/25 clopidogrel 75 mg tablet 75 mg PO DAILY 07/23/25 07/31/25 levothyroxine 125 mcg tablet 125 mcg PO QDAY 07/23/25 07/31/25 Previous Rx's ?Medication ?Instructions ?Recorded omeprazole 20 mg capsule,delayed 20 mg PO QDAY #90 caps 02/11/24 release bupropion HCl 300 mg 24 hr tablet, 300 mg PO QDAY #90 tabs 12/01/24 extended release epinephrine 0.3 mg/0.3 mL 0.3 ml IM ONCE #2 ea 12/01/24 injection, auto-injector blood-glucose sensor (Dexcom G7 #2 ea 12/11/24 Sensor device) insulin aspart U-100 100 unit/mL 15 unit (0.15 mL) subcut TID #60 mL 03/09/25 (3 mL) subcutaneous pen (Novolog FlexPen U-100 Insulin aspart) metoprolol succinate 100 mg 100 mg PO QDAY #90 tabs 03/27/25 tablet,extended release 24 hr metformin 500 mg tablet,extended 1,000 mg (2 x 500 mg) PO BID #360 04/18/25 release 24 hr tabs insulin degludec 200 unit/mL (3 70 unit (0.35 mL) subcut QDAY #45 04/27/25 mL) subcutaneous pen (Tresiba mL FlexTouch U-200 insulin) tirzepatide 7.5 mg/0.5 mL 7.5 mg (0.5 mL) subcut QWEEK #2 mL 06/05/25 subcutaneous pen injector lisinopril 10 mg tablet 10 mg PO QDAY #90 tabs 07/23/25 Allergies Allergy/AdvReac Type Severity Reaction Status Date / Time azithromycin Allergy Mild Unknown Verified 07/23/25 16:07 Cephalosporins Allergy Mild Unknown Verified 07/23/25 16:07 nitrofurantoin (From Allergy Mild Unknown Verified 07/23/25 16:07 Macrobid) Penicillins Allergy Mild Unknown Verified 07/23/25 16:07 Sulfa (Sulfonamide Allergy Hives Verified 07/23/25 16:07 Antibiotics) PFSH [facility] Medical History GERD (gastroesophageal reflux disease) ?K21.9 - Gastro-esophageal reflux disease without esophagitis (ICD-10) Primary hypertension ?I10 - Essential (primary) hypertension (ICD-10) Mixed hyperlipidemia ?E78.2 - Mixed hyperlipidemia (ICD-10) Type 2 diabetes mellitus, with long-term current use of insulin ?E11.9 - Type 2 diabetes mellitus without complications (ICD-10) ?Z79.4 - 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 (ICD-10) History of vitamin D deficiency ?Z86.39 - Personal history of other endocrine, nutritional and metabolic disease (ICD-10) Vitamin D deficiency ?E55.9 - Vitamin D deficiency, unspecified (ICD-10) Hypothyroidism ?E03.9 - Hypothyroidism, unspecified (ICD-10) Polycystic ovarian syndrome ?E28.2 - Polycystic ovarian syndrome (ICD-10) Bipolar 1 disorder ?F31.9 - Bipolar disorder, unspecified (ICD-10) Family History Father Heart disease Diabetes Grandmother Lung cancer 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: , 4 kids, 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 Social EtOH What is your current living situation?: I presently have a place to live Problems where you live: no known problems In the past 12 months, utilities in danger of being shut off: no In past 12 months, lack of transportation kept you from medical appts, meetings, work, or getting things needed for daily living: no In the past 12 mos, have been you worried that your food would run out before you had money to buy more?: never true In the past 12 mos, the food you bought just didn't last and you didn't have money to buy more?: never true Smoking Status: Former smoker Do you use any of these nicotine containing products: None Second hand tobacco smoke exposure: No How often do you have a drink containing alcohol: never How often do you have six or more drinks on one occasion: Never AUDIT-C Alcohol total score: 0 Non-prescribed substance use: denies use How often does anyone, including family, friends and others, physically hurt you: never How often does anyone, including family, friends and others, insult or talk down to you: rarely How often does anyone, including family, friends and others, threaten you with harm: never How often does anyone, including family, friends and others, scream or curse at you: never service: No Health Related Social Needs: Other personal risk factors, not elsewhere classified (Z91.89) Exam Narrative: Exam Narrative: General: Well-developed and well-nourished, no acute distress Head: Atraumatic and normocephalic Eyes: Pupils are equal reactive, extraocular motions intact, conjunctiva clear ENT: External nose and ears are normal, posterior pharynx without erythema or exudate Neck: No midline cervical tenderness, full spontaneous range of motion the neck, trachea midline, no adenopathy Heart: Regular rate and rhythm no murmurs or thrills Lungs: Clear to auscultation bilaterally without wheezes or crackles Abdomen: Soft, nontender, nondistended with active bowel sounds Musculoskeletal: No tenderness, deformity, or edema Neurologic: Awake, alert, and oriented x3, no gross focal neurologic deficits, cranial nerves intact as tested Psych: Mood and affect are appropriate Skin: No rashes Const: Vital Signs, click to edit/add: Vital Signs - 24 hr 07/31/25 20:39 07/31/25 22:15 Temperature 97.2 F L Pulse Rate [Pulse Oximeter] 72 72 Respiratory Rate 16 16 Blood Pressure [Ri t Upper Arm] 183/108 H 155/91 H Pulse Oximetry 100 98 Oxygen Delivery Me thod Room Air Room Air Course Course ED Course: Reviewed most recent hospital admission from a July 18 which was for an acute stroke, treated with tPA. At that time symptoms or dizziness, headache, mild left upper extremity weakness and drift and gait imbalance. At time of discharge, patient still felt she had some weakness of the left arm. MRI negative. Patient seen examined, presents today with elevated blood pressure and tingling on the right side of the face in the setting of acute CVA on July 18. Patient reports she she had some lightheadedness early as well but that is better. On exam here patient is hypertensive with blood pressure 183/108. No focal neurologic deficits although reports still feeling some tingling in the right jaw area. Will monitor in the emergency department, head CT ordered to evaluate for possible intracranial bleed related to recent stroke although MRI was negative. Will monitor pressure for now. Reevaluation(s) Time of Reevaluation #1: 22:27 Reevaluation #1: Care discussed with Dr. Bashir, neurology, recommends MRI which can be done in the morning. Updated patient with plan for admission. Care discussed with Dr. Snider, hospitalist. Vital Signs Vital signs: Initial Vital Signs Temperature 97.2 F L 07/31/25 20:39 Temperature Source Temporal Artery Scan 07/31/25 20:39 Pulse Rate 72 07/31/25 20:39 Respiratory Rate 16 07/31/25 20:39 Blood Pressure 183/108 H 07/31/25 20:39 Blood Pressure Mean 133 H 07/31/25 20:39 Blood Pressure Position Sitting 07/31/25 20:39 Pulse Oximetry 100 07/31/25 20:39 Oxygen Delivery Method Room Air 07/31/25 20:39 Vital Signs Temperature 97.2 F L 07/31/25 20:39 Pulse Rate 72 07/31/25 20:39 Respiratory Rate 16 07/31/25 20:39 Blood Pressure 183/108 H 07/31/25 20:39 Pulse Oximetry 100 07/31/25 20:39 Oxygen Delivery Method Room Air 07/31/25 20:39 Temperature 97.2 F L 07/31/25 20:39 Pulse Rate 72 07/31/25 22:15 Respiratory Rate 16 07/31/25 22:15 Blood Pressure 155/91 H 07/31/25 22:15 Pulse Oximetry 98 07/31/25 22:15 Oxygen Delivery Method Room Air 07/31/25 22:15 Medical Decision Making Lab Data Labs: Lab Results 07/31/25 Range/Units 21:15 Sodium 131 L (135-149) mmol/L Potassium 3.9 (3.6-5.1) mmol/L Chloride 92 L (96-114) mmol/L Carbon Dioxide 31 (20-32) mmol/L Anion Gap 8 (7-15) mEq/L BUN 8 (7-30) mg/dL Creatinine 0.7 (0.5-1.5) mg/dL Estimated Creat Clear 69.06 Estimated GFR 105 ml/min Glucose 141 H (60-115) mg/dL Calcium 9.7 (8.4-10.6) mg/dL Discharge Plan Discharge Clinical Impression: Mixed hyperlipidemia, Primary hypertension, Type 2 diabetes mellitus, with long-term current use of insulin, Facial paresthesia Patient Disposition: Admitted As Observation
--- NOTE | 2025-07-31 21:07 | CRLHL7_ITS ---
For Patients: As a result of the Cures Act, medical imaging exams and procedure reports are released immediately into your electronic medical record. You may view this report before your referring provider. If you have questions, please contact your health care provider. INDICATION: Recent tPA, facial numbness. COMPARISON: CT head 07/18/2025. TECHNIQUE: CT of the head without IV contrast. Coronal and sagittal reconstructions. FINDINGS: Brain: No intracranial hemorrhage, abnormal extra-axial fluid collection, or evidence of acute infarct. No mass effect or midline shift. Normal caliber ventricular system. Skull base and calvarium: The visualized paranasal sinuses and mastoid air cells are clear. The visualized orbits are grossly unremarkable. No acute fracture identified. Soft tissues: Unremarkable. IMPRESSION: No acute intracranial findings. Please note that all CT scans at this facility use dose modulation, iterative reconstruction, and/or weight-based dosing when appropriate to reduce radiation dose to as low as reasonably achievable. Dictated by Lilo Rajan MD @ 07/31/2025 9:51:13 PM (Electronically Signed)
[2025-07-31 21:38] LABS: Chloride* 92 mmol/L (96-114); Potassium* 3.9 mmol/L (3.6-5.1); Sodium* 131 mmol/L (135-149)
[2025-07-31 21:41] LABS: Anion Gap 8 mEq/L (7-15); Blood Urea Nitrogen* 8 mg/dL (7-30); Calcium* 9.7 mg/dL (8.4-10.6); Carbon Dioxide* 31 mmol/L (20-32); Creatinine* 0.7 mg/dL (0.5-1.5); Est. Creatinine Clearance* 69.06; Estimated Glomerular Filt Rate 105 ml/min; Glucose* 141 mg/dL (60-115)
[2025-07-31 22:15] VITALS: BP 155/91; PULSE 72; RESP 16; O2SAT 98
[2025-07-31 23:12] VITALS: BP 154/103; PULSE 70; RESP 16; O2SAT 97
[2025-08-01] VITALS (7 sets, daily range): BP systolic 126–156; BP diastolic 78–98; PULSE 67–73; RESP 16–20; TEMP 35.3–36.7; O2SAT 97–99; BMI 31.4; BMI 31.5
--- NOTE | 2025-08-01 01:09 | W.PM.TELEH&P ---
Telehealth- H&P: HPI History of Present Illness Date Seen: 08/01/25 Chief complaint: High blood pressure Narrative: Britany Balderas is seen as an Interactive Telehealth visit. Britany Balderas is a 50 year old female who is experincin right jaw numbness. Patient came to the ED on 07/18 with dizziness, weakness, and trouble ambulating. she also reported a headache. she underwent a stroke workup and was seen by stroke neuro. Imaging was unremarkable for occlusion or hemorrhage. She was given TNKase and transferred to [place] for further workup/evaluation. Despite having imaging that was negative for stroke, patient was given the diagnosis. She was given DAPT, statin, metoprolol and lisinopril. She returns this evening with elevated blood pressure and right jaw numbness. She reports feeling off with numbness to right jaw. She reports headache, mild dizziness, and abdominal pain. She checked her BP and found it was 171/91. Concerned she came to ED where her BP was found to be 180/100. With time her blood pressure improved and numbness resolved as well. her other symptoms also resolved. Neuro stroke was contacted and recommended MRI No numbness/tingling no dysphagia, no difficulty with ambulation has residual Left hand odd sensation from 07/18 event no chest pain no diarrhea, constipation, melena, hematochezia No heart racing sensation No tobacco in 15 years No ETOH since 07/18 event no recreational drug use Review of Systems Status of ROS: Reports: 10 or more systems reviewed and unremarkable except as noted in History and below [facility] Medical History GERD (gastroesophageal reflux disease) ?K21.9 - Gastro-esophageal reflux disease without esophagitis (ICD-10) Primary hypertension ?I10 - Essential (primary) hypertension (ICD-10) Mixed hyperlipidemia ?E78.2 - Mixed hyperlipidemia (ICD-10) Type 2 diabetes mellitus, with long-term current use of insulin ?E11.9 - Type 2 diabetes mellitus without complications (ICD-10) ?Z79.4 - terminal worker (current) use of insulin (ICD-10) History of vitamin D deficiency ?Z86.39 - Personal history of other endocrine, nutritional and metabolic disease (ICD-10) Vitamin D deficiency ?E55.9 - Vitamin D deficiency, unspecified (ICD-10) Hypothyroidism ?E03.9 - Hypothyroidism, unspecified (ICD-10) Polycystic ovarian syndrome ?E28.2 - Polycystic ovarian syndrome (ICD-10) Bipolar 1 disorder ?F31.9 - Bipolar disorder, unspecified (ICD-10) Family History Father Heart disease Diabetes Grandmother Lung cancer 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: , 4 kids, 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 Social EtOH What is your current living situation?: I presently have a place to live Problems where you live: no known problems In the past 12 months, utilities in danger of being shut off: no In past 12 months, lack of transportation kept you from medical appts, meetings, work, or getting things needed for daily living: no In the past 12 mos, have been you worried that your food would run out before you had money to buy more?: never true In the past 12 mos, the food you bought just didn't last and you didn't have money to buy more?: never true Smoking Status: Former smoker Do you use any of these nicotine containing products: None Second hand tobacco smoke exposure: No How often do you have a drink containing alcohol: never How often do you have six or more drinks on one occasion: Never AUDIT-C Alcohol total score: 0 Non-prescribed substance use: denies use How often does anyone, including family, friends and others, physically hurt you: never How often does anyone, including family, friends and others, insult or talk down to you: rarely How often does anyone, including family, friends and others, threaten you with harm: never How often does anyone, including family, friends and others, scream or curse at you: never service: No Health Related Social Needs: Other personal risk factors, not elsewhere classified (Z91.89) Meds Home Medications and Allergies Home Medications ?Medication ?Instructions ?Recorded ?Confirmed ?Type aspirin 81 mg tablet,delayed 81 mg PO QDAY 11/09/22 07/23/25 History release blood sugar diagnostic (Contour #10 ea 08/09/23 07/23/25 History Next Test Strips) omeprazole 20 mg capsule,delayed 20 mg PO QDAY #90 caps 02/11/24 07/31/25 Rx release cranberry 500 mg capsule 500 mg PO QDAY 08/07/24 07/23/25 History bupropion HCl 300 mg 24 hr tablet, 300 mg PO QDAY #90 tabs 12/01/24 07/31/25 Rx extended release epinephrine 0.3 mg/0.3 mL 0.3 ml IM ONCE #2 ea 12/01/24 07/31/25 Rx injection, auto-injector blood-glucose sensor (Dexcom G7 #2 ea 12/11/24 07/23/25 Rx Sensor device) insulin aspart U-100 100 unit/mL 15 unit (0.15 mL) subcut TID #60 mL 03/09/25 07/31/25 Rx (3 mL) subcutaneous pen (Novolog FlexPen U-100 Insulin aspart) metoprolol succinate 100 mg 100 mg PO QDAY #90 tabs 03/27/25 07/31/25 Rx tablet,extended release 24 hr metformin 500 mg tablet,extended 1,000 mg (2 x 500 mg) PO BID #360 04/18/25 07/31/25 Rx release 24 hr tabs insulin degludec 200 unit/mL (3 70 unit (0.35 mL) subcut QDAY #45 04/27/25 07/31/25 Rx mL) subcutaneous pen (Tresiba mL FlexTouch U-200 insulin) tirzepatide 7.5 mg/0.5 mL 7.5 mg (0.5 mL) subcut QWEEK #2 mL 06/05/25 07/31/25 Rx subcutaneous pen injector atorvastatin 80 mg tablet 80 mg PO DAILY 07/23/25 07/31/25 History clopidogrel 75 mg tablet 75 mg PO DAILY 07/23/25 07/31/25 History levothyroxine 125 mcg tablet 125 mcg PO QDAY 07/23/25 07/31/25 History lisinopril 10 mg tablet 10 mg PO QDAY #90 tabs 07/23/25 07/31/25 Rx Allergies Allergy/AdvReac Type Severity Reaction Status Date / Time azithromycin Allergy Mild Unknown Verified 07/23/25 16:07 Cephalosporins Allergy Mild Unknown Verified 07/23/25 16:07 nitrofurantoin (From Allergy Mild Unknown Verified 07/23/25 16:07 Macrobid) Penicillins Allergy Mild Unknown Verified 07/23/25 16:07 Sulfa (Sulfonamide Allergy Hives Verified 07/23/25 16:07 Antibiotics) Exam Narrative Exam Narrative: Physical Exam GENERAL: ?vital signs reviewed, well developed and nourished, in no distress HEENT: pupils are equal round and reactive to light, extraocular movements are grossly within normal limits and oral mucosa is moist. NO LAD NECK: Supple without lymphadenopathy or thyromegaly according to nursing staff examination observation HEART: Regular rate and rhythm without any rubs, murmurs, or gallops. LUNGS: Clear to auscultation bilaterally with good air movement throughout ABDOMEN: Observation from nurse assisted exam, abdomen appears soft, nontender, and nondistended with Positive bowel sounds noted. EXTREMITIES: Strength and sensation is observed to be grossly within normal limits in the upper and lower extremities.? No focal strength deficit is observed. No cyanosis, clubbing edema tenderness noted Neuro: CN 2-12 grossly intact; moving all four extremities equally no focal deficit apprecaited SKIN:? Observed warm and dry with color normal Const Vital Signs, click to edit/add: Vital Signs - 24 hr 07/31/25 20:39 07/31/25 22:15 07/31/25 23:12 Temperature 97.2 F L Pulse Rate [Pulse Oximeter] 72 72 70 Respiratory Rate 16 16 16 Blood Pressure [Right Upper Arm] 183/108 H 155/91 H 154/103 H Pulse Oximetry 100 98 97 Oxygen Delivery Method Room Air Room Air Room Air Hospitalist - H&P: Result Labs Labs: [facility] 07/31/25 21:15 Sodium 131 L Potassium 3.9 Chloride 92 L Carbon Dioxide 31 BUN 8 Creatinine 0.7 Glucose 141 H Calcium 9.7 ECG ECG interpretation date: 08/01/25 ECG interpretation time: 01:35 Interpretation: NSR with flattening t waves no ST changes Imaging CT scan - head: Attestation: I have reviewed the pertinent imaging results. Radiologist's impression: Brain: No intracranial hemorrhage, abnormal extra-axial fluid collection, or evidence of acute infarct. No mass effect or midline shift. Normal caliber ventricular system. Skull base and calvarium: The visualized paranasal sinuses and mastoid air cells are clear. The visualized orbits are grossly unremarkable. No acute fracture identified. Soft tissues: Unremarkable. IMPRESSION: No acute intracranial findings. Assessment and Plan Assessment and plan (1) Facial paresthesia: Status: Acute (2) Acute CVA (cerebrovascular accident): Status: Acute (3) Primary hypertension: Status: Acute (4) Mixed hyperlipidemia: Status: Acute (5) Type 2 diabetes mellitus, with long-term current use of insulin: Problem comment: 2000 Status: Acute (6) Bipolar 1 disorder: Status: Acute (7) Hypothyroidism: Status: Acute Plan 50y/o F presents with R facial numbness that is now improving. Neurostroke recommends an MRI in the morning. Per review of imaging, etiology is unclear. Possibly due to hypertension vs TIA (unclear as patient is on DAPT for possibly 07/18 stroke) vs unknown. As her BP improved in ED, her symptoms improved. --place on telemetry --monitor overnight --obtain an MRI in AM --patient recently had stroke workup at [place]. no need for repeat echocardiogram, CTA imaging at this time --check TSH if this was not done at [place]. --continue DAPT --continue statin --[facility]obic[facility]OF [facility], PATIENT STATED SHE DID NOT COMPLETE THE MRI AT [facility] DUE TO CLAUSTROPHOBIA) h/o diabetes mellitus: --place on SSI --await reconcilation of medications before administering lantus Elevated blood pressure: --await reconciliaiton of medications and will start antihhypertensives h/o hypothyroidism --check TSH IF NOT COMPLETED AT [facility] Full code per discussion hold on DVT prophy as patient is observation status Telehealth: Statement Statement Telehealth Visit: Today's History and Physical is provided via interactive telehealth by Felipa Dolan MD.? Patient is located at [facility].? Provider is located at [employer].? Nursing staff assisted with the patient's exam. The visit being done today meets criteria for a telehealth visit and the patient or patient?s parent/guardian is aware the visit is a telehealth visit.
--- NOTE | 2025-08-01 01:45 | CRLHL7_ITS ---
For Patients: As a result of the Century Cures Act, medical imaging exams and procedure reports are released immediately into your electronic medical record. You may view this report before your referring provider. If you have questions, please contact your health care provider. Indication: Right jaw numbness Technique: Multiplanar, multisequence MR images of the brain were obtained without the administration of IV contrast. Comparison: CT head July 31, [address] head July 18, 2025 and outside MRI July 19, 2025 Findings: On midline sagittal T1 images there are preserved flow voids within the sagittal sinuses. The corpus callosum is preserved in signal and contour. The pituitary gland is unremarkable without evidence of remodeling of the sella turcica. There is no significant cerebellar tonsillar ectopia. On diffusion-weighted sequences, there is no evidence of acute or subacute infarct. On blood sensitive sequences, there is no evidence of or chronic hemorrhage. There is moderate scattered nonspecific T2/FLAIR subcortical and periventricular hyperintensity with additional focal hyperintensities seen within the right rostrum of the corpus callosum with additional subtle perivenular FLAIR hyperintensities. The remaining brain parenchyma is otherwise preserved in signal intensity. The flow voids at the skull base are unremarkable. The orbits and their contents are within normal limits. The paranasal sinuses are clear. The mastoid air cells are clear. Impression: 1. Demonstration of a somewhat pathognomonic focal T2/FLAIR hyperintensity within the rostrum of the corpus callosum on series 4, image 24 as well as additional questionable perivenular T2/FLAIR hyperintensities. There are moderate scattered somewhat nonspecific subcortical and periventricular hyperintensities as well. Overall, these findings may represent sequela of autoimmune demyelination such as multiple sclerosis and/or sequela of prior vascular disorders such as migraines. Consider follow-up with MS protocol MRI with contrast for improved characterization. Otherwise, no evidence of acute intracranial abnormality or abnormal contrast enhancement. Findings were discussed with Dr. Mattson at 10:30 a.m. August 01, 2025 Dictated by Seun Camacho MD @ 08/01/2025 10:34:29 AM (Electronically Signed)
[2025-08-01] MEDS: ACETAMINOPHEN 325 MG TABLET 650 MG PO ×2 (02:49→11:46)
--- NOTE | 2025-08-01 05:38 | PC.NURSE ---
Patient admitted to the unit around 0130. Stroke like symptoms no longer present when arriving to the floor. A&Ox3. Denies chest pain. Tylenol administered for headache. Neuros unremarkable. Afebrile.
[2025-08-01] MEDS: CLOPIDOGREL 75 MG TABLET PO ×2 (08:16→08:17)
[2025-08-01] MEDS: SODIUM CHLORIDE 0.9 % (FLUSH) 10 ML SYRINGE 5 ML IVF (08:18)
[2025-08-01] MEDS: INSULIN ASPART 100 UNIT/ML SUBCUT ×2 (08:19→12:52)
--- NOTE | 2025-08-01 11:00 | P.DS_ITS ---
DS: Providers Provider Date Seen: 08/01/25 Date of admission: 08/01/25 01:12 Primary care physician: Matt Barroso MD Admitting Clinician: Alana Snider MD Consults: OT, PT Attending Physician on discharge: Kizzy Mattson MD Date of Discharge: 08/01/25 DS: Diagnosis Discharge Diagnosis (1) Facial paresthesia: Status: Acute Problem details: - presented with R jaw numbness, resolved during stay - MRI repeated on 08/01: small abnormality of R rostrum of corpus callosum (ddx includes sequela of vascular disorder/migraine vs MS) - that reviewed results with patient; baseline on hospital day one, comfortable with short interval outpatient imaging (MRI head and C-spine) and PCP f/u for results (2) Acute CVA (cerebrovascular accident): Status: Acute Problem details: - 07/18/25; presented with headache, dizziness, gait disturbance, treated with TNK and transferred to [facility] for ICU monitoring; discharged home 07/21 - LUE still feels clumsy from early July; evaluated by therapies who recommend outpatient PT and OT f/u (3) Primary hypertension: Status: Acute (4) Mixed hyperlipidemia: Status: Acute Problem details: - statin (5) Type 2 diabetes mellitus, with long-term current use of insulin: Status: Acute Problem details: - diagnosed 2000, IDDM2, A1C 7.4 on 06/05/25 (6) Bipolar 1 disorder: Status: Acute (7) Hypothyroidism: Status: Acute Problem details: - supratherapeutic TSH 08/01/25, f/u dosing with PCP DS: Summary Hospital Course Hospital Course: Britany is a 50-year-old female with a history of insulin-dependent DM, hypothyroidism essential hypertension, and recent hospitalization for CVA who presented to the emergency on 08/01/2025 for right jaw numbness. Her symptoms resolved in the emergency room; seen by Stroke Neurology who sloan mmended a repeat MRI given recent CVA and treatment with thrombolytic (transferred from [place] to [facility] on 07/18). MRI repeated 08/01/2025 with a small area in the corpus callosum dose concerning possible MS. Patient was back to baseline and comfortable with short interval followup for MRI of head and C-Spine; PCP notified and will see patient in f/u as well. Status at Discharge Functional status at discharge: independent ambulation Overall status at discharge: patient is progressing back to baseline Time Spent with Patient Time attestation: Total time spent providing and/or coordinating discharge services: Time spent: Greater than 30 minutes Specific discharge activities: Medication reconciliation, reviewing plan of care with patient, Radiology team, and PCP Exam Narrative: Exam Narrative: GEN: Alert and oriented, 1st noted sitting up in bed, then seen again in bedside chair HEENT: EOMIs bilaterally, no scleral icterus CV: RRR, No concerning murmurs R: LCTA bilaterally, no wheezing Ext: wwp, no concerning edema Skin: No concerning skin lesions or rashes on exposed skin Neuro: No facial droop, no resting tremor, normal rapid alternating movements are symmetric, 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, no apraxia of upper extremities noted Psych: Appropriate Const: Vital Signs, click to edit/add: Vital Signs - 24 hr 07/31/25 20:39 07/31/25 22:15 07/31/25 23:12 Temperature 97.2 F L Pulse Rate Pulse Rate [Pulse Oximeter] 72 72 70 Respiratory Rate 16 16 16 Blood Pressure [Ri ght Arm] Blood Pressure [Ri ght Upper Arm] 183/108 H 155/91 H 154/103 H Pulse Oximetry 100 98 97 Oxygen Delivery Me thod Room Air Room Air Room Air 08/01/25 01:22 08/01/25 01:22 08/01/25 01:46 Temperature 97.2 F L 98.0 F Pulse Rate Pulse Rate [Pulse Oximeter] 70 70 70 Respiratory Rate 16 16 Blood Pressure [Ri ght Arm] Blood Pressure [Ri ght Upper Arm] 156/90 H 156/90 H Pulse Oximetry 97 Oxygen Delivery Me thod Room Air 08/01/25 02:16 08/01/25 02:16 08/01/25 02:50 Temperature 95.6 F L 96.7 F L Pulse Rate 73 Pulse Rate [Pulse Oximeter] 67 70 Respiratory Rate 20 20 Blood Pressure [Ri ght Arm] 142/78 H 149/90 H Blood Pressure [Ri ght Upper Arm] Pulse Oximetry 97 98 Oxygen Delivery Me thod Room Air Room Air 08/01/25 06:31 08/01/25 07:45 08/01/25 07:45 Temperature 97.7 F Pulse Rate 71 Pulse Rate [Pulse Oximeter] 70 Respiratory Rate 18 Blood Pressure [Ri ght Arm] 126/98 H Blood Pressure [Ri ght Upper Arm] Pulse Oximetry 97 97 Oxygen Delivery Me thod Room Air 08/01/25 07:45 Temperature Pulse Rate Pulse Rate [Pulse Oximeter] 70 Respiratory Rate 18 Blood Pressure [Ri ght Arm] Blood Pressure [Ri ght Upper Arm] Pulse Oximetry Oxygen Delivery Me thod DS: Data Data Completed and Pending Labs on day of discharge: Labs from last 24 hours 07/31/25 21:15 Sodium 131 L Potassium 3.9 Chloride 92 L Carbon Dioxide 31 Anion Gap 8 BUN 8 Creatinine 0.7 Estimated Creat Clear 69.06 Estimated GFR 105 Glucose 141 H Calcium 9.7 Discharge Plan Discharge Disposition: Home, Self-Care Date of Admission: 08/01/25 01:12 Attending Provider on Discharge: Kizzy Mattson Primary Care Provider: Matt Barroso Condition: Improved Anticipated Discharge Date/Time: 08/01/25 10:46 Discharge Medications: New (DME) Dexcom G7 Sensor Device See Rx Instructions .Route Qty: 1 0RF Rx Instructions: As directed Continued omeprazole 20 mg capsule,delayed release(DR/EC) 20 mg PO QDAY Qty: 90 1RF cranberry 500 mg capsule 500 mg PO DAILY Rx Instructions: administer with meals atorvastatin 80 mg tablet 80 mg PO DAILY clopidogrel 75 mg tablet 75 mg PO DAILY levothyroxine 125 mcg tablet 125 mcg PO QDAY lisinopril 10 mg tablet 10 mg PO QDAY Qty: 90 0RF aspirin 81 mg tablet,delayed release (DR/EC) 81 mg PO DAILY multivitamin [Daily Multi-Vitamin] Tablet 1 tab PO DAILY epinephrine 0.3 mg/0.3 mL auto-injector 0.3 ml IM ONCE PRN Rx Instructions: as a single dose; may repeat once metformin 500 mg tablet extended release 24 hr 1,000 mg PO BIDWM insulin aspart U-100 [Novolog FlexPen U-100 Insulin] 100 unit/mL (3 mL) insulin pen 10 unit subcut TIDWM Rx Instructions: follows a sliding scale bupropion HCl 300 mg tablet extended release 24 hr 300 mg PO DAILY insulin degludec [Tresiba FlexTouch U-200] 200 unit/mL (3 mL) insulin pen 70 unit subcut QAM tirzepatide 7.5 mg/0.5 mL pen injector 7.5 mg subcut QWEEK metoprolol succinate 100 mg tablet extended release 24 hr 100 mg PO QDAY Qty: 90 1RF Discharge Orders: Discharge Order (Routine); Ordered 08/01/25 Ordered By: Kizzy Mattson Patient Education: Paresthesia (GEN) Additional Instructions: No changes to home medications; you could take your Metoprolol at night if you'd like to split up your BP medications. Your thyroid was a little OVERACTIVE, so you likely need to decrease your Synthr oid dose (or just take it 5 days/week instead of 7), Dr. Barroso can help you make this plan. The Radiologist noted a small spot on your MRI that could possibly be a sign of MS; he recommends further testing with more specialized MRIs. These have been ordered to be completed as an oupatient, and you will f/u with Dr. Barroso for results review and further followup/specialty referrals. You MUST return with any worsening symptoms, new Neurologic deficits or concerns (ie vision changes, weakness). Activity Level: Activity as Tolerated Discharge Diet: Regular and Diabetic Follow Up Appointments: Matt Barroso MD [Primary Care Provider, Family Practice] - 08/08/25 9:00 am Referral Note: [facility] for follow-up, (after MRIs are done). Forms: Patient Belongings, [facility] Info Instructions
== END 2025-08-01 13:23 | disposition home or self-care (01) ==
LOC: ED 22:39 → MEDSURG 08-01 01:13
PROVIDERS: Admitting Provider Family Medicine; Emergency Provider Family Medicine; PCP Family Medicine; Visit Provider Family Medicine
DX: R20.2 Paresthesia of skin (principal); I10 Essential (primary) hypertension; E78.2 Mixed hyperlipidemia; E11.9 Type 2 diabetes mellitus without complications; Z79.4 Long term (current) use of insulin; F31.9 Bipolar disorder, unspecified; E03.9 Hypothyroidism, unspecified; Z86.73 Personal history of transient ischemic attack (TIA), and cerebral infarction without residual deficits
CPT/HCPCS: 36415; 70450; 70551; 80048; 82962; 93005; 97116; 97162; 97165; 99285; A9270; G0378

== ENCOUNTER 2025-08-08 09:39 | Outpatient (CLI) | payer BC, SELFPAY | END 2025-08-08 09:40 | disposition home or self-care (01) | LOC: NFLDREF 08-11 16:20 | PROVIDERS: PCP Family Medicine; Referring Provider Family Medicine; Visit Provider Family Medicine | DX: E11.9 Type 2 diabetes mellitus without complications (principal); Z79.4 Long term (current) use of insulin | CPT/HCPCS: 82043; 82570 ==

== ENCOUNTER 2025-08-10 09:10 | Outpatient (CLI) | payer BC, SELFPAY ==
--- NOTE | 2025-08-10 09:15 | CRLHL7_ITS ---
For Patients: As a result of the Century Cures Act, medical imaging exams and procedure reports are released immediately into your electronic medical record. You may view this report before your referring provider. If you have questions, please contact your health care provider. INDICATION: Prior abnormal MRI of the head TECHNIQUE: Noncontrast Sagittal T1, FLAIR, axial FSE T2, FLAIR, DWI, post contrast axial and coronal T1W images submitted. Compared to prior study from August 01, 2025. 15 cc of Dotarem was administered intravenously.. FINDINGS: The ventricles, sulci and gyri are of normal size, shape and contour for age. Midline structures are centrally located. No convincing evidence of suspicious intra- or extra-axial fluid collections. Stable mild scattered foci of non-enhancing increased T2 signal within the periventricular and subcortical white matter of both cerebral hemispheres. Some of the lesions do demonstrate perpendicular orientation with respect to the long axis of the lateral ventricles. No regions of restricted diffusion or suspicious regions of abnormal parenchymal enhancement. IMPRESSION: 1. Stable mild supratentorial white matter change there are nonspecific but may represent chronic demyelinating plaques. 2. No suspicious enhancing lesions to suggest presence of an active demyelinating plaque. 3. No significant T1 hypointense lesion load. Dictated by Vimal Morris MD @ 08/10/2025 5:34:09 PM (Electronically Signed)
--- NOTE | 2025-08-10 10:15 | CRLHL7_ITS ---
For Patients: As a result of the Century Cures Act, medical imaging exams and procedure reports are released immediately into your electronic medical record. You may view this report before your referring provider. If you have questions, please contact your health care provider. INDICATION: Prior abnormal MRI of the head TECHNIQUE: Noncontrast sagittal T1, T2, STIR, proton density and axial GRE sequences are provided. Supplemental post-contrast sagittal axial T1 weighted sequences are provided. No comparisons. 15 cc of dotarem was administered intravenously. FINDINGS: The overall stature, alignment and intrinsic marrow signal of the cervical spine is within normal limits. Cervical cord is normal. No suspicious disc bulges or protrusions. No suspicious central canal or foraminal narrowing. No suspicious regions of abnormal contrast enhancement. IMPRESSION: Unremarkable MRI of the cervical spine. Dictated by Vimal Morris MD @ 08/10/2025 5:34:44 PM (Electronically Signed)
== END 2025-08-10 09:11 | disposition home or self-care (01) ==
LOC: MRI 09:11
PROVIDERS: PCP Family Medicine; Visit Provider Family Medicine
DX: R90.89 Other abnormal findings on diagnostic imaging of central nervous system (principal); G35.D Multiple sclerosis, unspecified
CPT/HCPCS: 70553; 72156; A9575